=== PATIENT | male | born 1935 | race Caucasian/White ===

== ENCOUNTER → 2016-08-31 | Outpatient (CLI) | payer MEDICARE | LOC: OD 13:16 | PROVIDERS: ATTEND Radiology Radiation Oncology | DX: C61 Malignant neoplasm of prostate (principal) | CPT/HCPCS: 36415; 84153 ==

== ENCOUNTER → 2017-04-29 | Outpatient (CLI) | payer MEDICARE ==
--- NOTE | 2017-04-30 09:22 | RADIOLOGY REPORT (SQ) ---
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 TECHNIQUE: Sagittal and Axial imaging includes T1, T2, STIR and gradient echo sequences. Coronal T2/ HASTE imaging. LIMITATIONS: None. FINDINGS: VISUALIZED UPPER ABDOMEN: Limited evaluation. No acute or suspicious findings suggested. SEGMENTATION: No transitional anatomy. The lowest well-developed disc space is labeled L5-S1. ALIGNMENT: Mild degenerative anterolisthesis L4 on L5 and L5 on S1. VERTEBRAE: Intact. BONE MARROW: Reactive endplate changes L5-S1. DISC SIGNAL: Mild loss of T2 signal L1- 2 and L3-4. POSTERIOR ELEMENTS: Generally intact. No pars defect evident. HARDWARE: None in the spine. CORD AND CONUS: Normal in size and signal intensity. Conus at the appropriate level. SOFT TISSUES: No aortic aneurysm seen. No bulky retroperitoneal adenopathy or mass. No paraspinal mas s or fluid. L1-L2: No significant spinal stenosis or exit foraminal stenosis. L2-L3: Asymmetric leftward disc bulge. Facet overgrowth and ligamentous hypertrophy. Mild central c anal stenosis and left exit foraminal stenosis. L3-L4: Generalized disc bulge. Facet and ligamentous hypertrophy with lateral recess narrowing. Mod erate narrowing of the exit foramina and central canal stenosis. Worse than at L2-3. L4-L5: Generalized degenerative disc and bulge. Marked facet and ligamentous hypertrophy. Mild narr owing of the exit foramina. Marked central canal stenosis. L5-S1: Mild disc bulge without significant spinal stenosis or exit foraminal stenosis. LOWER THORACIC: Incompletely imaged. No stenosis seen. SACRUM: Visualized upper sacrum intact. OTHER: No other significant findings. IMPRESSION: Generalized spondylosis without fractures or worrisome bone lesions. Multilevel spinal stenosis worse at L4-5. Multilevel mild to moderate exit foraminal narrowing. TECHNICAL DOCUMENTATION: JOB ID: [id number]- All Rights Reserved
== END ==
LOC: RAD 16:39
PROVIDERS: ATTEND Family Medicine
DX: M53.1 Cervicobrachial syndrome (principal)
CPT/HCPCS: 72148

== ENCOUNTER → 2017-08-31 | Outpatient (CLI) | payer MEDICARE | LOC: OD 15:03 | PROVIDERS: ATTEND Radiology Radiation Oncology | DX: C61 Malignant neoplasm of prostate (principal) | CPT/HCPCS: 36415; 84153 ==

== ENCOUNTER → 2018-07-29 | Outpatient (CLI) | payer MEDICARE ==
--- NOTE | 2018-07-29 13:47 | RADIOLOGY REPORT (SQ) ---
EXAM DESCRIPTION: DUPLEX ART/MOIZ FLOW COMPLETE COMPLETED DATE/TIME: 07/29/2018 10:39 am REASON FOR STUDY: CHRONIC KIDNEY DISEASE, STAGE 2 (MILD) N18.2 CHRONIC KIDNEY DISEASE, STAGE 2 (MIL D) COMPARISON: None. TECHNIQUE: Realtime and static grayscale images acquired. Selected color Doppler, velocities and spe ctral images recorded. LIMITATIONS: None. FINDINGS: RIGHT KIDNEY: RENAL ARTERY VELOCITIES: 51 cm/sec. Segmental artery velocity 45 cm/sec. RENAL VEIN: Color doppler flow present, patent. VELOCITY RATIO: 0.3. Normal waveforms. KIDNEY: Normal size. There are 2 cysts, largest 3.7 cm. LEFT KIDNEY: RENAL ARTERY VELOCITIES: 45 cm/sec. Segmental artery velocity 33 cm/sec. RENAL VEIN: Color doppler flow present, patent. VELOCITY RATIO: 0.3. Normal waveforms. KIDNEY: Normal size. No significant pathology. BLADDER: Normal. OTHER: No other significant finding. IMPRESSION: NO DOPPLER EVIDENCE OF HEMODYNAMICALLY SIGNIFICANT RENAL ARTERY STENOSIS. COMMENT: NORMAL RENAL ARTERY/AORTA VELOCITY RATIO IS LESS THAN OR EQUAL TO 3.5. TECHNICAL DOCUMENTATION: JOB ID: [id number] [employer]- All Rights Reserved Reading location - IP/workstation name: [email or web address]
== END ==
LOC: RAD 10:01
PROVIDERS: ATTEND Family Medicine
DX: N18.2 Chronic kidney disease, stage 2 (mild) (principal)
CPT/HCPCS: 93975

== ENCOUNTER → 2019-03-15 | Outpatient (CLI) | payer MEDICARE ==
--- NOTE | 2019-03-15 12:01 | RADIOLOGY REPORT (SQ) ---
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 COMPARISON: None. FLUOROSCOPY TIME: FLUORO TIME: 3.4 minutes of fluoroscopy was used. 18 images saved to PACS. LIMITATIONS: None. PROCEDURE: Procedure explained to patient who gave consent. Using sterile technique the bladder was filled through an existing Wasserman catheter with approximately 200 ml of non-ionic contrast via gravity drip. Fluoroscopic imaging was obtained and saved to pac's. FINDINGS: BLADDER: Right ureteral stent is in place with the distal end within the bladder. Upon fi lling the bladder, there was a small amount of extravasation around the right ureteral reimplantation site. Along the right posterior border of the bladder, another small area of extravasation, possibl y in the area of the [place] ureter, can be seen and appears to be a contained contained leak. URETHRA: Not assessed due to Wasserman catheter placement. Retention balloon of the Wasserman catheter lies within the surgical defect from prostate surgery. LEFT URETER: Mild left vesicoureteral reflux. Grade 1 RIGHT URETER: Right ureteral stent in place. A ureteral stent is placement and there is reflux of co ntrast into the right renal collecting system. Recent right ureteral reimplantation. OTHER FINDINGS: No other abnormality noted in soft tissues or bone. POST VOID: There is complete emptying of the bladder been drained through Wasserman catheter. Extravasat ed contrast can be seen along the superior and right posterolateral aspect of the bladder. OTHER: No other significant finding. IMPRESSION: EXTRAVASATION ALONG THE RIGHT POSTERIOR LATERAL ASPECT OF THE BLADDER, POSSIBLY FROM THE AREA OF URETERAL RESECTION. SMALL AMOUNT OF EXTRAVASATION AROUND THE RIGHT URETERAL REIMPLANTATION SITE. RIGHT URETERAL STENT IS PATENT. GRADE 1 LEFT VESICOURETERAL REFLUX. COMMENT: Quality ID [id number]: Final reports for procedures using fluoroscopy that document radiation exp osure indices, or exposure time and number of fluorographic images (if radiation exposure indices are not available) TECHNICAL DOCUMENTATION: JOB ID: [id number] [employer]- All Rights Reserved Reading location - IP/workstation name: [email or web address] [id number]
== END ==
LOC: RAD 08:46
PROVIDERS: ATTEND Urology
DX: C67.2 Malignant neoplasm of lateral wall of bladder (principal); N13.70 Vesicoureteral-reflux, unspecified
CPT/HCPCS: 74430

== ENCOUNTER → 2019-06-05 | Outpatient (CLI) | payer MEDICARE ==
--- NOTE | 2019-06-05 12:28 | RADIOLOGY REPORT (SQ) ---
EXAM DESCRIPTION: CHEST PA/LATERAL COMPLETED DATE/TIME: 06/05/2019 11:56 am REASON FOR STUDY: CHILLS (WITHOUT FEVER) COMPARISON: 04/17/2016 EXAM PARAMETERS: NUMBER OF VIEWS: two views TECHNIQUE: Digital Frontal and Lateral radiographic views of the chest acquired. RADIATION DOSE: NA LIMITATIONS: none FINDINGS: LUNGS AND PLEURA: No opacities, masses or pneumothorax. No pleural effusion. Emphysematou s change with increased AP diameter. MEDIASTINUM AND HILAR STRUCTURES: No masses or contour abnormalities. HEART AND VASCULAR STRUCTURES: Heart normal size. No evidence for failure. Aortic atherosclerosis. BONES: No acute findings. HARDWARE: None in the chest. OTHER: No other significant finding. IMPRESSION: No focal consolidation or other evidence of acute cardiopulmonary process. TECHNICAL DOCUMENTATION: JOB ID: [id number] [employer]- All Rights Reserved Reading location - IP/workstation name: [email or web address]
== END ==
LOC: OD 11:38
PROVIDERS: ATTEND Family Medicine
DX: R68.83 Chills (without fever) (principal)
CPT/HCPCS: 71046

== ENCOUNTER → 2019-06-19 | Outpatient (CLI) | payer MEDICARE ==
--- NOTE | 2019-06-20 10:30 | RADIOLOGY REPORT (SQ) ---
EXAM DESCRIPTION: CT ABD/PELVIS NO ORAL OR IV COMPLETED DATE/TIME: 06/19/2019 4:03 pm REASON FOR STUDY: N28.9 DISORDER OF KIDNEY AND URETER, UNSPECIFIED N28.9 DISORDER OF KIDNEY AND URE TER, UNSPECIFIED COMPARISON: CT abdomen pelvis 03/10/2013, 12/29/2018 TECHNIQUE: CT scan of the abdomen and pelvis performed without intravenous or oral contrast. Images reviewed with lung, soft tissue, and bone windows. Reconstructed coronal and sagittal MPR images revi ewed. All images stored on PACS. All CT scanners at this facility use dose modulation, iterative reconstruction, and/or weight based d osing when appropriate to reduce radiation dose to as low as reasonably achievable (ALARA). [facility]: Dose Right [facility]: CareDose [facility]: Dose Right [facility]: Teradose 4D [facility]: Smart [employer] RADIATION DOSE: CT Rad equipment meets quality standard of care and radiation dose reduction techniq ues were employed. CTDIvol: 23.1 mGy. DLP: 1235 mGy-cm.mGy. LIMITATIONS: No IV or oral contrast. FINDINGS: Marked right hydronephrosis and hydroureter is seen down to the level where the ureter crocheter hand sses the iliac vessels. Just distal to this point, significant retroperitoneal soft tissue stranding is present with an adjacent 2 cm soft tissue mass abutting the distal right ureter. It is unclear w hether this represents a primary ureteral neoplasm with obstruction, or whether this represents prima ry colonic mass or colonic diverticulosis/inflammation causing right ureteral obstruction. These fin dings are best shown on axial images 70 through 78, and coronal images 58 through 74. Evaluation is limited by lack of IV and oral contrast. There is heterogeneous appearance of of normal size prostate, question bladder wall thickening along the right bladder trigone. Prostate cancer with regional metastatic nodes could cause this appearanc e. Report called to Dr. Cox. LOWER CHEST: No significant findings. No nodules or infiltrates. NON-CONTRASTED LIVER, SPLEEN, ADRENALS: Multiple benign hepatic cysts. Spleen, adrenal glands unrema rkable. PANCREAS: No masses. No peripancreatic inflammatory changes. GALLBLADDER: No identified stones by CT criteria. No inflammatory changes to suggest cholecystitis. RIGHT KIDNEY AND URETER: 4 cm cyst right upper pole kidney. Marked right hydronephrosis and hydroure ter as above. LEFT KIDNEY AND URETER: No suspicious masses. Assessment limited by lack of IV contrast. No signifi cant calcifications. No hydronephrosis or hydroureter. AORTA AND RETROPERITONEUM: No aneurysm. No retroperitoneal masses or adenopathy. BOWEL AND PERITONEAL CAVITY: No CT evidence of bowel obstruction or free intraperitoneal air or fluid . Descending and sigmoid colon diverticuli are present. Adjacent to the abnormal ureter, a short se gment of thick-walled sigmoid colon is present. Tumor or inflammation may be present in this segment of colon. APPENDIX: Surgically absent PELVIS, BLADDER, AND ABDOMINAL WALL:Findings as above BONES: No significant findings. OTHER: No other significant finding. IMPRESSION: Significant right hydronephrosis and hydroureter down to the distal right ureter. At th is point, abnormalities in the pelvic soft tissues adjacent to the ureter present contiguous with the sigmoid colon. Abnormal bladder wall thickening right bladder trigone postoperative changes to the prostate. Differential is primary distal right ureteral tumor versus extrinsic compression from colo n cancer or prostate cancer Findings discussed with Dr. Cox COMMENT: Quality ID # [id number]: Final reports with documentation of one or more dose reduction techniques (e.g., Automated exposure control, adjustment of the mA and/or kV according to patient size, use of iterative reconstruction technique) TECHNICAL DOCUMENTATION: JOB ID: [id number] [employer]- All Rights Reserved Reading location - IP/workstation name: [email or web address]
== END ==
LOC: RAD 14:58
PROVIDERS: ATTEND Physician Assistant
DX: N28.9 Disorder of kidney and ureter, unspecified (principal); N13.30 Unspecified hydronephrosis; N28.1 Cyst of kidney, acquired
CPT/HCPCS: 74176

== ENCOUNTER 2019-12-02 19:31 | Inpatient (IN) | payer MEDICARE ==
--- NOTE | 2019-12-02 19:39 | ER Document Report ---
ED Medical Screen (RME) - General Stated Complaint: ALTERED MENTAL STATUS Time Seen by Provider: 12/02/19 19:34 Primary Care Provider: LUPE ESPINOZA PA-C [Primary Care Provider] - Follow up as needed Notes: 84-year-old male who is normally alert and oriented x3 and functions independently apparently stopped responding to commands approximately 3 hours ago and was brought to the emergency department via EMS. EMS states that he armando l not follow any commands but is moving all 4 extremities equally. Cannot give me any other history. Physical exam I did examine the patient on the EMS stretcher as he was rolled into the emergency department, he is tachypneic, appears anxious, appears mildly short of breath, does move both arms but will not follow my commands to squeeze my hands. When I say his name he will turn and look at me. Patient was sent to the CT scanner to rule out acute hemorrhage. No focal deficits that would indicate acute ischemic stroke at this moment. Not made into a stroke alert. TRAVEL OUTSIDE OF THE [place] IN LAST 30 DAYS: No - Related Data Allergies/Adverse Reactions: Tetanus Vaccines and Toxoid [Tetanus] Allergy (Severe, Verified 04/17/16 09:19) reaction in Past Medical History - Past Medical History Cardiac Medical History: Reports: Hx Hypercholesterolemia, Hx Hypertension - meds x 20 yrs Denies: Hx Coronary Artery Disease, Hx Heart Attack Pulmonary Medical History: Reports: Hx Pneumonia - as child Denies: Hx Asthma, Hx Bronchitis, Hx COPD Neurological Medical History: Denies: Hx Cerebrovascular Accident, Hx Seizures Malignancy Medical History: Reports Hx Prostate Cancer Musculoskeltal Medical History: Denies Hx Arthritis Past Surgical History: Reports: Hx Urinary Tract Surgery. Denies: Hx Pacemaker - Immunizations Hx Diphtheria, Pertussis, Tetanus Vaccination: Yes Doctor's Discharge - Discharge Referrals: LUPE ESPINOZA PA-C [Primary Care Provider] - Follow up as needed
[2019-12-02] MEDS ORDERED: NORMAL SALINE IV PRN (20:02)
--- NOTE | 2019-12-02 20:15 | RADIOLOGY REPORT (SQ) ---
EXAM DESCRIPTION: CT HEAD WITHOUT IV CONTRAST COMPLETED DATE/TME: 12/02/2019 19:34 CLINICAL INDICATION: 84-year-old male with altered mental status. COMPARISON: None. TECHNIQUE: CT brain without contrast. This exam was performed according to our departmental dose optimization program which includes use of automated exposure control, adjustment of the mA and/or kV according to patient size and/or use of iterative reconstruction technique. FINDINGS: Motion limited examination Multifocal regions of patchy hypoattenuation are present in a subcortical and periventricular deep white matter distribution, nonspecific; however, most likely represent small vessel ischemic disease, age indeterminate. The ventricles, and sulci are prominent compatible with underlying volume loss. The hayden-white matter differentiation is preserved. There is no mass effect, midline shift, intra- or extra-axial fluid collection/acute hemorrhage. The osseous structures are unremarkable. The paranasal sinuses and mastoid air cells are clear. IMPRESSION: 1. No acute intracranial abnormalities. Nonspecific white matter change most likely small vessel ischemic disease, age indeterminate. 2. CT is insensitive for early evaluation of acute stroke. If there is clinical concern for acute ischemia, an MRI may be considered.
[2019-12-02 20:35] LABS: INTERNATIONAL RATION (INR) 1.25; PROTHROMBIN TIME 15.9 SEC (11.4-15.4)
[2019-12-02 20:36] LABS: APPEARANCE,URINE CLOUDY; BILIRUBIN,URINE NEGATIVE (NEGATIVE); COLOR,URINE YELLOW; GLUCOSE, URINE NEGATIVE (NEGATIVE); KETONES,URINE NEGATIVE (NEGATIVE); PROTEIN,URINE 100 mg/dL (NEGATIVE); URINE SPECIFIC GRAVITY 1.015; UROBILINOGEN,URINE NEGATIVE mg/dL (<2.0)
[2019-12-02 20:38] LABS: HEMATOCRIT 28.9 % (37.9-51.0); HEMOGLOBIN 9.2 g/dL (13.5-17.0); MEAN CORPUSCULAR HEMOGLOBIN 26.2 pg (27.0-33.4); MEAN CORPUSCULAR HGB CONC 31.7 g/dL (32.0-36.0); MEAN CORPUSCULAR VOLUME 83 fl (80-97)
[2019-12-02 20:52] LABS: ALKALINE PHOSPHATASE 312 U/L (38-126); ANION GAP 15 (5-19); ASPARTATE AMINO TRANSFERASE 44 U/L (17-59); BILIRUBIN,DIRECT 0.4 mg/dL (0.0-0.4); BILIRUBIN,TOTAL 1.2 mg/dL (0.2-1.3); BLOOD UREA NITROGEN 25 mg/dL (7-20); CALCIUM 8.9 mg/dL (8.4-10.2); CARBON DIOXIDE 16 mmol/L (22-30); CHLORIDE 97 mmol/L (98-107); GLUCOSE 99 mg/dL (75-110); POTASSIUM 5.8 mmol/L (3.6-5.0); TOTAL PROTEIN 6.4 g/dL (6.3-8.2)
--- NOTE | 2019-12-02 20:54 | RADIOLOGY REPORT (SQ) ---
XR CHEST 1 VIEW HISTORY: AMS, tachypnea. COMPARISON: 06/05/2019 FINDINGS: The heart size is within normal limits. There is no pulmonary vascular congestion. No consolidation, pleural effusion, or pneumothorax is seen. The bony structures are preserved. IMPRESSION: No evidence of acute cardiopulmonary disease.
[2019-12-02 21:06] LABS: ABSOLUTE LYMPHOCYTES# (MANUAL) 1.7 10^3/uL (0.5-4.7); ABSOLUTE MONOCYTES # (MANUAL) 0.7 10^3/uL (0.1-1.4); BAND NEUTROPHILS % (MANUAL) 2 % (3-5); BASOPHILS % (MANUAL) 0 % (0-2); EOSINOPHILS % (MANUAL) 1 % (0-6); LYMPHOCYTES % (MANUAL) 7 % (13-45); MONOCYTES % (MANUAL) 3 % (3-13); SEGMENTED NEUTROPHILS % (MAN) 87 % (42-78); TOTAL CELLS COUNTED 100
[2019-12-02 21:07] LABS: ANISOCYTOSIS 1+; HYPOCHROMASIA 1+; POLYCHROMASIA 1+
--- NOTE | 2019-12-02 21:07 | EKG REPORT ---
SEVERITY:- ABNORMAL ECG - WIDE COMPLEX TACHYCARDIA RBBB AND LAFB : Confirmed by: Evie Rojas MD 02-Dec-2019 21:06:39
[2019-12-02 21:08] LABS: PLATELET COMMENT ADEQUATE; PLATELET COUNT 551 10^3/uL (150-450)
[2019-12-02] MEDS ORDERED: PIPERACILLIN/TAZOBACTAM 4.5 GM VIAL IV ONE (21:13)
[2019-12-02] MEDS: PIPERACILLIN SODIUM/TAZOBACTAM 4.5 GM in NORMAL SALINE 100 ML IV SCH (21:15)
[2019-12-02 21:16] LABS: VENOUS BLOOD BASE EXCESS 0.1 mmol/L; VENOUS BLOOD HCO3 19.3 mmol/L (20-32); VENOUS BLOOD PH 7.64 (7.30-7.42)
[2019-12-02 21:46] LABS: VENOUS BLOOD PCO2 18.3 mmHg (35-63)
[2019-12-02] MEDS ORDERED: HYDROMORPHONE HCL INJ/PF 2 MG/ML AMPULE IV ONE (22:12)
--- NOTE | 2019-12-02 23:13 | RADIOLOGY REPORT (SQ) ---
EXAM DESCRIPTION: CT ABDOMEN PELVIS WITH IV CONTRAST COMPLETED DATE/TME: 12/02/2019 20:06 CLINICAL HISTORY: 84 years, Male, AMS, ABDOMINAL Pain This exam was performed according to our departmental dose-optimization program which includes automated exposure control, adjustment of the mA and/or kVp according to patient size and/or use of iterative reconstruction technique where applicable. As per history from technologist, contrast did not enter vascular circulation due to faulty IV. Compared to chest CT dated 08/31/2019. CT abdomen and pelvis dated 06/19/2019. FINDINGS: Visualized lung bases are within normal limits. Liver demonstrates multiple cysts measuring up to 3.5 cm. Liver is noted optimally evaluated due to streak artifact from adjacent arms and noncontrast imaging. Spleen, pancreas, adrenal glands are within normal limits. Gallbladder is unremarkable. There is interval development of soft tissue mass in the right kidney measuring 5.3 x 4.9 cm, which appears new from the prior study. Previously noted right hydronephrosis has resolved. There is also posterior right renal cyst measuring 3.4 cm, similar to prior study. There is no renal, ureteral or bladder calculus. No dilated loops of bowel to suggest obstruction. Mild amount of stool in the colon. Mild diffuse colonic diverticulosis without CT evidence for acute diverticulitis. There is a left lower quadrant ostomy noted. No free fluid or free air. Bladder is unremarkable. No abdominal or pelvic lymphadenopathy. Abdominal aorta moderately calcified without aneurysm. IMPRESSION: Right renal soft tissue mass is suspected, newly developed from prior CT abdomen dated 06/19/2019. Correlate clinically. Previously noted right hydronephrosis has resolved recommend follow-up renal ultrasound for further evaluation and follow-up CT with IV contrast with functioning IV.
--- NOTE | 2019-12-02 23:29 | ER Document Report ---
ED General - General Chief Complaint: Altered Mental Status Stated Complaint: ALTERED MENTAL STATUS Time Seen by Provider: 12/02/19 19:34 Primary Care Provider: LUPE ESPINOZA PA-C [Primary Care Provider] - Follow up as needed Mode of Arrival: Medic Information source: Emergency Med Personnel Notes: This 84-year-old male presents to the emergency department via EMS with a history of altered mental status. Apparently, he has developed decreased responsiveness, he is a normal and alert and responsive man with history of: CVA and bladder CA. He has received radiation therapy in October and immuno therapy for colon cancer. also notes that he has had some increased abdominal pain today. TRAVEL OUTSIDE OF THE [place] IN LAST 30 DAYS: No - Related Data Allergies/Adverse Reactions: Tetanus Vaccines and Toxoid [Tetanus] Allergy (Severe, Verified 04/17/16 09:19) reaction in Past Medical History - Social History Smoking Status: Unknown if Ever Smoked Family History: Other - Mother-Pacemaker - Past Medical History Cardiac Medical History: Reports: Hx Hypercholesterolemia, Hx Hypertension - meds x 20 yrs Denies: Hx Coronary Artery Disease, Hx Heart Attack Pulmonary Medical History: Reports: Hx Pneumonia - as child Denies: Hx Asthma, Hx Bronchitis, Hx COPD Neurological Medical History: Denies: Hx Cerebrovascular Accident, Hx Seizures Malignancy Medical History: Reports Hx Prostate Cancer Musculoskeletal Medical History: Denies Hx Arthritis Past Surgical History: Reports: Hx Urinary Tract Surgery. Denies: Hx Pacemaker - Immunizations Hx Diphtheria, Pertussis, Tetanus Vaccination: Yes Hx Pneumococcal Vaccination: 03/04/15 Review of Systems - Review of Systems -: Yes ROS unobtainable due to patient's medical condition - Due to altered status. Physical Exam - Vital signs Vitals: BP 106/85 12/02/19 19:50 - Notes Notes: PHYSICAL EXAMINATION: Physical Exam: General: Chronically ill-appearing 84-year-old man in extremities. HEENT: NC/AT, pupils equal round and reactive to light, MM moist,nares clear, oropharynx clear, airway patent Neck: supple, no adenopathy, no masses. Good range of motion Lungs: clear, no wheezing, no rales no rhonchi CVS: Regular rate and rhythm no murmur gallop or rub Abdomen: Soft, active, diffusely tender, no rebound, no masses, colostomy in left lower quadrant, draining. Ext: No edema, clubbing or cyanosis. Neuro: Alert, unable to answer questions, does not follow verbal commands. Course - Re-evaluation Re-evalutation: 12/02/19 23:34 Patient received as a acute altered mental status, CT scan of the head was performed, there are no focal neurologic findings, CT negative for hemorrhage, no signs of acute stroke. Evaluation of the patient question of sepsis with metabolic encephalopathy, diverticulitis with secondary sepsis and volume dep letion with ruptured viscus. Blood cultures x2, lactic acid, and IV fluids 30 mL/kg given in the emergency department. Patient is sent to CT for CT abdomen and pelvis with IV contrast. Apparently the IV blew and the patient did not receive IV contrast. Interpretation notes acute diverticulitis and a new renal mass. 12/03/19 00:08 I discussed the patient with the on-call physician for Dr. Cox, Dr. Gatica, he will admit the patient to the IMCU for further evaluation and treatment. - Vital Signs Vital signs: Temp Pulse Resp BP Pulse Ox 98 F 140 H 22 H 118/65 98 12/02/19 20:14 12/02/19 20:18 12/02/19 23:01 12/02/19 23:01 12/02/19 20:18 - Laboratory Result Diagrams: 12/02/19 20:10 12/02/19 20:10 Laboratory results interpreted by me: 12/02/19 12/02/19 12/02/19 20:10 20:10 20:10 WBC 24.0 H RBC 3.50 L Hgb 9.2 L Hct 28.9 L MCH 26.2 L MCHC 31.7 L RDW 19.0 H Plt Count 551 H Seg Neuts % (Manual) 87 H Band Neutrophils % 2 L Lymphocytes % (Manual) 7 L Abs Neuts (Manual) 21.4 H PT 15.9 H VBG pH VBG pCO2 VBG HCO3 Sodium 127.5 L Potassium 5.8 H Chloride 97 L Carbon Dioxide 16 L BUN 25 H Creatinine 1.60 H Est GFR ( Amer) 50 L Est GFR (MDRD) Non-Af 41 L Lactic Acid Alkaline Phosphatase 312 H Albumin 3.0 L Urine Protein Urine Blood Leukocyte Esterase Rfl 12/02/19 12/02/19 12/02/19 20:10 20:59 20:59 WBC RBC Hgb Hct MCH MCHC RDW Plt Count Seg Neuts % (Manual) Band Neutrophils % Lymphocytes % (Manual) Abs Neuts (Manual) PT VBG pH 7.64 H VBG pCO2 18.3 L* VBG HCO3 19.3 L Sodium Potassium Chloride Carbon Dioxide BUN Creatinine Est GFR ( Amer) Est GFR (MDRD) Non-Af Lactic Acid 3.4 H Alkaline Phosphatase Albumin Urine Protein 100 H Urine Blood LARGE H Leukocyte Esterase Rfl LARGE H 12/02/19 23:43 I have reviewed laboratory data and used this information for the treatment decisions regarding the patient. - Diagnostic Test Radiology reviewed: Image reviewed, Reports reviewed Radiology results interpreted by me: 12/02/19 23:46 Chest x-ray: No acute cardiopulmonary findings. CT head: No acute intracranial abnormalities, nonspecific white matter changes most likely small vessel ischemic disease, age indeterminate CT abdomen and pelvis: CT evidence for acute diverticulitis, there is a left lower quadrant ostomy noted. No free fluid or free air. Right renal soft tissue mass is suspected, newly developed from prior CT dated 06/19/2019. Previous right hydronephrosis has resolved. Radiology is recommending a follow- up renal ultrasound. - EKG Interpretation by Me EKG shows normal: ST-T Waves - No acute ST or T wave changes suggestive of ischemia. Rate: Tachycardia - Wide-complex tachycardia [place]/QRS: Left axis deviation, RBBB, LAHB/LAFB - Left anterior fascicular block, right bundle branch block Critical Care Note - Critical Care Note Total time excluding time spent on procedures (mins): 60 - Critical care time spent obtaining history from patient or surrogate, discussions with consultants, development of treatment plan with patient or surrogate, evaluation of patient's response to treatment, examination of patient, ordering and performing treatments and interventions, ordering and review of laboratory studies, re- evaluation of patient's condition, ordering and review of radiographic studies and review of old charts Discharge - Discharge Clinical Impression: Acute diverticulitis, Metabolic encephalopathy Abdominal pain Qualifiers: Abdominal location: unspecified location Qualified Code(s): R10.9 - Unspecified abdominal pain Sepsis Qualifiers: Sepsis type: sepsis due to unspecified organism Sepsis acute organ dysfunction status: unspecified Qualified Code(s): A41.9 - Sepsis, unspecified organism Condition: Fair Disposition: ADMITTED INPATIENT Admitting Provider: [facility] Unit Admitted: IMCU Referrals: LUPE ESPINOZA PA-C [Primary Care Provider] - Follow up as needed
[2019-12-03] MEDS ORDERED: HYDROMORPHONE HCL INJ/PF 2 MG/ML AMPULE IV ONE (00:12)
[2019-12-03] MEDS: PIPERACILLIN SODIUM/TAZOBACTAM 4.5 GM in NORMAL SALINE 100 ML IV SCH ×4 (01:05→17:06)
[2019-12-03] MEDS ORDERED: NORMAL SALINE 1000 ML 1,000 ML IV PRN (02:34)
[2019-12-03] MEDS: HYDROMORPHONE HCL INJ/PF 2 MG/ML AMPULE IV PRN (02:52)
[2019-12-03 03:42] LABS: ARTERIAL BLOOD BASE EXCESS -4.4 mmol/L; ARTERIAL BLOOD FIO2 28%; ARTERIAL BLOOD H2CO3 0.53 mmol/L (1.05-1.35); ARTERIAL BLOOD HCO3 16.4 mmol/L (20-24); ARTERIAL BLOOD O2 SATURATION 98.8 % (94-98); ARTERIAL BLOOD PH 7.59 (7.35-7.45)
[2019-12-03 03:43] LABS: ARTERIAL BLOOD PCO2 17.7 mmHg (35-45)
[2019-12-03] MEDS ORDERED: PIPERACILLIN/TAZOBACTAM 4.5 GM VIAL IV ONE (05:06)
[2019-12-03] MEDS: HEPARIN SOD (PORCINE) 5,000 UNIT/ML 1 ML VIAL SUBCUT SCH ×2 (06:48→14:13)
[2019-12-03 09:40] LABS: HEMATOCRIT 22.8 % (37.9-51.0); MEAN CORPUSCULAR HEMOGLOBIN 25.5 pg (27.0-33.4); MEAN CORPUSCULAR HGB CONC 31.8 g/dL (32.0-36.0); MEAN CORPUSCULAR VOLUME 80 fl (80-97); PLATELET COUNT 413 10^3/uL (150-450); RED BLOOD COUNT 2.85 10^6/uL (4.35-5.55); RED CELL DISTRIBUTION WIDTH 19.2 % (11.5-14.0)
[2019-12-03 09:51] LABS: ANION GAP 7 (5-19); BLOOD UREA NITROGEN 26 mg/dL (7-20); CALCIUM 7.8 mg/dL (8.4-10.2); CARBON DIOXIDE 18 mmol/L (22-30); CHLORIDE 105 mmol/L (98-107); GLUCOSE 88 mg/dL (75-110); POTASSIUM 5.6 mmol/L (3.6-5.0)
[2019-12-03 10:06] LABS: ABSOLUTE LYMPHOCYTES# (MANUAL) 0.1 10^3/uL (0.5-4.7); ABSOLUTE MONOCYTES # (MANUAL) 1.4 10^3/uL (0.1-1.4); BASOPHILS % (MANUAL) 0 % (0-2); EOSINOPHILS % (MANUAL) 0 % (0-6); LYMPHOCYTES % (MANUAL) 1 % (13-45); MONOCYTES % (MANUAL) 12 % (3-13); SEGMENTED NEUTROPHILS % (MAN) 87 % (42-78); TOTAL CELLS COUNTED 100
[2019-12-03 10:08] LABS: ANISOCYTOSIS 2+; HYPOCHROMASIA SLIGHT; OVALOCYTES 1+; PLATELET COMMENT ADEQUATE
[2019-12-03 10:09] LABS: HEMOGLOBIN 7.3 g/dL (13.5-17.0)
--- NOTE | 2019-12-03 11:30 | PDOC H&P ---
History of Present Illness Admission Date/PCP: 12/03/19 00:21 LUPE GARDUNO PA-C History of Present Illness: ANJALI SABA is a 84 year old male he came to the emergency room last night for evaluation of altered mental status, based on the emergency room record patient apparently developed decreased responsiveness, he is normally alert and responsive, he has a history of malignant neoplasm of the colon status post induction therapy in October and also immunotherapy he also has a history of bladder cancer based on the record. In the emergency room a non-contrasted CT at was done, there was no acute findings. The blood work that was done demonstrated severe leukocytosis white blood cell count 24,000 with a left shift that was lactic acidosis sepsis was suspected based on the presentation, including acute encephalopathy, acute kidney injury, severe leukocytosis family also stated that he has abdominal pain based on diet history a noncontrasted CT scan of the abdomen was obtained, it demonstrated multiple cysts in the liver measuring up to 3.5 cm also found was an interval development of soft tissue mass in the right kidney measure 5.3 x 4.8 cm which apparently was new compared to prior study from 06/19/2019 the previously noted right hydronephrosis has resolved patient was admitted to the hospital and started treatment for sepsis the CAT scan of the abdomen showed acute diverticulitis. He has grossly abnormal lab work that was hyponatremia. When I saw the patient on the floor he was somewhat confused, he is disoriented to place time and person but is alert, is not stuporous the arterial blood gas on FiO2 of 28%, pH 7.59, PCO2 17.7, PO2 112, bicarbonate 16.4 consistent with respiratory alkalosis secondary to metabolic acidosis Past Medical History Cardiac Medical History: Reports: Hyperlipidema, Hypertension - meds x 20 yrs Pulmonary Medical History: Reports: Pneumonia - as child Malignancy Medical History: Reports: Colorectal Cancer Social History Smoking Status: Unknown if Ever Smoked Electronic Cigarette use?: No Frequency of Alcohol Use: None Hx Recreational Drug Use: No Drugs: None Hx Prescription Drug Abuse: No Family History Family History: Other - Mother-Pacemaker Parental Family History Reviewed: Yes Children Family History Reviewed: Yes Sibling(s) Family History Reviewed.: Yes Medication/Allergy Home Medications: Lisinopril/Hydrochlorothiazide [Zestoretic 20-12.5 mg Tablet] 1 tab PO DAILY 05/07/12 Fluticasone Propionate [Flonase Nasal [place] 50 Mcg/[place] 16 gm] 2 spray NASL DAILY PRN 08/29/14 Metformin HCl [Glucophage 500 mg Tablet] 500 mg PO DAILY 08/29/14 Atorvastatin Calcium 40 mg PO DAILY 04/17/16 Rivaroxaban [Xarelto] 20 mg PO DAILY 04/17/16 Allergies/Adverse Reactions: Tetanus Vaccines and Toxoid [Tetanus] Allergy (Severe, Verified 04/17/16 09:19) reaction in Review of Systems Constitutional: PRESENT: night sweats. ABSENT: chills, fever(s), headache(s), weight gain, weight loss Eyes: ABSENT: visual disturbances Ears: ABSENT: hearing changes Cardiovascular: ABSENT: chest pain, dyspnea on exertion, edema, orthropnea, palpitations Respiratory: ABSENT: cough, hemoptysis Gastrointestinal: ABSENT: abdominal pain, constipation, diarrhea, hematemesis, hematochezia, nausea, vomiting Genitourinary: ABSENT: dysuria, hematuria Musculoskeletal: ABSENT: joint swelling Integumentary: ABSENT: rash, wounds Neurological: ABSENT: abnormal gait, abnormal speech, confusion, dizziness, focal weakness, syncope Psychiatric: ABSENT: anxiety, depression, homidical ideation, suicidal ideation Endocrine: ABSENT: cold intolerance, heat intolerance, menstrual abnormalities, polydipsia, polyuria Hematologic/Lymphatic: ABSENT: easy bleeding, easy bruising, lymphadenopathy Physical Exam Vital Signs: Temp Pulse Resp BP Pulse Ox 98.5 F 81 19 109/46 L 100 12/03/19 08:43 12/03/19 08:43 12/03/19 08:43 12/03/19 08:43 12/03/19 08:43 Intake & Output 12/02/19 12/03/19 12/04/19 06:59 06:59 06:59 Intake Total 2875 Balance 2875 Weight 82.3 kg General appearance: PRESENT: no acute distress, well-developed, well-nourished Head exam: PRESENT: atraumatic, normocephalic Eye exam: PRESENT: PERRLA Ear exam: PRESENT: normal external ear exam Mouth exam: PRESENT: moist, tongue midline Neck exam: PRESENT: full ROM Respiratory exam: PRESENT: clear to auscultation enmanuel Cardiovascular exam: PRESENT: RRR, +S1, +S2 Vascular exam: PRESENT: normal capillary refill GI/Abdominal exam: PRESENT: mass, normal bowel sounds, soft, other - There is a palpable mass in the right midabdomen below the liver, there is colostomy bag in the left quadrant of the abdomen Rectal exam: PRESENT: deferred Neurological exam: PRESENT: alert Psychiatric exam: PRESENT: appropriate affect, normal mood Skin exam: PRESENT: dry, intact, warm. ABSENT: cyanosis, rash Results Laboratory Results: 12/03/19 09:10 12/03/19 09:10 12/02/19 12/02/19 12/02/19 20:10 20:10 20:10 WBC 24.0 H RBC 3.50 L Hgb 9.2 L Hct 28.9 L MCV 83 MCH 26.2 L MCHC 31.7 L RDW 19.0 H Plt Count 551 H Seg Neutrophils % Not Reportable Carbonic Acid HCO3/H2CO3 Ratio ABG pH ABG pCO2 ABG pO2 ABG HCO3 ABG O2 Saturation ABG Base Excess VBG pH VBG pCO2 VBG HCO3 VBG Base Excess FiO2 Sodium 127.5 L Potassium 5.8 H Chloride 97 L Carbon Dioxide 16 L Anion Gap 15 BUN 25 H Creatinine 1.60 H Est GFR ( Amer) 50 L Glucose 99 Lactic Acid Calcium 8.9 Total Bilirubin 1.2 AST 44 Alkaline Phosphatase 312 H Total Protein 6.4 Albumin 3.0 L Urine Color YELLOW Urine Appearance CLOUDY Urine pH 8.0 Ur Specific [place] 1.015 Urine Protein 100 H Urine Glucose (UA) NEGATIVE Urine Ketones NEGATIVE Urine Blood LARGE H Urine RBC (Auto) >182 12/02/19 12/02/19 12/03/19 20:59 20:59 00:47 WBC RBC Hgb Hct MCV MCH MCHC RDW Plt Count Seg Neutrophils % Carbonic Acid HCO3/H2CO3 Ratio ABG pH ABG pCO2 ABG pO2 ABG HCO3 ABG O2 Saturation ABG Base Excess VBG pH 7.64 H VBG pCO2 18.3 L* VBG HCO3 19.3 L VBG Base Excess 0.1 FiO2 Sodium Potassium Chloride Carbon Dioxide Anion Gap BUN Creatinine Est GFR ( Amer) Glucose Lactic Acid 3.4 H 2.3 H Calcium Total Bilirubin AST Alkaline Phosphatase Total Protein Albumin Urine Color Urine Appearance Urine pH Ur Specific [place] Urine Protein Urine Glucose (UA) Urine Ketones Urine Blood Urine RBC (Auto) 12/03/19 12/03/19 12/03/19 02:58 03:30 05:18 WBC RBC Hgb Hct MCV MCH MCHC RDW Plt Count Seg Neutrophils % Carbonic Acid 0.53 L HCO3/H2CO3 Ratio 30:1 ABG pH 7.59 H ABG pCO2 17.7 L* ABG pO2 112.0 H ABG HCO3 16.4 L ABG O2 Saturation 98.8 H ABG Base Excess -4.4 VBG pH VBG pCO2 VBG HCO3 VBG Base Excess FiO2 28% Sodium Potassium Chloride Carbon Dioxide Anion Gap BUN Creatinine Est GFR ( Amer) Glucose Lactic Acid 1.3 1.0 Calcium Total Bilirubin AST Alkaline Phosphatase Total Protein Albumin Urine Color Urine Appearance Urine pH Ur Specific [place] Urine Protein Urine Glucose (UA) Urine Ketones Urine Blood Urine RBC (Auto) 12/03/19 12/03/19 12/03/19 09:10 09:10 09:10 WBC 12.0 H RBC 2.85 L Hgb 7.3 L Hct 22.8 L MCV 80 MCH 25.5 L MCHC 31.8 L RDW 19.2 H Plt Count 413 Seg Neutrophils % Not Reportable Carbonic Acid HCO3/H2CO3 Ratio ABG pH ABG pCO2 ABG pO2 ABG HCO3 ABG O2 Saturation ABG Base Excess VBG pH VBG pCO2 VBG HCO3 VBG Base Excess FiO2 Sodium 129.6 L Potassium 5.6 H Chloride 105 Carbon Dioxide 18 L Anion Gap 7 BUN 26 H Creatinine 1.62 H Est GFR ( Amer) 49 L Glucose 88 Lactic Acid 1.3 Calcium 7.8 L Total Bilirubin AST Alkaline Phosphatase Total Protein Albumin Urine Color Urine Appearance Urine pH Ur Specific [place] Urine Protein Urine Glucose (UA) Urine Ketones Urine Blood Urine RBC (Auto) 12/02/19 20:59 Troponin I 0.037 Impressions: Head CT 12/02/19 19:34 IMPRESSION: 1. No acute intracranial abnormalities. Nonspecific white matter change most likely small vessel ischemic disease, age indeterminate. 2. CT is insensitive for early evaluation of acute stroke. If there is clinical concern for acute ischemia, an MRI may be considered. Chest X-Ray 12/02/19 19:35 IMPRESSION: No evidence of acute cardiopulmonary disease. Abdomen/Pelvis CT 12/02/19 20:06 IMPRESSION: Right renal soft tissue mass is suspected, newly developed from prior CT abdomen dated 06/19/2019. Correlate clinically. Previously noted right hydronephrosis has resolved recommend follow-up renal ultrasound for further evaluation and follow-up CT with IV contrast with functioning IV. Assessment & Plan - Diagnosis (1) Sepsis Qualifiers: Sepsis type: sepsis due to unspecified organism Sepsis acute organ dysfunction status: with acute organ dysfunction Severe sepsis acute organ dysfunction type: encephalopathy Severe sepsis shock status: without septic shock Qualified Code(s): A41.9 - Sepsis, unspecified organism; R65.20 - Severe sepsis without septic shock; G93.40 - Encephalopathy, unspecified Is this a current diagnosis for this admission?: Yes Plan: He has sepsis picture with endorgan dysfunction, encephalopathy, acute kidney injury, source of infection is diverticulum, CAT scan demonstrated acute diverticulitis, patient started on Zosyn, fluid therapy initial bolus at 30 cc/kg initiated emergency room (2) Hyponatremia Is this a current diagnosis for this admission?: Yes Plan: It is most likely from hypovolemic hyponatremia patient still is very dry (3) Acute kidney injury Is this a current diagnosis for this admission?: Yes Plan: He has acute kidney injury, probably prerenal, the CAT scan also showed a mass in the right kidney, but there is no hydronephrosis to suggest postrenal etiology, blood pressure is maintained, unlikely be ATN is probably prerenal azotemia and not necessarily intrinsic kidney disease (4) Respiratory alkalosis Is this a current diagnosis for this admission?: Yes (5) Acute diverticulitis Is this a current diagnosis for this admission?: Yes Plan: Start antibiotic with Zosyn continue to monitor (6) Metabolic encephalopathy Is this a current diagnosis for this admission?: Yes Plan: This is probably from sepsis and hyponatremia (7) Right renal mass Is this a current diagnosis for this admission?: Yes Plan: Patient will need a contrasted CT scan to further define this lesion in the right kidney, I I will hold off on contrast CT until the kidney function normalizes - Time Time Spent: Greater than 70 Minutes Critical Time spent with patient: 35 or more minutes Medications reviewed and adjusted accordingly: Yes Anticipated Discharge Disposition: Home, Self Care Anticipated Discharge Timeframe: 7 days - Inpatient Certification Based on my medical assessment, after consideration of the patient's comorbidities, presenting symptoms, or acuity I expect that the services needed warrant INPATIENT care.: Yes I certify that my determination is in accordance with my understanding of Medicare's requirements for reasonable and necessary INPATIENT services [42 CFR 412.3e].: Yes
[2019-12-03] MEDS: NORMAL SALINE 1000 ML 1,000 ML IV PRN (14:26)
[2019-12-03] MEDS ORDERED: PATIROMER 8.4 GM SUSP PACKET PO ONE (14:30)
[2019-12-03] MEDS ORDERED: PATIROMER 8.4 GM SUSP PACKET PO SCH (17:00)
[2019-12-03 18:54] LABS: ALKALINE PHOSPHATASE 183 U/L (38-126); ANION GAP 7 (5-19); ASPARTATE AMINO TRANSFERASE 28 U/L (17-59); BILIRUBIN,DIRECT 0.1 mg/dL (0.0-0.4); BILIRUBIN,TOTAL 0.6 mg/dL (0.2-1.3); BLOOD UREA NITROGEN 26 mg/dL (7-20); CALCIUM 7.5 mg/dL (8.4-10.2); CARBON DIOXIDE 18 mmol/L (22-30); CHLORIDE 103 mmol/L (98-107); GLUCOSE 123 mg/dL (75-110); POTASSIUM 4.7 mmol/L (3.6-5.0); TOTAL PROTEIN 4.7 g/dL (6.3-8.2)
[2019-12-04] MEDS: NORMAL SALINE 1000 ML 1,000 ML IV PRN ×2 (04:08→17:13)
[2019-12-04 05:56] LABS: HEMATOCRIT 21.4 % (37.9-51.0); MEAN CORPUSCULAR HEMOGLOBIN 25.4 pg (27.0-33.4); MEAN CORPUSCULAR HGB CONC 31.3 g/dL (32.0-36.0); MEAN CORPUSCULAR VOLUME 81 fl (80-97); PLATELET COUNT 400 10^3/uL (150-450); RED BLOOD COUNT 2.64 10^6/uL (4.35-5.55); RED CELL DISTRIBUTION WIDTH 19.3 % (11.5-14.0); WHITE BLOOD COUNT 12.1 10^3/uL (4.0-10.5)
[2019-12-04 06:00] LABS: INTERNATIONAL RATION (INR) 1.39; PROTHROMBIN TIME 17.2 SEC (11.4-15.4)
[2019-12-04] MEDS ORDERED: HYDROCODONE/ACETAMINOPHEN 5-325 MG TABLET PO PRN (06:02)
[2019-12-04 06:17] LABS: ALKALINE PHOSPHATASE 184 U/L (38-126); ANION GAP 7 (5-19); ASPARTATE AMINO TRANSFERASE 30 U/L (17-59); BILIRUBIN,DIRECT 0.2 mg/dL (0.0-0.4); BILIRUBIN,TOTAL 0.6 mg/dL (0.2-1.3); BLOOD UREA NITROGEN 24 mg/dL (7-20); CALCIUM 7.7 mg/dL (8.4-10.2); CARBON DIOXIDE 19 mmol/L (22-30); CHLORIDE 104 mmol/L (98-107); GLUCOSE 96 mg/dL (75-110); POTASSIUM 5.1 mmol/L (3.6-5.0); TOTAL PROTEIN 4.7 g/dL (6.3-8.2)
[2019-12-04 06:28] LABS: ABSOLUTE LYMPHOCYTES# (MANUAL) 0.1 10^3/uL (0.5-4.7); ABSOLUTE MONOCYTES # (MANUAL) 0.8 10^3/uL (0.1-1.4); BASOPHILS % (MANUAL) 0 % (0-2); EOSINOPHILS % (MANUAL) 0 % (0-6); LYMPHOCYTES % (MANUAL) 1 % (13-45); MONOCYTES % (MANUAL) 7 % (3-13); SEGMENTED NEUTROPHILS % (MAN) 92 % (42-78); TOTAL CELLS COUNTED 100
[2019-12-04] MEDS: PIPERACILLIN SODIUM/TAZOBACTAM 4.5 GM in NORMAL SALINE 100 ML IV SCH ×5 (06:28→17:11)
[2019-12-04] MEDS: HEPARIN SOD (PORCINE) 5,000 UNIT/ML 1 ML VIAL SUBCUT SCH ×4 (06:28→21:51)
[2019-12-04] MEDS: HYDROMORPHONE HCL INJ/PF 2 MG/ML AMPULE IV PRN ×2 (06:29→16:01)
[2019-12-04 06:32] LABS: ANISOCYTOSIS 1+; BURR CELLS SLIGHT; OVALOCYTES 1+; POIKILOCYTOSIS 1+; TOXIC GRANULATION SLIGHT
[2019-12-04 06:33] LABS: PLATELET COMMENT ADEQUATE
[2019-12-04 06:48] LABS: HEMOGLOBIN 6.7 g/dL (13.5-17.0)
[2019-12-04 07:48] LABS: ABSOLUTE RETICS # 0.042 10^6/uL (0.028-0.122); RETICULOCYTE COUNT (AUTO) 1.61 % (0.66-2.85)
--- NOTE | 2019-12-04 08:34 | PDOC CONSULTATION ---
Consultation Consult Date: 12/04/19 Attending physician:: CARLTON DUKE Provider Consulted: LAURA LAGUNAS Consult reason:: Known h/o stage IV bladder ca currently on immunoRx History of Present Illness Admission Date/PCP: 12/03/19 00:21 LUPE GARDUNO PA-C Patient complains of: weakness, confusion History of Present Illness: ANJALI SABA is a 84 year old male doing better this am presented w/ confusion, weakness, found to have acute on chronic RF, also hb dropped, this am to 6.7. 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 XRT palliative to R pelvic site completed 10/2019. PDL-1 10% so started first dose immunoRx w/ TECENTRIQ on 11/16/19. Of note, since we have been seeing him hb has been low at 7-9 range, we have been giving him procrit as outpt. Past Medical History Cardiac Medical History: Reports: Hyperlipidema, Hypertension - meds x 20 yrs Denies: Coronary Artery Disease, Myocardial Infarction Pulmonary Medical History: Reports: Pneumonia - as child Denies: Asthma, Bronchitis, Chronic Obstructive Pulmonary Disease (COPD) Neurological Medical History: Denies: Seizures Malignancy Medical History: Reports: Other - Bladder ca hx as above, prostate hx: s/p primary XRT 2012, no recurrent dx Musculoskeltal Medical History: Denies: Arthritis Psychiatric Medical History: Denies: Depression Hematology: Denies: Anemia Past Surgical History Past Surgical History: Denies: Pacemaker Social History Smoking Status: Unknown if Ever Smoked Electronic Cigarette use?: No Frequency of Alcohol Use: None Hx Recreational Drug Use: No Drugs: None Hx Prescription Drug Abuse: No - Advance Directive Resuscitation Status: Full Code Family History Family History: Other - Mother-Pacemaker Parental Family History Reviewed: Yes Children Family History Reviewed: Yes Sibling(s) Family History Reviewed.: Yes Medication/Allergy Home Medications: Atorvastatin Calcium 40 mg PO DAILY 04/17/16 Gabapentin [Neurontin 100 mg Capsule] 100 mg PO TID 12/03/19 Hydrocodone/Acetaminophen [Lorcet 5-325 mg Tablet] 1 each PO Q6HP PRN 12/03/19 Megestrol Acetate 400 mg PO DAILY 12/03/19 Omeprazole 20 mg PO DAILY 12/03/19 Oxycodone HCl [Oxy-Ir 5 mg Tablet] 10 mg PO Q6HP PRN 12/03/19 Paroxetine HCl [Paxil 20 mg Tablet] 20 mg PO DAILY 12/03/19 Tramadol HCl [Ultram 50 mg Tablet] 50 mg PO BID 12/03/19 Allergies/Adverse Reactions: Tetanus Vaccines and Toxoid [Tetanus] Allergy (Severe, Verified 04/17/16 09:19) reaction in Review of Systems Constitutional: ABSENT: chills, fever(s), headache(s), weight gain, weight loss Eyes: ABSENT: visual disturbances Ears: ABSENT: hearing changes Cardiovascular: ABSENT: chest pain, dyspnea on exertion, edema, orthropnea, palpitations Respiratory: ABSENT: cough, hemoptysis Gastrointestinal: ABSENT: abdominal pain, constipation, diarrhea, hematemesis, hematochezia, nausea, vomiting Genitourinary: ABSENT: dysuria, hematuria Musculoskeletal: ABSENT: joint swelling Integumentary: ABSENT: rash, wounds Neurological: ABSENT: abnormal gait, abnormal speech, confusion, dizziness, focal weakness, syncope Psychiatric: ABSENT: anxiety, depression, homidical ideation, suicidal ideation Endocrine: ABSENT: cold intolerance, heat intolerance, polydipsia, polyuria Hematologic/Lymphatic: ABSENT: easy bleeding, easy bruising Physical Exam Vital Signs: Temp Pulse Resp BP Pulse Ox 98.0 F 90 22 H 137/60 H 100 12/04/19 04:03 12/04/19 07:00 12/04/19 04:03 12/04/19 04:03 12/04/19 04:03 Intake & Output 12/03/19 12/04/19 12/05/19 06:59 06:59 06:59 Intake Total 2870 8016 Output Total 5683 Balance 2871 1671 Weight 82.3 kg 84.8 kg General appearance: PRESENT: no acute distress, well-developed, well-nourished Head exam: PRESENT: atraumatic, normocephalic Eye exam: PRESENT: conjunctiva pink, EOMI, PERRLA. ABSENT: scleral icterus Ear exam: PRESENT: normal external ear exam Mouth exam: PRESENT: moist, tongue midline Neck exam: ABSENT: carotid bruit, JVD, lymphadenopathy, thyromegaly Respiratory exam: PRESENT: clear to auscultation enmanuel. ABSENT: rales, rhonchi, wheezes Cardiovascular exam: PRESENT: RRR. ABSENT: diastolic murmur, rubs, systolic mur mur Pulses: PRESENT: normal dorsalis pedis pul Vascular exam: PRESENT: normal capillary refill GI/Abdominal exam: PRESENT: normal bowel sounds, soft. ABSENT: distended, guarding, mass, organolmegaly, rebound, tenderness Rectal exam: PRESENT: deferred Extremities exam: PRESENT: full ROM. ABSENT: calf tenderness, clubbing, pedal edema Neurological exam: PRESENT: alert, awake, oriented to person, oriented to place, oriented to time, oriented to situation, CN II-XII grossly intact. ABSENT: motor sensory deficit Psychiatric exam: PRESENT: appropriate affect, normal mood. ABSENT: homicidal ideation, suicidal ideation Skin exam: PRESENT: dry, intact, warm. ABSENT: cyanosis, rash Results Laboratory Results: 12/04/19 05:22 12/04/19 05:22 12/03/19 12/03/19 12/03/19 09:10 09:10 09:10 WBC 12.0 H RBC 2.85 L Hgb 7.3 L Hct 22.8 L MCV 80 MCH 25.5 L MCHC 31.8 L RDW 19.2 H Plt Count 413 Seg Neutrophils % Not Reportable Retic Count (auto) Sodium 129.6 L Potassium 5.6 H Chloride 105 Carbon Dioxide 18 L Anion Gap 7 BUN 26 H Creatinine 1.62 H Est GFR ( Amer) 49 L Est GFR (Non-Af Amer) Glucose 88 Lactic Acid 1.3 Calcium 7.8 L Total Bilirubin AST Alkaline Phosphatase Total Protein Albumin 12/03/19 12/03/19 12/04/19 16:15 18:11 05:22 WBC 12.1 H RBC 2.64 L Hgb 6.7 L Hct 21.4 L MCV 81 MCH 25.4 L MCHC 31.3 L RDW 19.3 H Plt Count 400 Seg Neutrophils % Not Reportable Retic Count (auto) Sodium Cancelled 127.8 L Potassium Cancelled 4.7 Chloride Cancelled 103 Carbon Dioxide Cancelled 18 L Anion Gap Cancelled 7 BUN Cancelled 26 H Creatinine Cancelled 1.52 H Est GFR ( Amer) Cancelled 53 L Est GFR (Non-Af Amer) Cancelled Glucose Cancelled 123 H Lactic Acid Calcium Cancelled 7.5 L Total Bilirubin Cancelled 0.6 AST Cancelled 28 Alkaline Phosphatase Cancelled 183 H Total Protein Cancelled 4.7 L Albumin Cancelled 2.0 L 12/04/19 12/04/19 05:22 05:22 WBC RBC Hgb Hct MCV MCH MCHC RDW Plt Count Seg Neutrophils % Retic Count (auto) 1.61 Sodium 130.2 L Potassium 5.1 H Chloride 104 Carbon Dioxide 19 L Anion Gap 7 BUN 24 H Creatinine 1.49 H Est GFR ( Amer) 54 L Est GFR (Non-Af Amer) Glucose 96 Lactic Acid Calcium 7.7 L Total Bilirubin 0.6 AST 30 Alkaline Phosphatase 184 H Total Protein 4.7 L Albumin 2.0 L 12/02/19 20:59 Troponin I 0.037 Impressions: Head CT 12/02/19 19:34 IMPRESSION: 1. No acute intracranial abnormalities. Nonspecific white matter change most likely small vessel ischemic disease, age indeterminate. 2. CT is insensitive for early evaluation of acute stroke. If there is clinical concern for acute ischemia, an MRI may be considered. Chest X-Ray 12/02/19 19:35 IMPRESSION: No evidence of acute cardiopulmonary disease. Abdomen/Pelvis CT 12/02/19 20:06 IMPRESSION: Right renal soft tissue mass is suspected, newly developed from prior CT abdomen dated 06/19/2019. Correlate clinically. Previously noted right hydronephrosis has resolved recommend follow-up renal ultrasound for further evaluation and follow-up CT with IV contrast with functioning IV. Assessment & Plan - Diagnosis (1) Urothelial carcinoma Is this a current diagnosis for this admission?: Yes Plan: Stage IV bladder s/p cycle #1 of tecentriq. He was due for 2nd cycle this week. All rx on hold until pt gets better. Don't know that any current presentation due to drug. But hb drop possible 2nd to bleeding from colon invasion. Will see how pt does. CT A/P w/ no perforation or free air but they are noting new R renal mass but comparison done to 06/[address] CT and there was CT done at [facility] in august that maybe better comparison. So unsure if this is truly new. (2) Anemia Qualifiers: Anemia type: due to chronic kidney disease Chronic kidney disease stage: stage 3 (moderate) Qualified Code(s): N18.3 - Chronic kidney disease, stage 3 (moderate); D63.1 - Anemia in chronic kidney disease Is this a current diagnosis for this admission?: Yes Plan: Some element of anemia CKD but also probable blood loss. Agree w/ blood tx, iron studies repeated to see if IV iron needed but last iron studies were normal about 2m ago. - Time Time Spent: Greater than 70 Minutes - Inpatient Certification Based on my medical assessment, after consideration of the patient's comorb idities, presenting symptoms, or acuity I expect that the services needed warrant INPATIENT care.: Yes I certify that my determination is in accordance with my understanding of Medicare's requirements for reasonable and necessary INPATIENT services [42 CFR 412.3e].: Yes Medical Necessity: Risk of Complication if Not Cared For in Hospital
[2019-12-04] MEDS ORDERED: FUROSEMIDE INJ/PF 20 MG/2 ML SDV IV PRN (08:39)
[2019-12-04 09:04] LABS: FOLATE 6.01 ng/mL (>2.76)
[2019-12-04 09:09] LABS: IRON(TIBC) < 10.1 ug/dL (49-181)
[2019-12-04] MEDS ORDERED: PANTOPRAZOLE SODIUM 20 MG TABLET.DR PO SCH (10:00)
[2019-12-04] MEDS: PANTOPRAZOLE SODIUM 20 MG TABLET.DR PO SCH (11:43)
[2019-12-04] MEDS: PAROXETINE HCL 20 MG TABLET PO SCH (11:43)
--- NOTE | 2019-12-04 12:30 | PDOC PROGRESS REPORT ---
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 Radu ferris Patient CT scan suggest a right-sided renal mass which is new from the previous but no hydronephrosis diverticulosis but no diverticulitis Hemoglobin is running low always normally Patient's denied any chest pain no short of breath Also have a chronic kidney disease with a normal creatinine running 1.7 range Reason For Visit: SEPSIS, ACUTE DIVERTICLITIS, NEW RENAL MASS Physical Exam Vital Signs: Temp Pulse Resp BP Pulse Ox 97.7 F 78 16 124/59 L 100 12/04/19 11:35 12/04/19 11:35 12/04/19 11:35 12/04/19 11:35 12/04/19 11:35 Intake & Output 12/03/19 12/04/19 12/05/19 06:59 06:59 06:59 Intake Total 2875 3396 Output Total 1725 Balance 2875 1671 Weight 82.3 kg 84.8 kg General appearance: PRESENT: no acute distress, well-developed, well-nourished Head exam: PRESENT: atraumatic, normocephalic Eye exam: PRESENT: conjunctiva pink, EOMI, PERRLA. ABSENT: scleral icterus Ear exam: PRESENT: normal external ear exam Mouth exam: PRESENT: moist, tongue midline Neck exam: PRESENT: full ROM. ABSENT: carotid bruit, JVD, lymphadenopathy, thyromegaly Cardiovascular exam: PRESENT: RRR. ABSENT: diastolic murmur, rubs, systolic murmur Vascular exam: PRESENT: normal capillary refill GI/Abdominal exam: PRESENT: normal bowel sounds, soft. ABSENT: distended, gu arding, mass, organolmegaly, rebound, tenderness Additonal comments: Ileostomy bag is present Rectal exam: PRESENT: deferred Neurological exam: PRESENT: alert, awake, oriented to person, oriented to place, oriented to time, oriented to situation, CN II-XII grossly intact. ABSENT: motor sensory deficit Psychiatric exam: PRESENT: appropriate affect, normal mood. ABSENT: homicidal ideation, suicidal ideation Skin exam: PRESENT: dry, intact, warm. ABSENT: cyanosis, rash Results Laboratory Results: 12/04/19 05:22 12/04/19 05:22 12/03/19 12/03/19 12/04/19 16:15 18:11 05:22 WBC 12.1 H RBC 2.64 L Hgb 6.7 L Hct 21.4 L MCV 81 MCH 25.4 L MCHC 31.3 L RDW 19.3 H Plt Count 400 Seg Neutrophils % Not Reportable Retic Count (auto) Sodium Cancelled 127.8 L Potassium Cancelled 4.7 Chloride Cancelled 103 Carbon Dioxide Cancelled 18 L Anion Gap Cancelled 7 BUN Cancelled 26 H Creatinine Cancelled 1.52 H Est GFR ( Amer) Cancelled 53 L Est GFR (Non-Af Amer) Cancelled Glucose Cancelled 123 H Calcium Cancelled 7.5 L Iron TIBC Ferritin Total Bilirubin Cancelled 0.6 AST Cancelled 28 Alkaline Phosphatase Cancelled 183 H Total Protein Cancelled 4.7 L Albumin Cancelled 2.0 L Vitamin B12 Folate Blood Type Antibody Screen 12/04/19 12/04/19 12/04/19 05:22 05:22 05:22 WBC RBC Hgb Hct MCV MCH MCHC RDW Plt Count Seg Neutrophils % Retic Count (auto) 1.61 Sodium 130.2 L Potassium 5.1 H Chloride 104 Carbon Dioxide 19 L Anion Gap 7 BUN 24 H Creatinine 1.49 H Est GFR ( Amer) 54 L Est GFR (Non-Af Amer) Glucose 96 Calcium 7.7 L Iron < 10.1 L TIBC 126 L Ferritin 845.00 H Total Bilirubin 0.6 AST 30 Alkaline Phosphatase 184 H Total Protein 4.7 L Albumin 2.0 L Vitamin B12 > 1000.0 H Folate 6.01 Blood Type Antibody Screen 12/04/19 08:28 WBC RBC Hgb Hct MCV MCH MCHC RDW Plt Count Seg Neutrophils % Retic Count (auto) Sodium Potassium Chloride Carbon Dioxide Anion Gap BUN Creatinine Est GFR ( Amer) Est GFR (Non-Af Amer) Glucose Calcium Iron TIBC Ferritin Total Bilirubin AST Alkaline Phosphatase Total Protein Albumin Vitamin B12 Folate Blood Type A NEGATIVE Antibody Screen NEGATIVE 12/02/19 20:10 Catheterized Urine Urine Culture - Final NO GROWTH 2 DAYS 12/02/19 20:59 Troponin I 0.037 Impressions: Head CT 12/02/19 19:34 IMPRESSION: 1. No acute intracranial abnormalities. Nonspecific white matter change most likely small vessel ischemic disease, age indeterminate. 2. CT is insensitive for early evaluation of acute stroke. If there is clinical concern for acute ischemia, an MRI may be considered. Chest X-Ray 12/02/19 19:35 IMPRESSION: No evidence of acute cardiopulmonary disease. Abdomen/Pelvis CT 12/02/19 20:06 IMPRESSION: Right renal soft tissue mass is suspected, newly developed from prior CT abdomen dated 06/19/2019. Correlate clinically. Previously noted right hydronephrosis has resolved recommend follow-up renal ultrasound for further evaluation and follow-up CT with IV contrast with functioning IV. Assessment & Plan - Diagnosis (1) Acute kidney injury Is this a current diagnosis for this admission?: Yes Plan: Continues the IV fluid we consult the nephrology (2) Anemia Qualifiers: Anemia type: due to chronic kidney disease Chronic kidney disease stage: stage 3 (moderate) Qualified Code(s): N18.3 - Chronic kidney disease, stage 3 (moderate); D63.1 - Anemia in chronic kidney disease Is this a current diagnosis for this admission?: Yes Plan: Some element of anemia CKD but also probable blood loss. Agree w/ blood tx, iron studies repeated to see if IV iron needed but last iron studies were normal about 2m ago. (3) Hyponatremia Is this a current diagnosis for this admission?: Yes Plan: Currently all improving (4) Metabolic encephalopathy Is this a current diagnosis for this admission?: Yes Plan: Currently all improving (5) Right renal mass Is this a current diagnosis for this admission?: Yes Plan: We will get the ultrasounds (6) Sepsis Qualifiers: Sepsis type: sepsis due to unspecified organism Sepsis acute organ dy sfunction status: with acute organ dysfunction Severe sepsis acute organ dysfunction type: encephalopathy Severe sepsis shock status: without septic shock Qualified Code(s): A41.9 - Sepsis, unspecified organism; R65.20 - Severe sepsis without septic shock; G93.40 - Encephalopathy, unspecified Is this a current diagnosis for this admission?: Yes Plan: Continues to IV antibiotic (7) Urothelial carcinoma Is this a current diagnosis for this admission?: Yes Plan: Patient is currently see a Dr. Radu ferris (8) Abdominal pain Qualifiers: Abdominal location: unspecified location Qualified Code(s): R10.9 - Unspecified abdominal pain Is this a current diagnosis for this admission?: Yes - Time Time Spent with patient: 15-24 minutes Level of Care: IMCU Medications reviewed and adjusted accordingly: Yes Anticipated discharge: Home with Homehealth Anticipated DC Timeframe: within 72 hours - Plan Summary Plan Summary: Continues to current medications Discussed with the patient's son regarding the patient's current condition and also discussed about the CODE STATUS He will discuss with his mom
--- NOTE | 2019-12-04 16:02 | RADIOLOGY REPORT (SQ) ---
EXAM DESCRIPTION: U/S RETROPERITON (RENAL/AORTA) IMAGES COMPLETED DATE/TIME: 12/04/2019 3:41 pm REASON FOR STUDY: renal mass COMPARISON: CT dated 12/02/[address] dated 08/28/2019 TECHNIQUE: Dynamic and static grayscale images acquired of the kidneys and bladder and recorded on P ACS. Additional selected color Doppler and spectral images recorded. LIMITATIONS: None. FINDINGS: RIGHT KIDNEY: The right kidney measures 12.4 cm in length. Normal echogenicity. There is an 8.3 by 5.7 x 6.3 cm complex mass this appears solid. Moderate dilatation of the renal pelvis and upper pole calices. No calcifications. LEFT KIDNEY: The left kidney measures 13 cm in length. Normal echogenicity. No solid or suspicio us masses. Mild prominence of the left renal pelvis. No calcifications. BLADDER: The bladder is decompressed by Wasserman catheter. OTHER FINDINGS: No other significant finding. IMPRESSION: Solid-appearing mass arising off the upper to mid pole the right kidney. This could rep resent infectious or inflammatory process. Neoplasm cannot be excluded. Mild dilatation of the righ t collecting system. TECHNICAL DOCUMENTATION: JOB ID: [id number] [employer]- All Rights Reserved Reading location - IP/workstation name: [email or web address]
[2019-12-04] MEDS ORDERED: ONDANSETRON HCL INJ/PF 4 MG/2 ML SDV IV PRN (18:01)
--- NOTE | 2019-12-04 19:20 | RADIOLOGY REPORT (SQ) ---
EXAM DESCRIPTION: CHEST SINGLE VIEW IMAGES COMPLETED DATE/TIME: 12/04/2019 6:05 pm REASON FOR STUDY: SVT COMPARISON: Chest radiograph, 12/02/2019. EXAM PARAMETERS: NUMBER OF VIEWS: One view. TECHNIQUE: Single frontal radiographic view of the chest acquired. RADIATION DOSE: NA LIMITATIONS: None. FINDINGS: LUNGS AND PLEURA: No opacities, masses or pneumothorax. No pleural effusion. MEDIASTINUM AND HILAR STRUCTURES: No masses. Contour normal. HEART AND VASCULAR STRUCTURES: Heart normal in size. Normal vasculature. BONES: No acute findings. HARDWARE: None in the chest. OTHER: No other significant finding. IMPRESSION: NO ACUTE RADIOGRAPHIC FINDING IN THE CHEST. TECHNICAL DOCUMENTATION: JOB ID: [id number] 2010 [employer]- All Rights Reserved Reading location - IP/workstation name: [email or web address]
[2019-12-04 19:42] LABS: ALBUMIN 2.1 g/dL (3.5-5.0); ALKALINE PHOSPHATASE 192 U/L (38-126); ANION GAP 7 (5-19); ASPARTATE AMINO TRANSFERASE 31 U/L (17-59); BILIRUBIN,DIRECT 0.6 mg/dL (0.0-0.4); BILIRUBIN,TOTAL 1.5 mg/dL (0.2-1.3); BLOOD UREA NITROGEN 22 mg/dL (7-20); CALCIUM 7.7 mg/dL (8.4-10.2); CARBON DIOXIDE 16 mmol/L (22-30); CHLORIDE 106 mmol/L (98-107); CREATINE KINASE 48 U/L (55-170); GLUCOSE 102 mg/dL (75-110); POTASSIUM 4.7 mmol/L (3.6-5.0); TOTAL PROTEIN 4.9 g/dL (6.3-8.2)
[2019-12-04 20:03] LABS: CREATINE KINASE MB 1.28 ng/mL (<4.55); TROPONIN I 0.032 ng/mL
[2019-12-04 22:34] LABS: HEMATOCRIT 27.8 % (37.9-51.0); MEAN CORPUSCULAR HEMOGLOBIN 26.7 pg (27.0-33.4); MEAN CORPUSCULAR HGB CONC 32.6 g/dL (32.0-36.0); MEAN CORPUSCULAR VOLUME 82 fl (80-97); PLATELET COUNT 387 10^3/uL (150-450); WHITE BLOOD COUNT 14.4 10^3/uL (4.0-10.5)
[2019-12-04 23:08] LABS: ABSOLUTE LYMPHOCYTES# (MANUAL) 0.1 10^3/uL (0.5-4.7); ABSOLUTE MONOCYTES # (MANUAL) 0.3 10^3/uL (0.1-1.4); BASOPHILS % (MANUAL) 0 % (0-2); EOSINOPHILS % (MANUAL) 1 % (0-6); LYMPHOCYTES % (MANUAL) 1 % (13-45); MONOCYTES % (MANUAL) 2 % (3-13); SEGMENTED NEUTROPHILS % (MAN) 96 % (42-78); TOTAL CELLS COUNTED 100
[2019-12-04 23:09] LABS: ANISOCYTOSIS 1+; BURR CELLS 1+; OVALOCYTES SLIGHT; PLATELET COMMENT ADEQUATE; POIKILOCYTOSIS SLIGHT; POLYCHROMASIA SLIGHT; TOXIC GRANULATION SLIGHT
[2019-12-04 23:10] LABS: HEMOGLOBIN 9.1 g/dL (13.5-17.0)
[2019-12-05 01:22] LABS: CREATINE KINASE MB 1.02 ng/mL (<4.55); TROPONIN I 0.042 ng/mL
[2019-12-05] MEDS: PIPERACILLIN SODIUM/TAZOBACTAM 4.5 GM in NORMAL SALINE 100 ML IV SCH ×4 (01:57→17:55)
[2019-12-05] MEDS: HEPARIN SOD (PORCINE) 5,000 UNIT/ML 1 ML VIAL SUBCUT SCH ×3 (05:40→21:37)
[2019-12-05] MEDS: PANTOPRAZOLE SODIUM 20 MG TABLET.DR PO SCH (05:40)
[2019-12-05 08:39] LABS: ANION GAP 11 (5-19); BLOOD UREA NITROGEN 20 mg/dL (7-20); CALCIUM 7.6 mg/dL (8.4-10.2); CARBON DIOXIDE 14 mmol/L (22-30); CHLORIDE 105 mmol/L (98-107); CREATINE KINASE 30 U/L (55-170); GLUCOSE 78 mg/dL (75-110); POTASSIUM 4.4 mmol/L (3.6-5.0)
[2019-12-05 08:42] LABS: HEMATOCRIT 28.9 % (37.9-51.0); HEMOGLOBIN 9.4 g/dL (13.5-17.0); MEAN CORPUSCULAR HGB CONC 32.3 g/dL (32.0-36.0); MEAN CORPUSCULAR VOLUME 84 fl (80-97); PLATELET COUNT 391 10^3/uL (150-450); RED BLOOD COUNT 3.46 10^6/uL (4.35-5.55); RED CELL DISTRIBUTION WIDTH 17.5 % (11.5-14.0); WHITE BLOOD COUNT 16.4 10^3/uL (4.0-10.5)
[2019-12-05 08:51] LABS: CREATINE KINASE MB 1.02 ng/mL (<4.55); TROPONIN I 0.053 ng/mL
--- NOTE | 2019-12-05 09:20 | EKG REPORT ---
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
[2019-12-05] MEDS: NORMAL SALINE 1000 ML 1,000 ML IV PRN (09:25)
[2019-12-05] MEDS: PAROXETINE HCL 20 MG TABLET PO SCH (09:26)
--- NOTE | 2019-12-05 09:30 | PDOC PROGRESS REPORT ---
Subjective Progress Note for:: 12/05/19 Subjective:: Patient is feeling better Denied any chest pain no short of breath Patient hemoglobin is all stable Discussed with the patient's son regarding the patient's current conditions Patient's renal ultrasound suggested right renal mass Patient EKG is stable as per discussed with the cardiology Reason For Visit: SEPSIS, ACUTE DIVERTICLITIS, NEW RENAL MASS Physical Exam Vital Signs: Temp Pulse Resp BP Pulse Ox 99.1 F 84 20 158/75 H 98 12/05/19 03:31 12/05/19 07:00 12/05/19 03:31 12/05/19 03:31 12/05/19 03:31 Intake & Output 12/04/19 12/05/19 12/06/19 06:59 06:59 06:59 Intake Total 3396 2980 Output Total 1725 2225 Balance 1671 755 Weight 84.8 kg 85.3 kg 85.3 kg General appearance: PRESENT: no acute distress, well-developed, well-nourished Head exam: PRESENT: atraumatic, normocephalic Eye exam: PRESENT: conjunctiva pink, EOMI, PERRLA. ABSENT: scleral icterus Ear exam: PRESENT: normal external ear exam Mouth exam: PRESENT: moist, tongue midline Neck exam: PRESENT: full ROM. ABSENT: carotid bruit, JVD, lymphadenopathy, thyromegaly Respiratory exam: PRESENT: clear to auscultation enmanuel Cardiovascular exam: PRESENT: RRR. ABSENT: diastolic murmur, rubs, systolic murmur Vascular exam: PRESENT: normal capillary refill GI/Abdominal exam: PRESENT: normal bowel sounds, soft. ABSENT: distended, guarding, mass, organolmegaly, rebound, tenderness Rectal exam: PRESENT: deferred Musculoskeletal exam: PRESENT: ambulatory Neurological exam: PRESENT: alert, awake, oriented to person, oriented to place, oriented to time, oriented to situation, CN II-XII grossly intact. ABSENT: motor sensory deficit Psychiatric exam: PRESENT: appropriate affect, normal mood. ABSENT: homicidal ideation, suicidal ideation Skin exam: PRESENT: dry, intact, warm. ABSENT: cyanosis, rash Results Laboratory Results: 12/05/19 07:44 12/04/19 12/04/19 12/04/19 08:28 19:05 22:17 WBC 14.4 H RBC 3.40 L Hgb 9.1 L D Hct 27.8 L MCV 82 MCH 26.7 L MCHC 32.6 RDW 18.0 H Plt Count 387 Seg Neutrophils % Not Reportable Sodium 129.0 L Potassium 4.7 Chloride 106 Carbon Dioxide 16 L Anion Gap 7 BUN 22 H Creatinine 1.44 H Est GFR ( Amer) 57 L Glucose 102 Calcium 7.7 L Magnesium 2.2 Total Bilirubin 1.5 H AST 31 Alkaline Phosphatase 192 H Total Protein 4.9 L Albumin 2.1 L Blood Type A NEGATIVE Antibody Screen NEGATIVE 12/05/19 07:44 WBC RBC Hgb Hct MCV MCH MCHC RDW Plt Count Seg Neutrophils % Sodium 130.2 L Potassium 4.4 Chloride 105 Carbon Dioxide 14 L Anion Gap 11 BUN 20 Creatinine 1.36 H Est GFR ( Amer) > 60 Glucose 78 Calcium 7.6 L Magnesium Total Bilirubin AST Alkaline Phosphatase Total Protein Albumin Blood Type Antibody Screen 12/02/19 20:10 Catheterized Urine Urine Culture - Final NO GROWTH 2 DAYS 12/02/19 12/04/19 12/04/19 20:59 19:05 19:05 Creatine Kinase 48 L CK-MB (CK-2) 1.28 Troponin I 0.037 0.032 12/05/19 12/05/19 12/05/19 00:46 00:46 07:44 Creatine Kinase 38 L 30 L CK-MB (CK-2) 1.02 Troponin I 0.042 12/05/19 07:44 Creatine Kinase CK-MB (CK-2) 1.02 Troponin I 0.053 Impressions: Head CT 12/02/19 19:34 IMPRESSION: 1. No acute intracranial abnormalities. Nonspecific white matter change most likely small vessel ischemic disease, age indeterminate. 2. CT is insensitive for early evaluation of acute stroke. If there is clinical concern for acute ischemia, an MRI may be considered. Abdomen/Pelvis CT 12/02/19 20:06 IMPRESSION: Right renal soft tissue mass is suspected, newly developed from prior CT abdomen dated 06/19/2019. Correlate clinically. Previously noted right hydronephrosis has resolved recommend follow-up renal ultrasound for further evaluation and follow-up CT with IV contrast with functioning IV. Chest X-Ray 12/04/19 00:00 IMPRESSION: NO ACUTE RADIOGRAPHIC FINDING IN THE CHEST. Renal Ultrasound 12/04/19 00:00 IMPRESSION: Solid-appearing mass arising off the upper to mid pole the right kidney. This could represent infectious or inflammatory process. Neoplasm cannot be excluded. Mild dilatation of the right collecting system. Assessment & Plan - Diagnosis (1) Acute kidney injury Is this a current diagnosis for this admission?: Yes (2) Anemia Qualifiers: Anemia type: due to chronic kidney disease Chronic kidney disease stage: stage 3 (moderate) Qualified Code(s): N18.3 - Chronic kidney disease, stage 3 (moderate); D63.1 - Anemia in chronic kidney disease Is this a current diagnosis for this admission?: Yes (3) Hyponatremia Is this a current diagnosis for this admission?: Yes (4) Metabolic encephalopathy Is this a current diagnosis for this admission?: Yes (5) Right renal mass Is this a current diagnosis for this admission?: Yes (6) Sepsis Qualifiers: Sepsis type: sepsis due to unspecified organism Sepsis acute organ dysfunction status: with acute organ dysfunction Severe sepsis acute organ dysfunction type: encephalopathy Severe sepsis shock status: without septic shock Qualified Code(s): A41.9 - Sepsis, unspecified organism; R65.20 - Severe sepsis without septic shock; G93.40 - Encephalopathy, unspecified Is this a current diagnosis for this admission?: Yes (7) Urothelial carcinoma Is this a current diagnosis for this admission?: Yes (8) Abdominal pain Qualifiers: Abdominal location: unspecified location Qualified Code(s): R10.9 - Unspecified abdominal pain Is this a current diagnosis for this admission?: Yes - Time Time Spent with patient: 15-24 minutes Level of Care: IMCU Medications reviewed and adjusted accordingly: Yes Anticipated discharge: Home with Homehealth Anticipated DC Timeframe: within 48 hours - Plan Summary Plan Summary: Continues to current medications
[2019-12-05 09:51] LABS: ABSOLUTE LYMPHOCYTES# (MANUAL) 0.3 10^3/uL (0.5-4.7); BASOPHILS % (MANUAL) 0 % (0-2); EOSINOPHILS % (MANUAL) 0 % (0-6); LYMPHOCYTES % (MANUAL) 2 % (13-45); MONOCYTES % (MANUAL) 6 % (3-13); SEGMENTED NEUTROPHILS % (MAN) 92 % (42-78); TOTAL CELLS COUNTED 100
[2019-12-05 09:57] LABS: RBC MORPHOLOGY COMMENT NORMO-CYTIC/CHROMIC
[2019-12-05 09:58] LABS: ANISOCYTOSIS 1+; BURR CELLS SLIGHT; PLATELET CLUMPS PRESENT; PLATELET COMMENT ADEQUATE; POLYCHROMASIA SLIGHT
--- NOTE | 2019-12-05 12:43 | PDOC CONSULTATION ---
Consultation Consult Date: 12/05/19 Provider Consulted: DAWN PEREIRA Consult reason:: TARYN History of Present Illness Admission Date/PCP: 12/03/19 00:21 LUPE GARDUNO PA-C History of Present Illness: ANJALI SABA is a 84 year old gentleman with history of stage IV metastatic urothelial carcinoma followed by Dr. Mack, hypertension, hyperlipidemia who was admitted in December 02 for altered mental status. Patient was found to have leukocytosis, lactic acidosis and CT findings of acute diverticulitis contributing to initial diagnosis of sepsis. Patient is currently on IV Zosyn for that. Patient also presented with abnormal kidney function with BUN of 26, creatinine of 1.62, associated with potassium of 5.6, bicarbonate of 18 and sodium of 129.6. He also presented with anemia with hemoglobin of 7.3. Patient was started on IV fluid hydration. He is currently nonoliguric and has passed about 2225 mL of urine for the past [address] in December 01 showed a right renal soft tissue mass described as newly developed compared to CT scan on 06/19/2019. Kidney ultrasound done yesterday, December 03 showed right kidney at 12.4 cm and left kidney at 13 cm with a complex mass measuring 8.3 x 5.7 x 6.3 cm under right kidney. There is also mild dilation of the collecting system. The patient seems to have responded pretty well with IV fluid hydration with improvement of his kidney function to BUN of 20 and creatinine of 1.36 today. He remains to have low bicarbonate of 14 and sodium of 130.2. Repeat hemoglobin is now 9.4 presumably with some blood transfusion. Dr. Clancy has seen and evaluated the patient in consultation and has noted a new finding of the right renal mass. Today the patient said he feels better although he has not slept while here in the hospital. His mental status appears to be improved as well. He admits poor appetite and some burning in urination with the Wasserman catheter in. He has some shortness of breath which is usual. He also complains of some nausea. Otherwise he denies any pain, chest pains, vomiting, nor diarrhea. Past Medical History Cardiac Medical History: Reports: Hyperlipidemia, Hypertension-primary Pulmonary Medical History: Reports: Pneumonia - as child Renal/ Medical History: Reports: Hydronephrosis Malignancy Medical History: Reports: Colorectal Cancer, Other - Bladder ca hx as above, prostate hx: s/p primary XRT 2012, no recurrent dx Past Surgical History Past Surgical History: Reports: Appendectomy, Colostomy Social History Information Source: Patient Smoking Status: Former Smoker Electronic Cigarette use?: No Frequency of Alcohol Use: None Hx Recreational Drug Use: No Drugs: None Hx Prescription Drug Abuse: No - Advance Directive Resuscitation Status: Full Code Family History Family History: Other - Mother has pacemaker Parental Family History Reviewed: Yes Children Family History Reviewed: Yes Sibling(s) Family History Reviewed.: Yes Medication/Allergy Home Medications: Atorvastatin Calcium 40 mg PO DAILY 04/17/16 Gabapentin [Neurontin 100 mg Capsule] 100 mg PO TID 12/03/19 Hydrocodone/Acetaminophen [Lorcet 5-325 mg Tablet] 1 each PO Q6HP PRN 12/03/19 Megestrol Acetate 400 mg PO DAILY 12/03/19 Omeprazole 20 mg PO DAILY 12/03/19 Oxycodone HCl [Oxy-Ir 5 mg Tablet] 10 mg PO Q6HP PRN 12/03/19 Paroxetine HCl [Paxil 20 mg Tablet] 20 mg PO DAILY 12/03/19 Tramadol HCl [Ultram 50 mg Tablet] 50 mg PO BID 12/03/19 Allergies/Adverse Reactions: Tetanus Vaccines and Toxoid [Tetanus] Allergy (Severe, Verified 04/17/16 09:19) reaction in Review of Systems All systems: reviewed and no additional remarkable complaints except as stated Review of Systems: Constitutional: ABSENT: chills, fatigue, fever(s), headache(s), weight gain, weight loss; reports generalized weakness and poor appetite Eyes: ABSENT: visual disturbances Ears: ABSENT: hearing changes Cardiovascular: ABSENT: chest pain, dyspnea on exertion, edema, orthropnea, palpitations Respiratory: ABSENT: cough, dyspnea, hemoptysis Gastrointestinal: ABSENT: abdominal pain, constipation, diarrhea, hematemesis, hematochezia, nausea, vomiting Genitourinary: ABSENT: dysuria, hematuria Musculoskeletal: ABSENT: joint swelling Integumentary: ABSENT: rash, wounds Neurological: ABSENT: abnormal gait, abnormal speech, confusion, dizziness, focal weakness, numbness, syncope Psychiatric: ABSENT: anxiety, depression Endocrine: ABSENT: cold intolerance, heat intolerance, polydipsia, polyuria Hematologic/Lymphatic: ABSENT: easy bleeding, easy bruising, lymphadenopathy Physical Exam Vital Signs: Temp Pulse Resp BP Pulse Ox 98.8 F 74 14 150/66 H 99 12/05/19 07:24 12/05/19 07:24 12/05/19 07:24 12/05/19 07:24 12/05/19 07:24 Intake & Output 12/04/19 12/05/19 12/06/19 06:59 06:59 06:59 Intake Total 3396 2980 Output Total 1725 2225 Balance 1671 755 Weight 84.8 kg 85.3 kg 85.3 kg Exam: General appearance: No acute distress, cooperative, well-developed, well- nourished Head exam: PRESENT: atraumatic, normocephalic Eye exam: PRESENT: Conjunctiva pale, EOMI, PERRLA. ABSENT: conjunctival injection, scleral icterus Mouth exam: PRESENT: moist, neck supple, tongue midline Neck exam: PRESENT: full ROM. ABSENT: carotid bruit, JVD, lymphadenopathy, thyromegaly Respiratory exam: PRESENT: clear to auscultation bilaterally. ABSENT: rales, rhonchi, stridor, wheezes Cardiovascular exam: PRESENT: RRR, +S1, +S2. ABSENT: systolic murmur Pulses: PRESENT: normal radial pulses, normal dorsalis pedis pulses GI/Abdominal exam: PRESENT: normal bowel sounds, soft. Colostomy in the left lower quadrant area ABSENT: guarding, mass, tenderness Rectal exam: Deferred Extremities exam: PRESENT: full ROM. ABSENT: calf tenderness, pedal edema Musculoskeletal: PRESENT: full ROM. ABSENT: deformity Neurological exam: PRESENT: alert, Awake, Oriented to person, Oriented to place, Oriented to time, reflexes normal, CN II-XII grossly intact. ABSENT: motor sensory deficit Psychiatric exam: PRESENT: appropriate affect, normal mood. ABSENT: homicidal ideation, suicidal ideation Skin exam: PRESENT: intact, dry, warm. ABSENT: rash Results Laboratory Results: 12/05/19 07:44 12/05/19 07:44 12/04/19 12/04/19 12/04/19 08:28 19:05 22:17 WBC 14.4 H RBC 3.40 L Hgb 9.1 L D Hct 27.8 L MCV 82 MCH 26.7 L MCHC 32.6 RDW 18.0 H Plt Count 387 Seg Neutrophils % Not Reportable Sodium 129.0 L Potassium 4.7 Chloride 106 Carbon Dioxide 16 L Anion Gap 7 BUN 22 H Creatinine 1.44 H Est GFR ( Amer) 57 L Glucose 102 Calcium 7.7 L Magnesium 2.2 Total Bilirubin 1.5 H AST 31 Alkaline Phosphatase 192 H Total Protein 4.9 L Albumin 2.1 L Blood Type A NEGATIVE Antibody Screen NEGATIVE 12/05/19 12/05/19 07:44 07:44 WBC 16.4 H RBC 3.46 L Hgb 9.4 L Hct 28.9 L MCV 84 MCH 27.0 MCHC 32.3 RDW 17.5 H Plt Count 391 Seg Neutrophils % Not Reportable Sodium 130.2 L Potassium 4.4 Chloride 105 Carbon Dioxide 14 L Anion Gap 11 BUN 20 Creatinine 1.36 H Est GFR ( Amer) > 60 Glucose 78 Calcium 7.6 L Magnesium Total Bilirubin AST Alkaline Phosphatase Total Protein Albumin Blood Type Antibody Screen 12/02/19 20:10 Catheterized Urine Urine Culture - Final NO GROWTH 2 DAYS 12/02/19 12/04/19 12/04/19 20:59 19:05 19:05 Creatine Kinase 48 L CK-MB (CK-2) 1.28 Troponin I 0.037 0.032 12/05/19 12/05/19 12/05/19 00:46 00:46 07:44 Creatine Kinase 38 L 30 L CK-MB (CK-2) 1.02 Troponin I 0.042 12/05/19 07:44 Creatine Kinase CK-MB (CK-2) 1.02 Troponin I 0.053 Impressions: Head CT 12/02/19 19:34 IMPRESSION: 1. No acute intracranial abnormalities. Nonspecific white matter change most likely small vessel ischemic disease, age indeterminate. 2. CT is insensitive for early evaluation of acute stroke. If there is clinical concern for acute ischemia, an MRI may be considered. Abdomen/Pelvis CT 12/02/19 20:06 IMPRESSION: Right renal soft tissue mass is suspected, newly developed from prior CT abdomen dated 06/19/2019. Correlate clinically. Previously noted right hydronephrosis has resolved recommend follow-up renal ultrasound for further evaluation and follow-up CT with IV contrast with functioning IV. Chest X-Ray 12/04/19 00:00 IMPRESSION: NO ACUTE RADIOGRAPHIC FINDING IN THE CHEST. Renal Ultrasound 12/04/19 00:00 IMPRESSION: Solid-appearing mass arising off the upper to mid pole the right kidney. This could represent infectious or inflammatory process. Neoplasm cannot be excluded. Mild dilatation of the right collecting system. Assessment & Plan - Diagnosis (1) Acute kidney injury Is this a current diagnosis for this admission?: Yes Plan: Patient is nonoliguric. His most likely secondary to acute prerenal azotemia with volume depletion with good response to IV fluid hydration with improvement of the kidney function now. Continue maintenance IV fluids. Patient does not need any renal replacement therapy. Continue to monitor kidney function. Avoid nephrotoxic medications. (2) Hyponatremia Is this a current diagnosis for this admission?: Yes Plan: Slowly improving. This could also be due to volume depletion. Continue normal saline for now. (3) Acute diverticulitis Is this a current diagnosis for this admission?: Yes Plan: On IV Zosyn per Dr. Cox. (4) Anemia Qualifiers: Anemia type: due to chronic kidney disease Chronic kidney disease stage: stage 3 (moderate) Qualified Code(s): N18.3 - Chronic kidney disease, stage 3 (moderate); D63.1 - Anemia in chronic kidney disease Is this a current diagnosis for this admission?: Yes Plan: Likely to have multifactorial causes. Dr. Mack following. (5) Metabolic acidosis Is this a current diagnosis for this admission?: Yes Plan: Patient has initial presenting respiratory alkalosis. His bicarbonate went from 18 to now 14. This could be partly due to his TARYN, infection and volume expansion. I will start sodium bicarbonate orally. (6) Metabolic encephalopathy Is this a current diagnosis for this admission?: Yes Plan: Appears to have resolved. (7) Right renal mass Is this a current diagnosis for this admission?: Yes Plan: Will defer to oncologist, Dr. Mack as to the further plan on this. (8) Urothelial carcinoma Is this a current diagnosis for this admission?: Yes Plan: Stage IV followed by Dr. Mack. - Notes Notes: Thank you very much for this consultation. - Time Time Spent: 50 to 70 Minutes
[2019-12-05] MEDS: SODIUM BICARBONATE 650 MG TABLET PO SCH ×2 (13:31→21:36)
--- NOTE | 2019-12-05 14:10 | PDOC PROGRESS REPORT ---
Subjective Progress Note for:: 12/05/19 Subjective:: Patient states that he is feeling better today. He is hoping to get out of the hospital by the , as this will be his wedding anniversary. He states that his bowels are improving. No chest pains or dyspnea. Reason For Visit: SEPSIS, ACUTE DIVERTICLITIS, NEW RENAL MASS Physical Exam Vital Signs: Temp Pulse Resp BP Pulse Ox 98.8 F 74 14 150/66 H 99 12/05/19 07:24 12/05/19 07:24 12/05/19 07:24 12/05/19 07:24 12/05/19 07:24 Intake & Output 12/04/19 12/05/19 12/06/19 06:59 06:59 06:59 Intake Total 3396 2980 Output Total 1725 2225 Balance 1671 755 Weight 84.8 kg 85.3 kg 85.3 kg General appearance: PRESENT: no acute distress, well-developed, well-nourished Head exam: PRESENT: normocephalic Eye exam: PRESENT: EOMI Respiratory exam: PRESENT: unlabored Extremities exam: ABSENT: pedal edema Neurological exam: PRESENT: alert, awake Psychiatric exam: PRESENT: appropriate affect Skin exam: PRESENT: normal color Results Laboratory Results: 12/05/19 07:44 12/05/19 07:44 12/04/19 12/04/19 12/04/19 08:28 19:05 22:17 WBC 14.4 H RBC 3.40 L Hgb 9.1 L D Hct 27.8 L MCV 82 MCH 26.7 L MCHC 32.6 RDW 18.0 H Plt Count 387 Seg Neutrophils % Not Reportable Sodium 129.0 L Potassium 4.7 Chloride 106 Carbon Dioxide 16 L Anion Gap 7 BUN 22 H Creatinine 1.44 H Est GFR ( Amer) 57 L Glucose 102 Calcium 7.7 L Magnesium 2.2 Total Bilirubin 1.5 H AST 31 Alkaline Phosphatase 192 H Total Protein 4.9 L Albumin 2.1 L Blood Type A NEGATIVE Antibody Screen NEGATIVE 12/05/19 12/05/19 07:44 07:44 WBC 16.4 H RBC 3.46 L Hgb 9.4 L Hct 28.9 L MCV 84 MCH 27.0 MCHC 32.3 RDW 17.5 H Plt Count 391 Seg Neutrophils % Not Reportable Sodium 130.2 L Potassium 4.4 Chloride 105 Carbon Dioxide 14 L Anion Gap 11 BUN 20 Creatinine 1.36 H Est GFR ( Amer) > 60 Glucose 78 Calcium 7.6 L Magnesium Total Bilirubin AST Alkaline Phosphatase Total Protein Albumin Blood Type Antibody Screen 12/02/19 12/04/19 12/04/19 20:59 19:05 19:05 Creatine Kinase 48 L CK-MB (CK-2) 1.28 Troponin I 0.037 0.032 12/05/19 12/05/19 12/05/19 00:46 00:46 07:44 Creatine Kinase 38 L 30 L CK-MB (CK-2) 1.02 Troponin I 0.042 12/05/19 07:44 Creatine Kinase CK-MB (CK-2) 1.02 Troponin I 0.053 Impressions: Head CT 12/02/19 19:34 IMPRESSION: 1. No acute intracranial abnormalities. Nonspecific white matter change most likely small vessel ischemic disease, age indeterminate. 2. CT is insensitive for early evaluation of acute stroke. If there is clinical concern for acute ischemia, an MRI may be considered. Abdomen/Pelvis CT 12/02/19 20:06 IMPRESSION: Right renal soft tissue mass is suspected, newly developed from prior CT abdomen dated 06/19/2019. Correlate clinically. Previously noted right hydronephrosis has resolved recommend follow-up renal ultrasound for further evaluation and follow-up CT with IV contrast with functioning IV. Chest X-Ray 12/04/19 00:00 IMPRESSION: NO ACUTE RADIOGRAPHIC FINDING IN THE CHEST. Renal Ultrasound 12/04/19 00:00 IMPRESSION: Solid-appearing mass arising off the upper to mid pole the right kidney. This could represent infectious or inflammatory process. Neoplasm cannot be excluded. Mild dilatation of the right collecting system. Assessment & Plan - Diagnosis (1) Acute diverticulitis Is this a current diagnosis for this admission?: Yes Plan: As per Primary team. He appears to be improving. (2) Urothelial carcinoma Is this a current diagnosis for this admission?: Yes Plan: All treatment on hold for now. Will discuss further as outpatient. - Time Time Spent with patient: Less than 15 minutes
--- NOTE | 2019-12-05 18:00 | PDOC CONSULTATION ---
Consultation-Blank Consultation: CARDIOLOGY CONSULTATION by Dr. Saeid Oneil on 12/05/2019. Patient seen at 11:30 AM. 60 minutes spent as patient with more than 50% of time spent direct patient care. REASON FOR CONSULTATION: SVT. CONSULT REQUESTING PHYSICIAN: Dr. Cox. HISTORY OF PRESENT ILLNESS: Patient is a 84-year-old male with known history of hypertension, hyperlipidemia and urothelial cancer admitted with confusion and found to have acute on chronic renal insufficiency and anemia. The patient with treatment is improved and at present is awake and alert and oriented x3. He last evening was noted to have short bursts of SVT which review of the monitor strips shows that it is a multifocal atrial tachycardia. The p atient denies any pulmonary disease. He denies chest pain or discomfort. Looking at his monitor strip today and his EKG is suggestive of wandering atrial pacemaker/chaotic atrial mechanism. At present denies any chest pain discomfort. There is no shortness of breath. There is no PND orthopnea or leg edema. Past Medical History Cardiac Medical History: Reports: Hyperlipidema, Hypertension - meds x 20 yrs. Denies history of heart failure. No history of myocardial infarction or coronary artery disease or angina. Note the patient has no prior history of arrhythmia but this admission had an SVT which looks more like multifocal atrial tachycardia. No history of syncope. Pulmonary Medical History: Reports: Pneumonia - as child. Denies history of asthma or COPD. No history of sleep apnea or pulmonary embolism. Endocrine: No history of diabetes mellitus or thyroid disease. GENITOURINARY: As mentioned earlier grade 3 renal cancer. Patient admitted with acute on chronic renal failure. Hematological: History of anemia treated with Procrit as an outpatient. ANUS: No history of TIA CVA. No history of headaches migraines or seizures. PSYCHIATRIC: History of depression present. 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 XRT palliative to R pelvic site completed 10/2019. SURGICAL HISTORY: He has had a distal urethrectomy on the right, transrectal resection of bladder tumor history of diverting colostomy. RESUSCITATION STATUS: The patient is a full code. His is a surrogate healt hcare decision maker. Social History Smoking Status: Unknown if Ever Smoked Electronic Cigarette use?: No Frequency of Alcohol Use: None Hx Recreational Drug Use: No Drugs: None Hx Prescription Drug Abuse: No Current Medications Generic Name Dose Route Start Last Admin Trade Name Freq PRN Reason Stop Dose Admin Hydrocodone Bitart/Acetaminophen 1 tab 12/04/19 06:02 Woody 5-325 Mg Tablet PO 12/11/19 06:01 Q6HP PRN FOR PAIN Heparin Sodium (Porcine) 5,000 unit 12/03/19 06:00 12/05/19 13:09 Heparin Inj 5,000 Units/Ml 1 Ml Vial SUBCUT 01/02/20 05:59 Not Given Q8 KISHOR Hydromorphone HCl 0.5 mg 12/03/19 02:21 12/04/19 16:01 Dilaudid Inj/Pf 2 Mg/Ml Ampule IV 12/10/19 02:20 0.5 mg Q4HP PRN Administration PAIN Piperacillin Sod/Tazobactam 100 mls @ 200 mls/hr 12/02/19 20:30 12/05/19 17:50 Sod 4.5 gm/ Sodium Chloride IV 12/09/19 20:29 Infused Q6 KISHOR Infusion Sodium Chloride 1,000 mls @ 75 mls/hr 12/03/19 14:32 12/05/19 09:25 Nacl 0.9% 1000 Ml Iv Soln IV 01/02/20 14:31 75 mls/hr CONTINUOUS PRN Administration THIS MED IS NOT "PRN" Ondansetron HCl 4 mg 12/04/19 18:01 Zofran Inj/Pf 4 Mg/2 Ml Sdv IV 01/03/20 18:00 Q4HP PRN NAUSEA Pantoprazole Sodium 20 mg 12/04/19 08:30 12/05/19 05:[address] Tablet PO 01/03/20 08:29 20 mg Q6AM KISHOR Administration Paroxetine HCl 20 mg 12/04/19 10:00 12/05/19 09:26 Paxil 20 Mg Tablet PO 01/03/20 09:59 20 mg DAILY KISHOR Administration Sodium Bicarbonate 1,300 mg 12/05/19 14:00 12/05/19 13:31 Sodium Bicarbonate 650 Mg Tablet PO 01/04/20 13:59 1,300 mg Q12 KISHOR Administration Sodium Chloride 2.5 ml 12/03/19 06:00 12/05/19 13:09 Saline Flush 2.5 Ml Monoject Prefil Syrin IV 01/02/20 05:59 Not Given Q8 KISHOR Discontinued Medications Generic Name Dose Route Start Last Admin Trade Name Freq PRN Reason Stop Dose Admin Furosemide 20 mg 12/04/19 08:39 12/04/19 16:01 Lasix Inj/Pf 20 Mg/2 Ml Sdv IV 12/04/19 23:59 20 mg .AFTER 1ST UNIT PRN Administration THIS MED IS NOT "PRN" Hydromorphone HCl 0.5 mg 12/02/19 22:12 12/02/19 23:09 Dilaudid Inj/Pf 2 Mg/Ml Ampule IV 12/02/19 22:13 0.5 mg NOW ONE Administration Hydromorphone HCl 0.5 mg 12/03/19 00:12 12/03/19 00:18 Dilaudid Inj/Pf 2 Mg/Ml Ampule IV 12/03/19 00:13 0.5 mg NOW ONE Administration Sodium Chloride 2,675 mls @ 0 mls/hr 12/02/19 20:02 12/03/19 01:06 Nacl 0.9% 1000 Ml Iv Soln IV 01/01/20 20:01 Infused CONTINUOUS PRN Infusion THIS MED IS NOT "PRN" Wide Open Sodium Chloride 1,000 mls @ 100 mls/hr 12/03/19 02:23 12/04/19 04:08 Nacl 0.9% 1000 Ml Iv Soln IV 01/02/20 02:22 100 mls/hr CONTINUOUS PRN Administration THIS MED IS NOT "PRN" Sodium Chloride 1,000 mls @ 150 mls/hr 12/03/19 02:34 12/03/19 12:00 Nacl 0.9% 1000 Ml Iv Soln IV 01/02/20 02:33 Infused CONTINUOUS PRN Infusion THIS MED IS NOT "PRN" Pantoprazole Sodium 20 mg 12/04/19 10:[address] Tablet PO 01/03/20 09:59 DAILY KISHOR Patiromer 8.4 gm 12/03/19 17:00 [place] 8.4 Gm Susp Packet PO 01/02/20 16:59 WSUPPER KISHOR Patiromer 8.4 gm 12/03/19 14:30 12/03/19 17:06 [place] 8.4 Gm Susp Packet PO 12/03/19 14:31 8.4 gm NOW ONE Administration Piperacillin Sod/Tazobactam Sod Confirm 12/02/19 21:13 12/02/19 21:23 Zosyn Inj 4.5 Gm Vial Administered 12/02/19 21:14 Not Given Dose 4.5 gm IV .STK-MED ONE Piperacillin Sod/Tazobactam Sod Confirm 12/03/19 05:06 12/03/19 05:20 Zosyn Inj 4.5 Gm Vial Administered 12/03/19 05:07 Not Given Dose 4.5 gm IV .STK-MED ONE Family History Family History: Other - Mother-Pacemaker Parental Family History Reviewed: Yes Children Family History Reviewed: Yes Sibling(s) Family History Reviewed.: Yes Medication/Allergy Home Medications: Lisinopril/Hydrochlorothiazide [Zestoretic 20-12.5 mg Tablet] 1 tab PO DAILY 09/07/11 Fluticasone Propionate [Flonase Nasal [place] 50 Mcg/[place] 16 gm] 2 spray NASL DAILY PRN 08/29/14 Metformin HCl [Glucophage 500 mg Tablet] 500 mg PO DAILY 08/29/14 Atorvastatin Calcium 40 mg PO DAILY 04/17/16 Rivaroxaban [Xarelto] 20 mg PO DAILY 04/17/16 Allergies/Adverse Reactions: Tetanus Vaccines and Toxoid [Tetanus] Allergy (Severe, Verified 04/17/16 09:19) reaction in Review of Systems Constitutional: PRESENT: night sweats. ABSENT: chills, fever(s), headache(s), weight gain, weight loss Eyes: ABSENT: visual disturbances Ears: ABSENT: hearing changes Cardiovascular: ABSENT: chest pain, dyspnea on exertion, edema, orthropnea, palpitations Respiratory: ABSENT: cough, hemoptysis Gastrointestinal: ABSENT: abdominal pain, constipation, diarrhea, hematemesis, hematochezia, nausea, vomiting Genitourinary: ABSENT: dysuria, hematuria Musculoskeletal: ABSENT: joint swelling Integumentary: ABSENT: rash, wounds Neurological: ABSENT: abnormal gait, abnormal speech, confusion, dizziness, focal weakness, syncope Psychiatric: ABSENT: anxiety, depression, homidical ideation, suicidal ideation Endocrine: ABSENT: cold intolerance, heat intolerance, menstrual abnormalities, polydipsia, polyuria Hematologic/Lymphatic: ABSENT: easy bleeding, easy bruising, lymphadenopathy. PHYSICAL EXAMINATION: The patient is well-built. Appears to be well-nourished in no acute distress. Selected Entries 12/05/19 13:15 Temperature 97.7 F Temperature Oral Source Pulse Rate 93 Respiratory 17 Rate Blood Pressure 145/75 H Blood Pressure 98 Mean BP Location Right Arm BP Position Sitting O2 Sat by Pulse 97 Oximetry Oxygen Delivery Room Air Method HEAD: Is atraumatic normocephalic. EYES: Pupils equal round regular reactive light accommodation. There is no conjunctival pallor there is no scleral icterus. EARS: Tympanic membranes are intact. External auditory canals are clear. NOSE: There is no deviated nasal septum. There is no inflammation of the nasal mucous membrane. MOUTH: Mucous membranes of mouth are moist. Tongue is moist. There is no ulcers. There is no bleeding from the gums. THROAT: There is no redness of the oropharynx. There is no exudates. SKIN: There is no secondary lesions. There is no skin rashes. There is no petechia or ecchymosis. NECK: Is supple. There is no JVD carotids are equal there is no bruit there is no lymphadenopathy. There is no goiter. There is no accessory muscle respiration use trachea central. LUNGS: Is clear to auscultation and percussion without any rhonchi rales or wheezing. There is no chest wall tenderness. HEART: S1-S2 is heard there is no S3 gallop. There is no S4 gallop. There is systolic murmur? Mitral regurg. There is no aortic stenosis murmur. There is no S3 or S4 gallop. There is no rub. ABDOMEN: Soft. Nontender. There is no hepatosplenomegaly. There is a colostomy bag on left left mid quadrant of the abdomen. Bowel sounds well heard. EXTREMITIES: Femorals are well felt. There is no femoral bruits. Leg pulses are well felt. There is no pedal edema. There is no DVT or cellulitis present. There is no cyanosis or clubbing. TRACKMAN: At present the patient is conscious awake alert oriented x3 with no focal deficits. PSYCHIATRIC: Patient judgment insight are intact his affect is normal. Patient's initial EKG shows a wide complex tachycardia secondary to sinus tachycardia with RBBB and LAFB versus multifocal atrial tachycardia with right bundle branch block pattern and left anterior fascicle block. The patient subsequent EKG shows sinus rhythm with frequent APCs versus aortic atrial mechanism/wandering atrial pacemaker. Head CT 12/02/19 19:34 IMPRESSION: 1. No acute intracranial abnormalities. Nonspecific white matter change most likely small vessel ischemic disease, age indeterminate. 2. CT is insensitive for early evaluation of acute stroke. If there is clinical concern for acute ischemia, an MRI may be considered. Chest X-Ray 12/02/19 19:35 IMPRESSION: No evidence of acute cardiopulmonary disease. Abdomen/Pelvis CT 12/02/19 20:06 IMPRESSION: Right renal soft tissue mass is suspected, newly developed from prior CT abdomen dated 06/19/2019. Correlate clinically. Previously noted right hydronephrosis has resolved recommend follow-up renal ultrasound for further evaluation and follow-up CT with IV contrast with functioning IV. Chest X-Ray 12/04/19 00:00 IMPRESSION: NO ACUTE RADIOGRAPHIC FINDING IN THE CHEST. Renal Ultrasound 12/04/19 00:00 IMPRESSION: Solid-appearing mass arising off the upper to mid pole the right kidney. This could represent infectious or inflammatory process. Neoplasm cannot be excluded. Mild dilatation of the right collecting system. Labs- Entire Visit 12/02/19 12/02/19 12/02/19 20:10 20:10 20:10 WBC 24.0 H RBC 3.50 L Hgb 9.2 L Hct 28.9 L MCV 83 MCH 26.2 L MCHC 31.7 L RDW 19.0 H Plt Count 551 H Lymph % (Auto) Not Reportable [place] % (Auto) Not Reportable Eos % (Auto) Not Reportable Baso % (Auto) Not Reportable Reticulocyte # Absolute Neuts (auto) Not Reportable Absolute Lymphs (auto) Not Reportable Absolute Monos (auto) Not Reportable Absolute Eos (auto) Not Reportable Absolute Basos (auto) Not Reportable Total Counted 100 Seg Neutrophils % Not Reportable Seg Neuts % (Manual) 87 H Band Neutrophils % 2 L Lymphocytes % (Manual) 7 L Monocytes % (Manual) 3 Eosinophils % (Manual) 1 Basophils % (Manual) 0 Abs Neuts (Manual) 21.4 H Abs Lymphs (Manual) 1.7 Abs Monocytes (Manual) 0.7 Absolute Eos (Manual) 0.2 Abs Basophils (Manual) 0.0 Toxic Granulation Clumped Platelets Platelet Comment ADEQUATE Polychromasia 1+ Hypochromasia 1+ Poikilocytosis Anisocytosis 1+ Microcytosis Ovalocytes [place] Cells RBC Morph Comment Retic Count (auto) PT 15.9 H INR 1.25 Carbonic Acid HCO3/H2CO3 Ratio ABG pH ABG pCO2 ABG pO2 ABG HCO3 ABG Total CO2 ABG O2 Saturation ABG Base Excess VBG pH VBG pCO2 VBG HCO3 VBG Base Excess FiO2 Sodium 127.5 L Potassium 5.8 H Chloride 97 L Carbon Dioxide 16 L Anion Gap 15 BUN 25 H Creatinine 1.60 H Est GFR ( Amer) 50 L Est GFR (Non-Af Amer) Est GFR (MDRD) Non-Af 41 L Glucose 99 Lactic Acid Calcium 8.9 Magnesium Iron TIBC Iron Saturation Ferritin Total Bilirubin 1.2 Direct Bilirubin 0.4 Neonat Total Bilirubin Not Reportable Neonat Direct Bilirubin Not Reportable Neonat Indirect Bili Not Reportable AST 44 ALT 36 Alkaline Phosphatase 312 H Creatine Kinase CK-MB (CK-2) Troponin I Total Protein 6.4 Albumin 3.0 L EGFR Vitamin B12 Folate Urine Color Urine Appearance Urine pH Ur Specific [place] Urine Protein Urine Glucose (UA) Urine Ketones Urine Blood Urine Nitrite (Reflex) Urine Bilirubin Urine Urobilinogen Leukocyte Esterase Rfl Urine RBC (Auto) U Hyaline Cast (Auto) Urine Bacteria (Auto) Urine WBC (Reflex) U Non-Squamous Epis Auto Urine Yeast (Budding) Urine Ascorbic Acid Blood Type Blood Type Confirm Antibody Screen Crossmatch 12/02/19 12/02/19 12/02/19 20:10 20:59 20:59 WBC RBC Hgb Hct MCV MCH MCHC RDW Plt Count Lymph % (Auto) [place] % (Auto) Eos % (Auto) Baso % (Auto) Reticulocyte # Absolute Neuts (auto) Absolute Lymphs (auto) Absolute Monos (auto) Absolute Eos (auto) Absolute Basos (auto) Total Counted Seg Neutrophils % Seg Neuts % (Manual) Band Neutrophils % Lymphocytes % (Manual) Monocytes % (Manual) Eosinophils % (Manual) Basophils % (Manual) Abs Neuts (Manual) Abs Lymphs (Manual) Abs Monocytes (Manual) Absolute Eos (Manual) Abs Basophils (Manual) Toxic Granulation Clumped Platelets Platelet Comment Polychromasia Hypochromasia Poikilocytosis Anisocytosis Microcytosis Ovalocytes [place] Cells RBC Morph Comment Retic Count (auto) PT INR Carbonic Acid HCO3/H2CO3 Ratio ABG pH ABG pCO2 ABG pO2 ABG HCO3 ABG Total CO2 ABG O2 Saturation ABG Base Excess VBG pH 7.64 H VBG pCO2 18.3 L* VBG HCO3 19.3 L VBG Base Excess 0.1 FiO2 Sodium Potassium Chloride Carbon Dioxide Anion Gap BUN Creatinine Est GFR ( Amer) Est GFR (Non-Af Amer) Est GFR (MDRD) Non-Af Glucose Lactic Acid Calcium Magnesium Iron TIBC Iron Saturation Ferritin Total Bilirubin Direct Bilirubin Neonat Total Bilirubin Neonat Direct Bilirubin Neonat Indirect Bili AST ALT Alkaline Phosphatase Creatine Kinase CK-MB (CK-2) Troponin I 0.037 Total Protein Albumin EGFR Vitamin B12 Folate Urine Color YELLOW Urine Appearance CLOUDY Urine pH 8.0 Ur Specific [place] 1.015 Urine Protein 100 H Urine Glucose (UA) NEGATIVE Urine Ketones NEGATIVE Urine Blood LARGE H Urine Nitrite (Reflex) NEGATIVE Urine Bilirubin NEGATIVE Urine Urobilinogen NEGATIVE Leukocyte Esterase Rfl LARGE H Urine RBC (Auto) >182 U Hyaline Cast (Auto) 6 Urine Bacteria (Auto) TRACE Urine WBC (Reflex) > 182 U Non-Squamous Epis Auto 1 Urine Yeast (Budding) PRESENT Urine Ascorbic Acid NEGATIVE Blood Type Blood Type Confirm Antibody Screen Crossmatch 12/02/19 12/03/19 12/03/19 20:59 00:47 02:58 WBC RBC Hgb Hct MCV MCH MCHC RDW Plt Count Lymph % (Auto) [place] % (Auto) Eos % (Auto) Baso % (Auto) Reticulocyte # Absolute Neuts (auto) Absolute Lymphs (auto) Absolute Monos (auto) Absolute Eos (auto) Absolute Basos (auto) Total Counted Seg Neutrophils % Seg Neuts % (Manual) Band Neutrophils % Lymphocytes % (Manual) Monocytes % (Manual) Eosinophils % (Manual) Basophils % (Manual) Abs Neuts (Manual) Abs Lymphs (Manual) Abs Monocytes (Manual) Absolute Eos (Manual) Abs Basophils (Manual) Toxic Granulation Clumped Platelets Platelet Comment Polychromasia Hypochromasia Poikilocytosis Anisocytosis Microcytosis Ovalocytes [place] Cells RBC Morph Comment Retic Count (auto) PT INR Carbonic Acid HCO3/H2CO3 Ratio ABG pH ABG pCO2 ABG pO2 ABG HCO3 ABG Total CO2 ABG O2 Saturation ABG Base Excess VBG pH VBG pCO2 VBG HCO3 VBG Base Excess FiO2 Sodium Potassium Chloride Carbon Dioxide Anion Gap BUN Creatinine Est GFR ( Amer) Est GFR (Non-Af Amer) Est GFR (MDRD) Non-Af Glucose Lactic Acid 3.4 H 2.3 H 1.3 Calcium Magnesium Iron TIBC Iron Saturation Ferritin Total Bilirubin Direct Bilirubin Neonat Total Bilirubin Neonat Direct Bilirubin Neonat Indirect Bili AST ALT Alkaline Phosphatase Creatine Kinase CK-MB (CK-2) Troponin I Total Protein Albumin EGFR Vitamin B12 Folate Urine Color Urine Appearance Urine pH Ur Specific [place] Urine Protein Urine Glucose (UA) Urine Ketones Urine Blood Urine Nitrite (Reflex) Urine Bilirubin Urine Urobilinogen Leukocyte Esterase Rfl Urine RBC (Auto) U Hyaline Cast (Auto) Urine Bacteria (Auto) Urine WBC (Reflex) U Non-Squamous Epis Auto Urine Yeast (Budding) Urine Ascorbic Acid Blood Type Blood Type Confirm Antibody Screen Crossmatch 12/03/19 12/03/19 12/03/19 03:30 05:18 09:10 WBC RBC Hgb Hct MCV MCH MCHC RDW Plt Count Lymph % (Auto) [place] % (Auto) Eos % (Auto) Baso % (Auto) Reticulocyte # Absolute Neuts (auto) Absolute Lymphs (auto) Absolute Monos (auto) Absolute Eos (auto) Absolute Basos (auto) Total Counted Seg Neutrophils % Seg Neuts % (Manual) Band Neutrophils % Lymphocytes % (Manual) Monocytes % (Manual) Eosinophils % (Manual) Basophils % (Manual) Abs Neuts (Manual) Abs Lymphs (Manual) Abs Monocytes (Manual) Absolute Eos (Manual) Abs Basophils (Manual) Toxic Granulation Clumped Platelets Platelet Comment Polychromasia Hypochromasia Poikilocytosis Anisocytosis Microcytosis Ovalocytes [place] Cells RBC Morph Comment Retic Count (auto) PT INR Carbonic Acid 0.53 L HCO3/H2CO3 Ratio 30:1 ABG pH 7.59 H ABG pCO2 17.7 L* ABG pO2 112.0 H ABG HCO3 16.4 L ABG Total CO2 17.0 L ABG O2 Saturation 98.8 H ABG Base Excess -4.4 VBG pH VBG pCO2 VBG HCO3 VBG Base Excess FiO2 28% Sodium Potassium Chloride Carbon Dioxide Anion Gap BUN Creatinine Est GFR ( Amer) Est GFR (Non-Af Amer) Est GFR (MDRD) Non-Af Glucose Lactic Acid 1.0 1.3 Calcium Magnesium Iron TIBC Iron Saturation Ferritin Total Bilirubin Direct Bilirubin Neonat Total Bilirubin Neonat Direct Bilirubin Neonat Indirect Bili AST ALT Alkaline Phosphatase Creatine Kinase CK-MB (CK-2) Troponin I Total Protein Albumin EGFR Vitamin B12 Folate Urine Color Urine Appearance Urine pH Ur Specific [place] Urine Protein Urine Glucose (UA) Urine Ketones Urine Blood Urine Nitrite (Reflex) Urine Bilirubin Urine Urobilinogen Leukocyte Esterase Rfl Urine RBC (Auto) U Hyaline Cast (Auto) Urine Bacteria (Auto) Urine WBC (Reflex) U Non-Squamous Epis Auto Urine Yeast (Budding) Urine Ascorbic Acid Blood Type Blood Type Confirm Antibody Screen Crossmatch 12/03/19 12/03/19 12/03/19 09:10 09:10 16:15 WBC 12.0 H RBC 2.85 L Hgb 7.3 L Hct 22.8 L MCV 80 MCH 25.5 L MCHC 31.8 L RDW 19.2 H Plt Count 413 Lymph % (Auto) Not Reportable [place] % (Auto) Not Reportable Eos % (Auto) Not Reportable Baso % (Auto) Not Reportable Reticulocyte # Absolute Neuts (auto) Not Reportable Absolute Lymphs (auto) Not Reportable Absolute Monos (auto) Not Reportable Absolute Eos (auto) Not Reportable Absolute Basos (auto) Not Reportable Total Counted 100 Seg Neutrophils % Not Reportable Seg Neuts % (Manual) 87 H Band Neutrophils % Lymphocytes % (Manual) 1 L Monocytes % (Manual) 12 Eosinophils % (Manual) 0 Basophils % (Manual) 0 Abs Neuts (Manual) 10.4 H Abs Lymphs (Manual) 0.1 L Abs Monocytes (Manual) 1.4 Absolute Eos (Manual) 0.0 Abs Basophils (Manual) 0.0 Toxic Granulation Clumped Platelets Platelet Comment ADEQUATE Polychromasia Hypochromasia SLIGHT Poikilocytosis Anisocytosis 2+ Microcytosis SLIGHT Ovalocytes 1+ [place] Cells RBC Morph Comment Retic Count (auto) PT INR Carbonic Acid HCO3/H2CO3 Ratio ABG pH ABG pCO2 ABG pO2 ABG HCO3 ABG Total CO2 ABG O2 Saturation ABG Base Excess VBG pH VBG pCO2 VBG HCO3 VBG Base Excess FiO2 Sodium 129.6 L Cancelled Potassium 5.6 H Cancelled Chloride 105 Cancelled Carbon Dioxide 18 L Cancelled Anion Gap 7 Cancelled BUN 26 H Cancelled Creatinine 1.62 H Cancelled Est GFR ( Amer) 49 L Cancelled Est GFR (Non-Af Amer) Cancelled Est GFR (MDRD) Non-Af 41 L Cancelled Glucose 88 Cancelled Lactic Acid Calcium 7.8 L Cancelled Magnesium Iron TIBC Iron Saturation Ferritin Total Bilirubin Cancelled Direct Bilirubin Cancelled Neonat Total Bilirubin Cancelled Neonat Direct Bilirubin Cancelled Neonat Indirect Bili Cancelled AST Cancelled ALT Cancelled Alkaline Phosphatase Cancelled Creatine Kinase CK-MB (CK-2) Troponin I Total Protein Cancelled Albumin Cancelled EGFR Cancelled Vitamin B12 Folate Urine Color Urine Appearance Urine pH Ur Specific [place] Urine Protein Urine Glucose (UA) Urine Ketones Urine Blood Urine Nitrite (Reflex) Urine Bilirubin Urine Urobilinogen Leukocyte Esterase Rfl Urine RBC (Auto) U Hyaline Cast (Auto) Urine Bacteria (Auto) Urine WBC (Reflex) U Non-Squamous Epis Auto Urine Yeast (Budding) Urine Ascorbic Acid Blood Type Blood Type Confirm Antibody Screen Crossmatch 12/03/19 12/04/19 12/04/19 18:11 05:22 05:22 WBC 12.1 H RBC 2.64 L Hgb 6.7 L Hct 21.4 L MCV 81 MCH 25.4 L MCHC 31.3 L RDW 19.3 H Plt Count 400 Lymph % (Auto) Not Reportable [place] % (Auto) Not Reportable Eos % (Auto) Not Reportable Baso % (Auto) Not Reportable Reticulocyte # Absolute Neuts (auto) Not Reportable Absolute Lymphs (auto) Not Reportable Absolute Monos (auto) Not Reportable Absolute Eos (auto) Not Reportable Absolute Basos (auto) Not Reportable Total Counted 100 Seg Neutrophils % Not Reportable Seg Neuts % (Manual) 92 H Band Neutrophils % Lymphocytes % (Manual) 1 L Monocytes % (Manual) 7 Eosinophils % (Manual) 0 Basophils % (Manual) 0 Abs Neuts (Manual) 11.1 H Abs Lymphs (Manual) 0.1 L Abs Monocytes (Manual) 0.8 Absolute Eos (Manual) 0.0 Abs Basophils (Manual) 0.0 Toxic Granulation SLIGHT Clumped Platelets Platelet Comment ADEQUATE Polychromasia Hypochromasia Poikilocytosis 1+ Anisocytosis 1+ Microcytosis Ovalocytes 1+ [place] Cells SLIGHT RBC Morph Comment Retic Count (auto) PT 17.2 H INR 1.39 Carbonic Acid HCO3/H2CO3 Ratio ABG pH ABG pCO2 ABG pO2 ABG HCO3 ABG Total CO2 ABG O2 Saturation ABG Base Excess VBG pH VBG pCO2 VBG HCO3 VBG Base Excess FiO2 Sodium 127.8 L Potassium 4.7 Chloride 103 Carbon Dioxide 18 L Anion Gap 7 BUN 26 H Creatinine 1.52 H Est GFR ( Amer) 53 L Est GFR (Non-Af Amer) Est GFR (MDRD) Non-Af 44 L Glucose 123 H Lactic Acid Calcium 7.5 L Magnesium Iron TIBC Iron Saturation Ferritin Total Bilirubin 0.6 Direct Bilirubin 0.1 Neonat Total Bilirubin Not Reportable Neonat Direct Bilirubin Not Reportable Neonat Indirect Bili Not Reportable AST 28 ALT 20 Alkaline Phosphatase 183 H Creatine Kinase CK-MB (CK-2) Troponin I Total Protein 4.7 L Albumin 2.0 L EGFR Vitamin B12 Folate Urine Color Urine Appearance Urine pH Ur Specific [place] Urine Protein Urine Glucose (UA) Urine Ketones Urine Blood Urine Nitrite (Reflex) Urine Bilirubin Urine Urobilinogen Leukocyte Esterase Rfl Urine RBC (Auto) U Hyaline Cast (Auto) Urine Bacteria (Auto) Urine WBC (Reflex) U Non-Squamous Epis Auto Urine Yeast (Budding) Urine Ascorbic Acid Blood Type Blood Type Confirm Antibody Screen Crossmatch 12/04/19 12/04/19 12/04/19 05:22 05:22 05:22 WBC RBC Hgb Hct MCV MCH MCHC RDW Plt Count Lymph % (Auto) [place] % (Auto) Eos % (Auto) Baso % (Auto) Reticulocyte # 0.042 Absolute Neuts (auto) Absolute Lymphs (auto) Absolute Monos (auto) Absolute Eos (auto) Absolute Basos (auto) Total Counted Seg Neutrophils % Seg Neuts % (Manual) Band Neutrophils % Lymphocytes % (Manual) Monocytes % (Manual) Eosinophils % (Manual) Basophils % (Manual) Abs Neuts (Manual) Abs Lymphs (Manual) Abs Monocytes (Manual) Absolute Eos (Manual) Abs Basophils (Manual) Toxic Granulation Clumped Platelets Platelet Comment Polychromasia Hypochromasia Poikilocytosis Anisocytosis Microcytosis Ovalocytes [place] Cells RBC Morph Comment Retic Count (auto) 1.61 PT INR Carbonic Acid HCO3/H2CO3 Ratio ABG pH ABG pCO2 ABG pO2 ABG HCO3 ABG Total CO2 ABG O2 Saturation ABG Base Excess VBG pH VBG pCO2 VBG HCO3 VBG Base Excess FiO2 Sodium 130.2 L Potassium 5.1 H Chloride 104 Carbon Dioxide 19 L Anion Gap 7 BUN 24 H Creatinine 1.49 H Est GFR ( Amer) 54 L Est GFR (Non-Af Amer) Est GFR (MDRD) Non-Af 45 L Glucose 96 Lactic Acid Calcium 7.7 L Magnesium Iron < 10.1 L TIBC 126 L Iron Saturation UNABLE TO CALCULATE Ferritin 845.00 H Total Bilirubin 0.6 Direct Bilirubin 0.2 Neonat Total Bilirubin Not Reportable Neonat Direct Bilirubin Not Reportable Neonat Indirect Bili Not Reportable AST 30 ALT 21 Alkaline Phosphatase 184 H Creatine Kinase CK-MB (CK-2) Troponin I Total Protein 4.7 L Albumin 2.0 L EGFR Vitamin B12 > 1000.0 H Folate 6.01 Urine Color Urine Appearance Urine pH Ur Specific [place] Urine Protein Urine Glucose (UA) Urine Ketones Urine Blood Urine Nitrite (Reflex) Urine Bilirubin Urine Urobilinogen Leukocyte Esterase Rfl Urine RBC (Auto) U Hyaline Cast (Auto) Urine Bacteria (Auto) Urine WBC (Reflex) U Non-Squamous Epis Auto Urine Yeast (Budding) Urine Ascorbic Acid Blood Type Blood Type Confirm Antibody Screen Crossmatch 12/04/19 12/04/19 12/04/19 08:28 08:34 19:05 WBC RBC Hgb Hct MCV MCH MCHC RDW Plt Count Lymph % (Auto) [place] % (Auto) Eos % (Auto) Baso % (Auto) Reticulocyte # Absolute Neuts (auto) Absolute Lymphs (auto) Absolute Monos (auto) Absolute Eos (auto) Absolute Basos (auto) Total Counted Seg Neutrophils % Seg Neuts % (Manual) Band Neutrophils % Lymphocytes % (Manual) Monocytes % (Manual) Eosinophils % (Manual) Basophils % (Manual) Abs Neuts (Manual) Abs Lymphs (Manual) Abs Monocytes (Manual) Absolute Eos (Manual) Abs Basophils (Manual) Toxic Granulation Clumped Platelets Platelet Comment Polychromasia Hypochromasia Poikilocytosis Anisocytosis Microcytosis Ovalocytes [place] Cells RBC Morph Comment Retic Count (auto) PT INR Carbonic Acid HCO3/H2CO3 Ratio ABG pH ABG pCO2 ABG pO2 ABG HCO3 ABG Total CO2 ABG O2 Saturation ABG Base Excess VBG pH VBG pCO2 VBG HCO3 VBG Base Excess FiO2 Sodium 129.0 L Potassium 4.7 Chloride 106 Carbon Dioxide 16 L Anion Gap 7 BUN 22 H Creatinine 1.44 H Est GFR ( Amer) 57 L Est GFR (Non-Af Amer) Est GFR (MDRD) Non-Af 47 L Glucose 102 Lactic Acid Calcium 7.7 L Magnesium 2.2 Iron TIBC Iron Saturation Ferritin Total Bilirubin 1.5 H Direct Bilirubin 0.6 H Neonat Total Bilirubin Not Reportable Neonat Direct Bilirubin Not Reportable Neonat Indirect Bili Not Reportable AST 31 ALT 20 Alkaline Phosphatase 192 H Creatine Kinase 48 L CK-MB (CK-2) Troponin I Total Protein 4.9 L Albumin 2.1 L EGFR Vitamin B12 Folate Urine Color Urine Appearance Urine pH Ur Specific [place] Urine Protein Urine Glucose (UA) Urine Ketones Urine Blood Urine Nitrite (Reflex) Urine Bilirubin Urine Urobilinogen Leukocyte Esterase Rfl Urine RBC (Auto) U Hyaline Cast (Auto) Urine Bacteria (Auto) Urine WBC (Reflex) U Non-Squamous Epis Auto Urine Yeast (Budding) Urine Ascorbic Acid Blood Type A NEGATIVE Blood Type Confirm A NEGATIVE Antibody Screen NEGATIVE Crossmatch See Detail 12/04/19 12/04/19 12/05/19 19:05 22:17 00:46 WBC 14.4 H RBC 3.40 L Hgb 9.1 L D Hct 27.8 L MCV 82 MCH 26.7 L MCHC 32.6 RDW 18.0 H Plt Count 387 Lymph % (Auto) Not Reportable [place] % (Auto) Not Reportable Eos % (Auto) Not Reportable Baso % (Auto) Not Reportable Reticulocyte # Absolute Neuts (auto) Not Reportable Absolute Lymphs (auto) Not Reportable Absolute Monos (auto) Not Reportable Absolute Eos (auto) Not Reportable Absolute Basos (auto) Not Reportable Total Counted 100 Seg Neutrophils % Not Reportable Seg Neuts % (Manual) 96 H Band Neutrophils % Lymphocytes % (Manual) 1 L Monocytes % (Manual) 2 L Eosinophils % (Manual) 1 Basophils % (Manual) 0 Abs Neuts (Manual) 13.8 H Abs Lymphs (Manual) 0.1 L Abs Monocytes (Manual) 0.3 Absolute Eos (Manual) 0.1 Abs Basophils (Manual) 0.0 Toxic Granulation SLIGHT Clumped Platelets Platelet Comment ADEQUATE Polychromasia SLIGHT Hypochromasia Poikilocytosis SLIGHT Anisocytosis 1+ Microcytosis Ovalocytes SLIGHT [place] Cells 1+ RBC Morph Comment Retic Count (auto) PT INR Carbonic Acid HCO3/H2CO3 Ratio ABG pH ABG pCO2 ABG pO2 ABG HCO3 ABG Total CO2 ABG O2 Saturation ABG Base Excess VBG pH VBG pCO2 VBG HCO3 VBG Base Excess FiO2 Sodium Potassium Chloride Carbon Dioxide Anion Gap BUN Creatinine Est GFR ( Amer) Est GFR (Non-Af Amer) Est GFR (MDRD) Non-Af Glucose Lactic Acid Calcium Magnesium Iron TIBC Iron Saturation Ferritin Total Bilirubin Direct Bilirubin Neonat Total Bilirubin Neonat Direct Bilirubin Neonat Indirect Bili AST ALT Alkaline Phosphatase Creatine Kinase 38 L CK-MB (CK-2) 1.28 Troponin I 0.032 Total Protein Albumin EGFR Vitamin B12 Folate Urine Color Urine Appearance Urine pH Ur Specific [place] Urine Protein Urine Glucose (UA) Urine Ketones Urine Blood Urine Nitrite (Reflex) Urine Bilirubin Urine Urobilinogen Leukocyte Esterase Rfl Urine RBC (Auto) U Hyaline Cast (Auto) Urine Bacteria (Auto) Urine WBC (Reflex) U Non-Squamous Epis Auto Urine Yeast (Budding) Urine Ascorbic Acid Blood Type Blood Type Confirm Antibody Screen Crossmatch 12/05/19 12/05/19 12/05/19 00:46 07:44 07:44 WBC 16.4 H RBC 3.46 L Hgb 9.4 L Hct 28.9 L MCV 84 MCH 27.0 MCHC 32.3 RDW 17.5 H Plt Count 391 Lymph % (Auto) Not Reportable [place] % (Auto) Not Reportable Eos % (Auto) Not Reportable Baso % (Auto) Not Reportable Reticulocyte # Absolute Neuts (auto) Not Reportable Absolute Lymphs (auto) Not Reportable Absolute Monos (auto) Not Reportable Absolute Eos (auto) Not Reportable Absolute Basos (auto) Not Reportable Total Counted 100 Seg Neutrophils % Not Reportable Seg Neuts % (Manual) 92 H Band Neutrophils % Lymphocytes % (Manual) 2 L Monocytes % (Manual) 6 Eosinophils % (Manual) 0 Basophils % (Manual) 0 Abs Neuts (Manual) 15.1 H Abs Lymphs (Manual) 0.3 L Abs Monocytes (Manual) 1.0 Absolute Eos (Manual) 0.0 Abs Basophils (Manual) 0.0 Toxic Granulation Clumped Platelets PRESENT Platelet Comment ADEQUATE Polychromasia SLIGHT Hypochromasia Poikilocytosis Anisocytosis 1+ Microcytosis Ovalocytes [place] Cells SLIGHT RBC Morph Comment NORMO-CYTIC/CHROMIC Retic Count (auto) PT INR Carbonic Acid HCO3/H2CO3 Ratio ABG pH ABG pCO2 ABG pO2 ABG HCO3 ABG Total CO2 ABG O2 Saturation ABG Base Excess VBG pH VBG pCO2 VBG HCO3 VBG Base Excess FiO2 Sodium 130.2 L Potassium 4.4 Chloride 105 Carbon Dioxide 14 L Anion Gap 11 BUN 20 Creatinine 1.36 H Est GFR ( Amer) > 60 Est GFR (Non-Af Amer) Est GFR (MDRD) Non-Af 50 L Glucose 78 Lactic Acid Calcium 7.6 L Magnesium Iron TIBC Iron Saturation Ferritin Total Bilirubin Direct Bilirubin Neonat Total Bilirubin Neonat Direct Bilirubin Neonat Indirect Bili AST ALT Alkaline Phosphatase Creatine Kinase 30 L CK-MB (CK-2) 1.02 Troponin I 0.042 Total Protein Albumin EGFR Vitamin B12 Folate Urine Color Urine Appearance Urine pH Ur Specific [place] Urine Protein Urine Glucose (UA) Urine Ketones Urine Blood Urine Nitrite (Reflex) Urine Bilirubin Urine Urobilinogen Leukocyte Esterase Rfl Urine RBC (Auto) U Hyaline Cast (Auto) Urine Bacteria (Auto) Urine WBC (Reflex) U Non-Squamous Epis Auto Urine Yeast (Budding) Urine Ascorbic Acid Blood Type Blood Type Confirm Antibody Screen Crossmatch 12/05/19 07:44 WBC RBC Hgb Hct MCV MCH MCHC RDW Plt Count Lymph % (Auto) [place] % (Auto) Eos % (Auto) Baso % (Auto) Reticulocyte # Absolute Neuts (auto) Absolute Lymphs (auto) Absolute Monos (auto) Absolute Eos (auto) Absolute Basos (auto) Total Counted Seg Neutrophils % Seg Neuts % (Manual) Band Neutrophils % Lymphocytes % (Manual) Monocytes % (Manual) Eosinophils % (Manual) Basophils % (Manual) Abs Neuts (Manual) Abs Lymphs (Manual) Abs Monocytes (Manual) Absolute Eos (Manual) Abs Basophils (Manual) Toxic Granulation Clumped Platelets Platelet Comment Polychromasia Hypochromasia Poikilocytosis Anisocytosis Microcytosis Ovalocytes [place] Cells RBC Morph Comment Retic Count (auto) PT INR Carbonic Acid HCO3/H2CO3 Ratio ABG pH ABG pCO2 ABG pO2 ABG HCO3 ABG Total CO2 ABG O2 Saturation ABG Base Excess VBG pH VBG pCO2 VBG HCO3 VBG Base Excess FiO2 Sodium Potassium Chloride Carbon Dioxide Anion Gap BUN Creatinine Est GFR ( Amer) Est GFR (Non-Af Amer) Est GFR (MDRD) Non-Af Glucose Lactic Acid Calcium Magnesium Iron TIBC Iron Saturation Ferritin Total Bilirubin Direct Bilirubin Neonat Total Bilirubin Neonat Direct Bilirubin Neonat Indirect Bili AST ALT Alkaline Phosphatase Creatine Kinase CK-MB (CK-2) 1.02 Troponin I 0.053 Total Protein Albumin EGFR Vitamin B12 Folate Urine Color Urine Appearance Urine pH Ur Specific [place] Urine Protein Urine Glucose (UA) Urine Ketones Urine Blood Urine Nitrite (Reflex) Urine Bilirubin Urine Urobilinogen Leukocyte Esterase Rfl Urine RBC (Auto) U Hyaline Cast (Auto) Urine Bacteria (Auto) Urine WBC (Reflex) U Non-Squamous Epis Auto Urine Yeast (Budding) Urine Ascorbic Acid Blood Type Blood Type Confirm Antibody Screen Crossmatch IMPRESSION/RECOMMENDATION: 1. Supraventricular tachycardia: Most likely multifocal atrial tachycardia. We will start the patient on Cardizem 30 mg p.o. every 8 hours and increase this tolerated. 2. Acute on chronic renal insufficiency: Renal function improved. In view of the patient's propensity for renal failure would recommend that treat the patient with a NICKY inhibitor without a diuretic. 3. Anemia: History of acute on chronic anemia: Hematology/oncology on the case. 4. Hypertension: Blood pressure well controlled. 5. Hyperlipidemia: Continue statins. 6. History of urothelial cancer: Hematology/oncology on the case. 7. Systolic murmur most likely MR? Severity. Later would recommend getting an echocardiogram. 8. CAD risk factors are namely age, hypertension and hyperlipidemia. If the patient so desires then would recommend that the patient have an outpatient Lexiscan Cardiolite stress test. Medications reviewed. Medications added. Medical regimen management plan discussed with RN provider on the case. Medical decision making is of high complexity. 60 minutes spent as patient more than 50% time spent direct patient care. Will follow
[2019-12-05] MEDS: DILTIAZEM HCL 30 MG TABLET PO SCH (21:36)
[2019-12-06] MEDS: PIPERACILLIN SODIUM/TAZOBACTAM 4.5 GM in NORMAL SALINE 100 ML IV SCH ×2 (00:54→05:54)
[2019-12-06] MEDS: NORMAL SALINE 1000 ML 1,000 ML IV PRN ×2 (00:55→14:15)
[2019-12-06 05:53] LABS: HEMATOCRIT 29.9 % (37.9-51.0); HEMOGLOBIN 9.8 g/dL (13.5-17.0); MEAN CORPUSCULAR HEMOGLOBIN 26.9 pg (27.0-33.4); MEAN CORPUSCULAR HGB CONC 32.7 g/dL (32.0-36.0); MEAN CORPUSCULAR VOLUME 83 fl (80-97); PLATELET COUNT 366 10^3/uL (150-450); RED BLOOD COUNT 3.62 10^6/uL (4.35-5.55); RED CELL DISTRIBUTION WIDTH 18.1 % (11.5-14.0); WHITE BLOOD COUNT 15.3 10^3/uL (4.0-10.5)
[2019-12-06] MEDS: HEPARIN SOD (PORCINE) 5,000 UNIT/ML 1 ML VIAL SUBCUT SCH ×3 (05:55→21:28)
[2019-12-06] MEDS: DILTIAZEM HCL 30 MG TABLET PO SCH ×3 (05:55→22:30)
[2019-12-06] MEDS: PANTOPRAZOLE SODIUM 20 MG TABLET.DR PO SCH (05:55)
[2019-12-06 06:06] LABS: ANION GAP 8 (5-19); BLOOD UREA NITROGEN 19 mg/dL (7-20); CALCIUM 7.6 mg/dL (8.4-10.2); CARBON DIOXIDE 16 mmol/L (22-30); CHLORIDE 107 mmol/L (98-107); GLUCOSE 114 mg/dL (75-110); POTASSIUM 3.8 mmol/L (3.6-5.0)
[2019-12-06 06:18] LABS: ABSOLUTE LYMPHOCYTES# (MANUAL) 0.5 10^3/uL (0.5-4.7); ABSOLUTE MONOCYTES # (MANUAL) 0.5 10^3/uL (0.1-1.4); BASOPHILS % (MANUAL) 0 % (0-2); EOSINOPHILS % (MANUAL) 1 % (0-6); LYMPHOCYTES % (MANUAL) 3 % (13-45); MONOCYTES % (MANUAL) 3 % (3-13); SEGMENTED NEUTROPHILS % (MAN) 93 % (42-78); TOTAL CELLS COUNTED 100
[2019-12-06 06:20] LABS: ANISOCYTOSIS 2+; OVALOCYTES SLIGHT; PLATELET COMMENT ADEQUATE; TEAR DROP CELLS SLIGHT; TOXIC GRANULATION SLIGHT; TOXIC VACUOLATION PRESENT
--- NOTE | 2019-12-06 09:10 | PDOC PROGRESS REPORT ---
Subjective Progress Note for:: 12/06/19 Subjective:: No acute events overnight, seems a little bit better this morning Reason For Visit: SEPSIS, ACUTE DIVERTICLITIS, NEW RENAL MASS Physical Exam Vital Signs: Temp Pulse Resp BP Pulse Ox 97.5 F 80 14 129/72 H 96 12/06/19 08:13 12/06/19 08:13 12/06/19 08:13 12/06/19 08:13 12/06/19 08:13 Intake & Output 12/05/19 12/06/19 12/07/19 06:59 06:59 06:59 Intake Total 2980 2920 Output Total 2225 1675 Balance 755 1245 Weight 85.3 kg 86.1 kg General appearance: PRESENT: no acute distress, well-developed, well-nourished Head exam: PRESENT: atraumatic, normocephalic Eye exam: PRESENT: conjunctiva pink, EOMI, PERRLA. ABSENT: scleral icterus Ear exam: PRESENT: normal external ear exam Mouth exam: PRESENT: moist, tongue midline Neck exam: ABSENT: carotid bruit, JVD, lymphadenopathy, thyromegaly Respiratory exam: PRESENT: clear to auscultation enmanuel. ABSENT: rales, rhonchi, wheezes Cardiovascular exam: PRESENT: RRR. ABSENT: diastolic murmur, rubs, systolic murmur Pulses: PRESENT: normal dorsalis pedis pul Vascular exam: PRESENT: normal capillary refill GI/Abdominal exam: PRESENT: normal bowel sounds, soft. ABSENT: distended, guarding, mass, organolmegaly, rebound, tenderness Rectal exam: PRESENT: deferred Extremities exam: PRESENT: full ROM. ABSENT: calf tenderness, clubbing, pedal edema Neurological exam: PRESENT: alert, awake, oriented to person, oriented to place, oriented to time, oriented to situation, CN II-XII grossly intact. ABSENT: motor sensory deficit Psychiatric exam: PRESENT: appropriate affect, normal mood. ABSENT: homicidal ideation, suicidal ideation Skin exam: PRESENT: dry, intact, warm. ABSENT: cyanosis, rash Results Laboratory Results: 12/06/19 05:12 12/06/19 05:12 12/05/19 12/06/19 12/06/19 07:44 05:12 05:12 WBC 16.4 H 15.3 H RBC 3.46 L 3.62 L Hgb 9.4 L 9.8 L Hct 28.9 L 29.9 L MCV 84 83 MCH 27.0 26.9 L MCHC 32.3 32.7 RDW 17.5 H 18.1 H Plt Count 391 366 Seg Neutrophils % Not Reportable Not Reportable Sodium 131.1 L Potassium 3.8 Chloride 107 Carbon Dioxide 16 L Anion Gap 8 BUN 19 Creatinine 1.23 Est GFR ( Amer) > 60 Glucose 114 H Calcium 7.6 L 12/02/19 12/04/19 12/04/19 20:59 19:05 19:05 Creatine Kinase 48 L CK-MB (CK-2) 1.28 Troponin I 0.037 0.032 12/05/19 12/05/19 12/05/19 00:46 00:46 07:44 Creatine Kinase 38 L 30 L CK-MB (CK-2) 1.02 Troponin I 0.042 12/05/19 07:44 Creatine Kinase CK-MB (CK-2) 1.02 Troponin I 0.053 Impressions: Head CT 12/02/19 19:34 IMPRESSION: 1. No acute intracranial abnormalities. Nonspecific white matter change most likely small vessel ischemic disease, age indeterminate. 2. CT is insensitive for early evaluation of acute stroke. If there is clinical concern for acute ischemia, an MRI may be considered. Abdomen/Pelvis CT 12/02/19 20:06 IMPRESSION: Right renal soft tissue mass is suspected, newly developed from prior CT abdomen dated 06/19/2019. Correlate clinically. Previously noted right hydronephrosis has resolved recommend follow-up renal ultrasound for further evaluation and follow-up CT with IV contrast with functioning IV. Chest X-Ray 12/04/19 00:00 IMPRESSION: NO ACUTE RADIOGRAPHIC FINDING IN THE CHEST. Renal Ultrasound 12/04/19 00:00 IMPRESSION: Solid-appearing mass arising off the upper to mid pole the right kidney. This could represent infectious or inflammatory process. Neoplasm cannot be excluded. Mild dilatation of the right collecting system. Assessment & Plan - Diagnosis (1) Urothelial carcinoma Is this a current diagnosis for this admission?: Yes Plan: We will plan to continue treatment as an outpatient, we have set up follow-up in 2 weeks (2) Anemia Qualifiers: Anemia type: due to chronic kidney disease Chronic kidney disease stage: stage 3 (moderate) Qualified Code(s): N18.3 - Chronic kidney disease, stage 3 (moderate); D63.1 - Anemia in chronic kidney disease Is this a current diagnosis for this admission?: Yes Plan: Hemoglobin stable posttransfusion, follow as outpatient iron levels normal B12 levels normal. - Time Time Spent with patient: 35 or more minutes
--- NOTE | 2019-12-06 09:27 | PDOC PROGRESS REPORT ---
Subjective Progress Note for:: 12/06/19 Subjective:: Patient is currently doing much better Patient's denied any chest pain no short of breath Seen by the cardiology start on a Cardizem and suggest to discontinue the NICKY inhibitor's and diuretics Patient's other than that denied any other symptoms White count is still elevated but all the cultures negative afebrile we will discontinues the IV antibiotic check stool for the culture and C. difficile Reason For Visit: SEPSIS, ACUTE DIVERTICLITIS, NEW RENAL MASS Physical Exam Vital Signs: Temp Pulse Resp BP Pulse Ox 97.5 F 80 14 129/72 H 96 12/06/19 08:13 12/06/19 08:13 12/06/19 08:13 12/06/19 08:13 12/06/19 08:13 Intake & Output 12/05/19 12/06/19 12/07/19 06:59 06:59 06:59 Intake Total 2980 2920 Output Total 2225 1675 Balance 755 1245 Weight 85.3 kg 86.1 kg General appearance: PRESENT: no acute distress, well-developed, well-nourished Head exam: PRESENT: atraumatic, normocephalic Eye exam: PRESENT: conjunctiva pink, EOMI, PERRLA. ABSENT: scleral icterus Ear exam: PRESENT: normal external ear exam Mouth exam: PRESENT: moist, tongue midline Neck exam: PRESENT: full ROM. ABSENT: carotid bruit, JVD, lymphadenopathy, thyromegaly Respiratory exam: PRESENT: clear to auscultation enmanuel Cardiovascular exam: PRESENT: RRR. ABSENT: diastolic murmur, rubs, systolic murmur Pulses: PRESENT: normal dorsalis pedis pul, +2 pedal pulses bilateral Vascular exam: PRESENT: normal capillary refill GI/Abdominal exam: PRESENT: normal bowel sounds, soft. ABSENT: distended, guarding, mass, organolmegaly, rebound, tenderness Rectal exam: PRESENT: deferred Musculoskeletal exam: PRESENT: ambulatory Neurological exam: PRESENT: alert, awake, oriented to person, oriented to place, oriented to time, oriented to situation, CN II-XII grossly intact. ABSENT: motor sensory deficit Psychiatric exam: PRESENT: appropriate affect, normal mood. ABSENT: homicidal i deation, suicidal ideation Skin exam: PRESENT: dry, intact, warm. ABSENT: cyanosis, rash Results Laboratory Results: 12/06/19 05:12 12/06/19 05:12 12/05/19 12/06/19 12/06/19 07:44 05:12 05:12 WBC 16.4 H 15.3 H RBC 3.46 L 3.62 L Hgb 9.4 L 9.8 L Hct 28.9 L 29.9 L MCV 84 83 MCH 27.0 26.9 L MCHC 32.3 32.7 RDW 17.5 H 18.1 H Plt Count 391 366 Seg Neutrophils % Not Reportable Not Reportable Sodium 131.1 L Potassium 3.8 Chloride 107 Carbon Dioxide 16 L Anion Gap 8 BUN 19 Creatinine 1.23 Est GFR ( Amer) > 60 Glucose 114 H Calcium 7.6 L 12/02/19 12/04/19 12/04/19 20:59 19:05 19:05 Creatine Kinase 48 L CK-MB (CK-2) 1.28 Troponin I 0.037 0.032 12/05/19 12/05/19 12/05/19 00:46 00:46 07:44 Creatine Kinase 38 L 30 L CK-MB (CK-2) 1.02 Troponin I 0.042 12/05/19 07:44 Creatine Kinase CK-MB (CK-2) 1.02 Troponin I 0.053 Impressions: Head CT 12/02/19 19:34 IMPRESSION: 1. No acute intracranial abnormalities. Nonspecific white matter change most likely small vessel ischemic disease, age indeterminate. 2. CT is insensitive for early evaluation of acute stroke. If there is clinical concern for acute ischemia, an MRI may be considered. Abdomen/Pelvis CT 12/02/19 20:06 IMPRESSION: Right renal soft tissue mass is suspected, newly developed from prior CT abdomen dated 06/19/2019. Correlate clinically. Previously noted right hydronephrosis has resolved recommend follow-up renal ultrasound for further evaluation and follow-up CT with IV contrast with functioning IV. Chest X-Ray 12/04/19 00:00 IMPRESSION: NO ACUTE RADIOGRAPHIC FINDING IN THE CHEST. Renal Ultrasound 12/04/19 00:00 IMPRESSION: Solid-appearing mass arising off the upper to mid pole the right kidney. This could represent infectious or inflammatory process. Neoplasm cannot be excluded. Mild dilatation of the right collecting system. Assessment & Plan - Diagnosis (1) Acute kidney injury Is this a current diagnosis for this admission?: Yes Plan: Currently all resolved (2) Anemia Qualifiers: Anemia type: due to chronic kidney disease Chronic kidney disease stage: stage 3 (moderate) Qualified Code(s): N18.3 - Chronic kidney disease, stage 3 (moderate); D63.1 - Anemia in chronic kidney disease Is this a current diagnosis for this admission?: Yes (3) Hyponatremia Is this a current diagnosis for this admission?: Yes Plan: Currently all improving (4) Metabolic encephalopathy Is this a current diagnosis for this admission?: Yes Plan: Currently all resolved (5) Right renal mass Is this a current diagnosis for this admission?: Yes (6) Sepsis Qualifiers: Sepsis type: sepsis due to unspecified organism Sepsis acute organ dysfunction status: with acute organ dysfunction Severe sepsis acute organ dysfunction type: encephalopathy Severe sepsis shock status: without septic shock Qualified Code(s): A41.9 - Sepsis, unspecified organism; R65.20 - Severe sepsis without septic shock; G93.40 - Encephalopathy, unspecified Is this a current diagnosis for this admission?: Yes (7) Urothelial carcinoma Is this a current diagnosis for this admission?: Yes (8) Abdominal pain Qualifiers: Abdominal location: unspecified location Qualified Code(s): R10.9 - Unspecified abdominal pain Is this a current diagnosis for this admission?: Yes - Time Time Spent with patient: 25-34 minutes Level of Care: IMCU Medications reviewed and adjusted accordingly: Yes Anticipated discharge: Home with Homehealth Anticipated DC Timeframe: within 72 hours - Plan Summary Plan Summary: We will discontinues the IV antibiotic continues to current medications if patients remain stable hopefully discharge tomorrow
[2019-12-06] MEDS: HYDROMORPHONE HCL INJ/PF 2 MG/ML AMPULE IV PRN (12:13)
[2019-12-06] MEDS: ATORVASTATIN CALCIUM 40 MG TABLET PO SCH (12:31)
[2019-12-06] MEDS: PAROXETINE HCL 20 MG TABLET PO SCH (12:31)
[2019-12-06] MEDS: SODIUM BICARBONATE 650 MG TABLET PO SCH ×2 (12:31→22:30)
[2019-12-06 16:12] LABS: C DIFFICILE GDH NEGATIVE (NEGATIVE)
--- NOTE | 2019-12-06 22:34 | Progress Note ---
Provider Note Provider Note: CARDIOLOGY PROGRESS NOTE by Dr. Evie Rojas on 12/06/2019 OBJECTIVE: The patient as per the nurse is been very confused and at present is asleep. There is no recurrence of MAT or SVT. Monitor strip shows wandering atrial pacemaker/cavity atrial mechanism. There is no ventricular arrhythmias seen on the monitor. PHYSICAL EXAMINATION: The patient is well-built. At present asleep in no acute distress. Selected Entries 12/06/19 16:17 Temperature 97.9 F Temperature Axillary Source Pulse Rate 75 Respiratory 16 Rate Blood Pressure 140/70 H Blood Pressure 93 Mean BP Location Right Arm BP Position Supine O2 Sat by Pulse 98 Oximetry Oxygen Delivery Room Air Method HEAD: Is atraumatic normocephalic. EYES: Pupils equal round regular reactive light accommodation. There is no conjunctival pallor there is no scleral icterus. EARS: Tympanic membranes are intact. External auditory canals are clear. NOSE: There is no deviated nasal septum. There is no inflammation of the nasal mucous membrane. MOUTH: Mucous membranes of mouth are moist. Tongue is moist. There is no ulcers. There is no bleeding from the gums. THROAT: There is no redness of the oropharynx. There is no exudates. SKIN: There is no secondary lesions. There is no skin rashes. There is no petechia or ecchymosis. NECK: Is supple. There is no JVD carotids are equal there is no bruit there is no lymphadenopathy. There is no goiter. There is no accessory muscle respiration use trachea central. LUNGS: Is clear to auscultation and percussion without any rhonchi rales or wheezing. There is no chest wall tenderness. HEART: S1-S2 is heard there is no S3 gallop. There is no S4 gallop. There is systolic murmur? Mitral regurg. There is no aortic stenosis murmur. There is no S3 or S4 gallop. There is no rub. ABDOMEN: Soft. Nontender. There is no hepatosplenomegaly. There is a colostomy bag on left left mid quadrant of the abdomen. Bowel sounds well heard. EXTREMITIES: Femorals are well felt. There is no femoral bruits. Leg pulses are well felt. There is no pedal edema. There is no DVT or cellulitis present. There is no cyanosis or clubbing. 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 PSYCHIATRIC: Not tested since the patient is asleep. Head CT 12/02/19 19:34 IMPRESSION: 1. No acute intracranial abnormalities. Nonspecific white matter change most likely small vessel ischemic disease, age indeterminate. 2. CT is insensitive for early evaluation of acute stroke. If there is clinical concern for acute ischemia, an MRI may be considered. Chest X-Ray 12/02/19 19:35 IMPRESSION: No evidence of acute cardiopulmonary disease. Abdomen/Pelvis CT 12/02/19 20:06 IMPRESSION: Right renal soft tissue mass is suspected, newly developed from prior CT abdomen dated 06/19/2019. Correlate clinically. Previously noted right hydronephrosis has resolved recommend follow-up renal ultrasound for further evaluation and follow-up CT with IV contrast with functioning IV. Chest X-Ray 12/04/19 00:00 IMPRESSION: NO ACUTE RADIOGRAPHIC FINDING IN THE CHEST. Renal Ultrasound 12/04/19 00:00 IMPRESSION: Solid-appearing mass arising off the upper to mid pole the right kidney. This could represent infectious or inflammatory process. Neoplasm cannot be excluded. Mild dilatation of the right collecting system. Labs- All tests 24 hr 12/06/19 12/06/19 12/06/19 05:12 05:12 12:30 WBC 15.3 H RBC 3.62 L Hgb 9.8 L Hct 29.9 L MCV 83 MCH 26.9 L MCHC 32.7 RDW 18.1 H Plt Count 366 Lymph % (Auto) Not Reportable Waller % (Auto) Not Reportable Eos % (Auto) Not Reportable Baso % (Auto) Not Reportable Absolute Neuts (auto) Not Reportable Absolute Lymphs (auto) Not Reportable Absolute Monos (auto) Not Reportable Absolute Eos (auto) Not Reportable Absolute Basos (auto) Not Reportable Total Counted 100 Seg Neutrophils % Not Reportable Seg Neuts % (Manual) 93 H Lymphocytes % (Manual) 3 L Monocytes % (Manual) 3 Eosinophils % (Manual) 1 Basophils % (Manual) 0 Abs Neuts (Manual) 14.2 H Abs Lymphs (Manual) 0.5 Abs Monocytes (Manual) 0.5 Absolute Eos (Manual) 0.2 Abs Basophils (Manual) 0.0 Toxic Granulation SLIGHT Toxic Vacuolation PRESENT Platelet Comment ADEQUATE Anisocytosis 2+ Tear Drop Cells SLIGHT Ovalocytes SLIGHT Sodium 131.1 L Potassium 3.8 Chloride 107 Carbon Dioxide 16 L Anion Gap 8 BUN 19 Creatinine 1.23 Est GFR ( Amer) > 60 Est GFR (MDRD) Non-Af 56 L Glucose 114 H Calcium 7.6 L Stl C. Difficile GDH Ag NEGATIVE Stl C.difficile Tox A&B NEGATIVE IMPRESSION/RECOMMENDATION: 1. Supraventricular tachycardia: Most likely multifocal atrial tachycardia. We will start the patient on Cardizem 30 mg p.o. every 8 hours and increase this tolerated. 2. Acute on chronic renal insufficiency: Renal function improved. In view of the patient's propensity for renal failure would recommend that treat the patient with a NICKY inhibitor without a diuretic. 3. Anemia: History of acute on chronic anemia: Hematology/oncology on the case. 4. Confusion and altered mental status? Etiology. 5. Hypertension: Blood pressure well controlled. 6. Hyperlipidemia: Continue statins. 7. History of urothelial cancer: Hematology/oncology on the case. 8. Systolic murmur most likely MR? Severity. Later would recommend getting an echocardiogram. 9. CAD risk factors are namely age, hypertension and hyperlipidemia. If the patient so desires then would recommend that the patient have an outpatient Lexiscan Cardiolite stress test. Medications reviewed. Medications added. Medical regimen management plan discussed with RN provider on the case. Medical decision making is of moderate complexity. 40 minutes spent as patient more than 50% time spent direct patient care. Will follow
--- NOTE | 2019-12-06 23:03 | PDOC PROGRESS REPORT ---
Subjective Progress Note for:: 12/06/19 Subjective:: Patient was sleeping when I entered the room but he woke up. He denied any complaints. He is fairly stable. Urine output was 1675 mL for the last 24 hours. Reason For Visit: SEPSIS, ACUTE DIVERTICLITIS, NEW RENAL MASS Physical Exam Vital Signs: Temp Pulse Resp BP Pulse Ox 97.5 F 80 14 129/72 H 96 12/06/19 08:13 12/06/19 08:13 12/06/19 08:13 12/06/19 08:13 12/06/19 08:13 Intake & Output 12/05/19 12/06/19 12/07/19 06:59 06:59 06:59 Intake Total 2980 2920 Output Total 2225 1675 Balance 755 1245 Weight 85.3 kg 86.1 kg Exam: General appearance: PRESENT: no acute distress, cooperative, well-developed, well-nourished Head exam: PRESENT: atraumatic, normocephalic Eye exam: PRESENT: conjunctiva slightly pale, PERRLA. ABSENT: scleral icterus Neck exam: ABSENT: JVD Respiratory exam: PRESENT: Normal breath sounds. ABSENT: crackles, rales, rhonchi, unlabored, wheezes Cardiovascular exam: PRESENT: Regular rate rhythm -+S1, +S2. ABSENT: diastolic murmur, systolic murmur GI/Abdominal exam: PRESENT: normal bowel sounds, soft. ABSENT: guarding, mass, tenderness Extremities exam: ABSENT: No edema Neurological exam: PRESENT: Asleep but arousable, oriented to person, place and time. Skin exam: PRESENT: dry, warm, Results Laboratory Results: 12/06/19 05:12 12/06/19 05:12 12/06/19 12/06/19 05:12 05:12 WBC 15.3 H RBC 3.62 L Hgb 9.8 L Hct 29.9 L MCV 83 MCH 26.9 L MCHC 32.7 RDW 18.1 H Plt Count 366 Seg Neutrophils % Not Reportable Sodium 131.1 L Potassium 3.8 Chloride 107 Carbon Dioxide 16 L Anion Gap 8 BUN 19 Creatinine 1.23 Est GFR ( Amer) > 60 Glucose 114 H Calcium 7.6 L 12/02/19 12/04/19 12/04/19 20:59 19:05 19:05 Creatine Kinase 48 L CK-MB (CK-2) 1.28 Troponin I 0.037 0.032 12/05/19 12/05/19 12/05/19 00:46 00:46 07:44 Creatine Kinase 38 L 30 L CK-MB (CK-2) 1.02 Troponin I 0.042 12/05/19 07:44 Creatine Kinase CK-MB (CK-2) 1.02 Troponin I 0.053 Impressions: Head CT 12/02/19 19:34 IMPRESSION: 1. No acute intracranial abnormalities. Nonspecific white matter change most likely small vessel ischemic disease, age indeterminate. 2. CT is insensitive for early evaluation of acute stroke. If there is clinical concern for acute ischemia, an MRI may be considered. Abdomen/Pelvis CT 12/02/19 20:06 IMPRESSION: Right renal soft tissue mass is suspected, newly developed from prior CT abdomen dated 06/19/2019. Correlate clinically. Previously noted right hydronephrosis has resolved recommend follow-up renal ultrasound for further evaluation and follow-up CT with IV contrast with functioning IV. Chest X-Ray 12/04/19 00:00 IMPRESSION: NO ACUTE RADIOGRAPHIC FINDING IN THE CHEST. Renal Ultrasound 12/04/19 00:00 IMPRESSION: Solid-appearing mass arising off the upper to mid pole the right kidney. This could represent infectious or inflammatory process. Neoplasm cannot be excluded. Mild dilatation of the right collecting system. Assessment & Plan - Diagnosis (1) Acute kidney injury Is this a current diagnosis for this admission?: Yes Plan: Currently resolved. (2) Hyponatremia Is this a current diagnosis for this admission?: Yes Plan: Slowly improving with IV fluids. (3) Acute diverticulitis Is this a current diagnosis for this admission?: Yes Plan: Treated with IV Zosyn. (4) Anemia Qualifiers: Anemia type: due to chronic kidney disease Chronic kidney disease stage: stage 3 (moderate) Qualified Code(s): N18.3 - Chronic kidney disease, stage 3 (moderate); D63.1 - Anemia in chronic kidney disease Is this a current diagnosis for this admission?: Yes (5) Metabolic acidosis Is this a current diagnosis for this admission?: Yes Plan: On sodium bicarbonate. Slightly better. (6) Metabolic encephalopathy Is this a current diagnosis for this admission?: Yes Plan: Improved. (7) Right renal mass Is this a current diagnosis for this admission?: Yes Plan: Oncology following. (8) Urothelial carcinoma Is this a current diagnosis for this admission?: Yes - Notes Notes: We will sign off. Please call us back if we can be of further help. - Time Time with patient: Less than 15 minutes
[2019-12-07] MEDS: NORMAL SALINE 1000 ML 1,000 ML IV PRN (04:30)
[2019-12-07] MEDS: HEPARIN SOD (PORCINE) 5,000 UNIT/ML 1 ML VIAL SUBCUT SCH ×2 (05:23→16:13)
[2019-12-07] MEDS: DILTIAZEM HCL 30 MG TABLET PO SCH ×2 (05:25→16:13)
[2019-12-07] MEDS: PANTOPRAZOLE SODIUM 20 MG TABLET.DR PO SCH (05:25)
[2019-12-07 05:40] LABS: ANION GAP 8 (5-19); BLOOD UREA NITROGEN 16 mg/dL (7-20); CALCIUM 7.8 mg/dL (8.4-10.2); CARBON DIOXIDE 17 mmol/L (22-30); CHLORIDE 108 mmol/L (98-107); GLUCOSE 115 mg/dL (75-110); POTASSIUM 3.8 mmol/L (3.6-5.0)
[2019-12-07 08:22] LABS: HEMATOCRIT 28.5 % (37.9-51.0); HEMOGLOBIN 9.3 g/dL (13.5-17.0); MEAN CORPUSCULAR HEMOGLOBIN 27.1 pg (27.0-33.4); MEAN CORPUSCULAR HGB CONC 32.7 g/dL (32.0-36.0); MEAN CORPUSCULAR VOLUME 83 fl (80-97); RED BLOOD COUNT 3.44 10^6/uL (4.35-5.55); RED CELL DISTRIBUTION WIDTH 18.6 % (11.5-14.0); WHITE BLOOD COUNT 16.6 10^3/uL (4.0-10.5)
--- NOTE | 2019-12-07 08:31 | PDOC PROGRESS REPORT ---
Subjective Progress Note for:: 12/07/19 Subjective:: Patient really feels ready to go home, was confused overnight. Reason For Visit: SEPSIS, ACUTE DIVERTICLITIS, NEW RENAL MASS Physical Exam Vital Signs: Temp Pulse Resp BP Pulse Ox 97.9 F 91 22 H 152/76 H 98 12/07/19 03:25 12/07/19 07:00 12/07/19 03:25 12/07/19 03:25 12/07/19 03:25 Intake & Output 12/06/19 12/07/19 12/08/19 06:59 06:59 06:59 Intake Total 2920 2760 Output Total 1675 Balance 1245 2760 Weight 86.1 kg 86.1 kg General appearance: PRESENT: no acute distress, well-developed, well-nourished Head exam: PRESENT: atraumatic, normocephalic Eye exam: PRESENT: conjunctiva pink, EOMI, PERRLA. ABSENT: scleral icterus Ear exam: PRESENT: normal external ear exam Mouth exam: PRESENT: moist, tongue midline Neck exam: ABSENT: carotid bruit, JVD, lymphadenopathy, thyromegaly Respiratory exam: PRESENT: clear to auscultation enmanuel. ABSENT: rales, rhonchi, wheezes Cardiovascular exam: PRESENT: RRR. ABSENT: diastolic murmur, rubs, systolic murmur Pulses: PRESENT: normal dorsalis pedis pul Vascular exam: PRESENT: normal capillary refill GI/Abdominal exam: PRESENT: normal bowel sounds, soft. ABSENT: distended, guarding, mass, organolmegaly, rebound, tenderness Rectal exam: PRESENT: deferred Extremities exam: PRESENT: full ROM. ABSENT: calf tenderness, clubbing, pedal edema Neurological exam: PRESENT: alert, awake, oriented to person, oriented to place, oriented to time, oriented to situation, CN II-XII grossly intact. ABSENT: motor sensory deficit Psychiatric exam: PRESENT: appropriate affect, normal mood. ABSENT: homicidal ideation, suicidal ideation Skin exam: PRESENT: dry, intact, warm. ABSENT: cyanosis, rash Results Laboratory Results: 12/07/19 05:05 12/07/19 05:05 12/07/19 12/07/19 05:05 05:05 WBC 16.6 H RBC 3.44 L Hgb 9.3 L Hct 28.5 L MCV 83 MCH 27.1 MCHC 32.7 RDW 18.6 H Plt Count 366 Seg Neutrophils % Not Reportable Sodium 132.5 L Potassium 3.8 Chloride 108 H Carbon Dioxide 17 L Anion Gap 8 BUN 16 Creatinine 1.22 Est GFR ( Amer) > 60 Glucose 115 H Calcium 7.8 L 12/02/19 12/04/19 12/04/19 20:59 19:05 19:05 Creatine Kinase 48 L CK-MB (CK-2) 1.28 Troponin I 0.037 0.032 12/05/19 12/05/19 12/05/19 00:46 00:46 07:44 Creatine Kinase 38 L 30 L CK-MB (CK-2) 1.02 Troponin I 0.042 12/05/19 07:44 Creatine Kinase CK-MB (CK-2) 1.02 Troponin I 0.053 Impressions: Head CT 12/02/19 19:34 IMPRESSION: 1. No acute intracranial abnormalities. Nonspecific white matter change most likely small vessel ischemic disease, age indeterminate. 2. CT is insensitive for early evaluation of acute stroke. If there is clinical concern for acute ischemia, an MRI may be considered. Abdomen/Pelvis CT 12/02/19 20:06 IMPRESSION: Right renal soft tissue mass is suspected, newly developed from prior CT abdomen dated 06/19/2019. Correlate clinically. Previously noted right hydronephrosis has resolved recommend follow-up renal ultrasound for further evaluation and follow-up CT with IV contrast with functioning IV. Chest X-Ray 12/04/19 00:00 IMPRESSION: NO ACUTE RADIOGRAPHIC FINDING IN THE CHEST. Renal Ultrasound 12/04/19 00:00 IMPRESSION: Solid-appearing mass arising off the upper to mid pole the right kidney. This could represent infectious or inflammatory process. Neoplasm cannot be excluded. Mild dilatation of the right collecting system. Assessment & Plan - Diagnosis (1) Urothelial carcinoma Is this a current diagnosis for this admission?: Yes Plan: As noted previously, holding on treatment for now. Patient will see us in 2 weeks. (2) Anemia Qualifiers: Anemia type: due to chronic kidney disease Chronic kidney disease stage: stage 3 (moderate) Qualified Code(s): N18.3 - Chronic kidney disease, stage 3 (moderate); D63.1 - Anemia in chronic kidney disease Is this a current diagnosis for this admission?: Yes Plan: Hemoglobin recently stable. - Time Time Spent with patient: 15-24 minutes
[2019-12-07 08:39] LABS: BASOPHILS % (MANUAL) 0 % (0-2); EOSINOPHILS % (MANUAL) 0 % (0-6); LYMPHOCYTES % (MANUAL) 0 % (13-45); MONOCYTES % (MANUAL) 6 % (3-13); SEGMENTED NEUTROPHILS % (MAN) 94 % (42-78); TOTAL CELLS COUNTED 100
[2019-12-07 08:42] LABS: ANISOCYTOSIS 2+; OVALOCYTES SLIGHT; PLATELET CLUMPS PRESENT; PLATELET COMMENT ADEQUATE; PLATELET LARGE PRESENT; POIKILOCYTOSIS 1+; POLYCHROMASIA SLIGHT; SCHISTOCYTES SLIGHT; TOXIC VACUOLATION PRESENT
[2019-12-07 08:43] LABS: PLATELET COUNT 366 10^3/uL (150-450)
[2019-12-07] MEDS ORDERED: CIPROFLOXACIN HCL 500 MG TABLET PO SCH (10:00)
[2019-12-07] MEDS: SODIUM BICARBONATE 650 MG TABLET PO SCH (10:44)
[2019-12-07] MEDS: ATORVASTATIN CALCIUM 40 MG TABLET PO SCH (10:44)
[2019-12-07] MEDS: PAROXETINE HCL 20 MG TABLET PO SCH (10:44)
--- NOTE | 2019-12-07 11:57 | RADIOLOGY REPORT (SQ) ---
EXAM DESCRIPTION: CHEST SINGLE VIEW IMAGES COMPLETED DATE/TIME: 12/07/2019 10:59 am REASON FOR STUDY: cough COMPARISON: 12/07/2019 EXAM PARAMETERS: NUMBER OF VIEWS: One view. TECHNIQUE: Single frontal radiographic view of the chest acquired. RADIATION DOSE: NA LIMITATIONS: None. FINDINGS: LUNGS AND PLEURA: No opacities, masses or pneumothorax. No pleural effusion. MEDIASTINUM AND HILAR STRUCTURES: No masses. Contour normal. HEART AND VASCULAR STRUCTURES: Heart normal in size. Normal vasculature. BONES: No acute findings. HARDWARE: None in the chest. OTHER: No other significant finding. IMPRESSION: NO ACUTE RADIOGRAPHIC FINDING IN THE CHEST. TECHNICAL DOCUMENTATION: JOB ID: [id number] 2010 [employer]- All Rights Reserved Reading location - IP/workstation name: [email or web address]
--- NOTE | 2019-12-07 12:27 | PDOC PROGRESS REPORT ---
Subjective Progress Note for:: 12/07/19 Subjective:: Patient is currently doing fair Patient is afebrile Patient is try to pull the catheter was small blood but currently denied any pain and no more blood Patient's white count is still elevated Patient's really wants to go home Patient was confused last night little bit but more alert awake and oriented this morning Denied any chest pain no short of breath Reason For Visit: SEPSIS, ACUTE DIVERTICLITIS, NEW RENAL MASS Physical Exam Vital Signs: Temp Pulse Resp BP Pulse Ox 97.9 F 91 22 H 152/76 H 98 12/07/19 03:25 12/07/19 07:00 12/07/19 03:25 12/07/19 03:25 12/07/19 03:25 Intake & Output 12/06/19 12/07/19 12/08/19 06:59 06:59 06:59 Intake Total 2920 2760 Output Total 1675 Balance 1245 2760 Weight 86.1 kg 86.1 kg General appearance: PRESENT: no acute distress, well-developed, well-nourished Head exam: PRESENT: atraumatic, normocephalic Eye exam: PRESENT: conjunctiva pink, EOMI, PERRLA. ABSENT: scleral icterus Ear exam: PRESENT: normal external ear exam Mouth exam: PRESENT: moist, tongue midline Neck exam: PRESENT: full ROM. ABSENT: carotid bruit, JVD, lymphadenopathy, thyromegaly Respiratory exam: PRESENT: clear to auscultation enmanuel Cardiovascular exam: PRESENT: RRR. ABSENT: diastolic murmur, rubs, systolic m urmur Pulses: PRESENT: normal dorsalis pedis pul, +2 pedal pulses bilateral Vascular exam: PRESENT: normal capillary refill GI/Abdominal exam: PRESENT: normal bowel sounds, soft. ABSENT: distended, guarding, mass, organolmegaly, rebound, tenderness Rectal exam: PRESENT: deferred Musculoskeletal exam: PRESENT: ambulatory Neurological exam: PRESENT: alert, awake, oriented to person, oriented to place, oriented to time, oriented to situation, CN II-XII grossly intact. ABSENT: motor sensory deficit Psychiatric exam: PRESENT: appropriate affect, normal mood. ABSENT: homicidal ideation, suicidal ideation Skin exam: PRESENT: dry, intact, warm. ABSENT: cyanosis, rash Results Laboratory Results: 12/07/19 05:05 12/07/19 05:05 12/07/19 12/07/19 05:05 05:05 WBC 16.6 H RBC 3.44 L Hgb 9.3 L Hct 28.5 L MCV 83 MCH 27.1 MCHC 32.7 RDW 18.6 H Plt Count 366 Seg Neutrophils % Not Reportable Sodium 132.5 L Potassium 3.8 Chloride 108 H Carbon Dioxide 17 L Anion Gap 8 BUN 16 Creatinine 1.22 Est GFR ( Amer) > 60 Glucose 115 H Calcium 7.8 L 12/02/19 12/04/19 12/04/19 20:59 19:05 19:05 Creatine Kinase 48 L CK-MB (CK-2) 1.28 Troponin I 0.037 0.032 12/05/19 12/05/19 12/05/19 00:46 00:46 07:44 Creatine Kinase 38 L 30 L CK-MB (CK-2) 1.02 Troponin I 0.042 12/05/19 07:44 Creatine Kinase CK-MB (CK-2) 1.02 Troponin I 0.053 Impressions: Head CT 12/02/19 19:34 IMPRESSION: 1. No acute intracranial abnormalities. Nonspecific white matter change most likely small vessel ischemic disease, age indeterminate. 2. CT is insensitive for early evaluation of acute stroke. If there is clinical concern for acute ischemia, an MRI may be considered. Abdomen/Pelvis CT 12/02/19 20:06 IMPRESSION: Right renal soft tissue mass is suspected, newly developed from prior CT abdomen dated 06/19/2019. Correlate clinically. Previously noted right hydronephrosis has resolved recommend follow-up renal ultrasound for further evaluation and follow-up CT with IV contrast with functioning IV. Renal Ultrasound 12/04/19 00:00 IMPRESSION: Solid-appearing mass arising off the upper to mid pole the right kidney. This could represent infectious or inflammatory process. Neoplasm cannot be excluded. Mild dilatation of the right collecting system. Chest X-Ray 12/07/19 00:00 IMPRESSION: NO ACUTE RADIOGRAPHIC FINDING IN THE CHEST. Assessment & Plan - Diagnosis (1) Acute kidney injury Is this a current diagnosis for this admission?: Yes Plan: As per discussed with the nephrology discontinues the current medications no other further interventions (2) Anemia Qualifiers: Anemia type: due to chronic kidney disease Chronic kidney disease stage: stage 3 (moderate) Qualified Code(s): N18.3 - Chronic kidney disease, stage 3 (moderate); D63.1 - Anemia in chronic kidney disease Is this a current diagnosis for this admission?: Yes Plan: Currently all stable (3) Hyponatremia Is this a current diagnosis for this admission?: Yes Plan: Currently all resolving with IV fluid (4) Metabolic encephalopathy Is this a current diagnosis for this admission?: Yes (5) Right renal mass Is this a current diagnosis for this admission?: Yes (6) Sepsis Qualifiers: Sepsis type: sepsis due to unspecified organism Sepsis acute organ dysfunction status: with acute organ dysfunction Severe sepsis acute organ dysfunction type: encephalopathy Severe sepsis shock status: without septic shock Qualified Code(s): A41.9 - Sepsis, unspecified organism; R65.20 - Severe sepsis without septic shock; G93.40 - Encephalopathy, unspecified Is this a current diagnosis for this admission?: Yes (7) Urothelial carcinoma Is this a current diagnosis for this admission?: Yes (8) Abdominal pain Qualifiers: Abdominal location: unspecified location Qualified Code(s): R10.9 - Unspecified abdominal pain Is this a current diagnosis for this admission?: Yes - Time Time Spent with patient: 25-34 minutes Anticipated discharge: Home with Homehealth Anticipated DC Timeframe: within 24 hours - Plan Summary Plan Summary: As per discussed with the oncology follow as outpatient pretty much persistent elevated white count will give a Cipro and Flagyl for 5 more days continues the current other medications we will add the Cardizem discussed with the patient's son and the regarding the patient's current conditions if the patient is remained stable hopefully discharge today or tomorrow morning
--- NOTE | 2019-12-07 12:41 | PDOC DISCHARGE SUMMARY ---
Impression - Admit/DC Date/PCP Admission Date/Primary Care Provider: 12/03/19 00:21 LUPE GARDUNO PA-C Discharge Date: 12/07/19 - Discharge Diagnosis (1) Acute kidney injury Is this a current diagnosis for this admission?: Yes (2) Anemia Is this a current diagnosis for this admission?: Yes (3) Hyponatremia Is this a current diagnosis for this admission?: Yes (4) Metabolic encephalopathy Is this a current diagnosis for this admission?: Yes (5) Right renal mass Is this a current diagnosis for this admission?: Yes (6) Sepsis Is this a current diagnosis for this admission?: Yes (7) Urothelial carcinoma Is this a current diagnosis for this admission?: Yes (8) Abdominal pain Is this a current diagnosis for this admission?: Yes - Additional Information Resuscitation Status: Full Code Discharge Diet: Cardiac Discharge Activity: Activity As Tolerated Referrals: LUPE ESPINOZA PA-C [Primary Care Provider] - 12/11/19 10:45 am (f/u with dr rivera f/u with oncology ) Prescriptions: Diltiazem HCl [Cardizem 30 mg Tablet] 30 mg PO Q8 #90 tablet Ciprofloxacin HCl [Cipro 500 mg Tablet] 500 mg PO BID #20 tablet Metronidazole [Flagyl 500 mg Tablet] 500 mg PO BID #10 tablet Sodium Bicarbonate [Sodium Bicarbonate 650 mg Tablet] 1,300 mg PO Q12 #60 tablet Home Medications: Atorvastatin Calcium 40 mg PO DAILY 04/17/16 Gabapentin [Neurontin 100 mg Capsule] 100 mg PO TID 12/03/19 Hydrocodone/Acetaminophen [Lorcet 5-325 mg Tablet] 1 each PO Q6HP PRN 12/03/19 Megestrol Acetate 400 mg PO DAILY 12/03/19 Omeprazole 20 mg PO DAILY 12/03/19 Oxycodone HCl [Oxy-Ir 5 mg Tablet] 10 mg PO Q6HP PRN 12/03/19 Paroxetine HCl [Paxil 20 mg Tablet] 20 mg PO DAILY 12/03/19 Ciprofloxacin HCl [Cipro 500 mg Tablet] 500 mg PO BID #20 tablet 12/07/19 Diltiazem HCl [Cardizem 30 mg Tablet] 30 mg PO Q8 #90 tablet 12/07/19 Metronidazole [Flagyl 500 mg Tablet] 500 mg PO BID #10 tablet 12/07/19 Sodium Bicarbonate [Sodium Bicarbonate 650 mg Tablet] 1,300 mg PO Q12 #60 tablet 12/07/19 History of Present Illiness History of Present Illness: ANJALI SABA is a 84 year old male Patient was admitting in the hospital for altered mental status possible sepsis possible diverticulitis patient started on IV antibiotic IV fluids for renal failure , Known cancer of bladder cancer and a history of prostate cancers history of the hydronephrosis currently see a urology at [place] and also see oncology Hospital Course Hospital Course: This is a 84-year-old male's with a history of the hypertension hyperlipidemia history of the bladder cancer status post metastatic disease history of the previous prostate cancers history of the chronic kidney disease came to the emergency department with a complaining of altered mental status week patient's found acute renal failure on chronic kidney disease also anemic elevated white count questionable diverticulitis Patient start on IV antibiotics get the blood culture urine culture all negatives patient responds very well except the patient's persistent elevated white count Renal function is also improving hyponatremia is also improving Seen by Dr. Barnes nephrology suggest continues to current medications no need further evaluation at this point follow outpatient Patient seen by the oncology and suggest follow outpatient Patient otherwise doing well patient is put on the Cipro and Flagyl patients really wants to go home patient is walking the hallway without any problems p.o. intake is fair This with the patient's and the son regarding the patient's current conditions we will send the patient with the home health and physical therapy Physical Exam Vital Signs: Temp Pulse Resp BP Pulse Ox 97.9 F 91 22 H 152/76 H 98 12/07/19 03:25 12/07/19 07:00 12/07/19 03:25 12/07/19 03:25 12/07/19 03:25 Intake & Output 12/06/19 12/07/19 12/08/19 06:59 06:59 06:59 Intake Total 2920 2760 Output Total 1675 Balance 1245 2760 Weight 86.1 kg 86.1 kg General appearance: PRESENT: no acute distress, well-developed, well-nourished Head exam: PRESENT: atraumatic, normocephalic Eye exam: PRESENT: conjunctiva pink, EOMI, PERRLA. ABSENT: scleral icterus Ear exam: PRESENT: normal external ear exam Mouth exam: PRESENT: moist, tongue midline Neck exam: ABSENT: carotid bruit, JVD, lymphadenopathy, thyromegaly Respiratory exam: PRESENT: clear to auscultation enmanuel. ABSENT: rales, rhonchi, wheezes Cardiovascular exam: PRESENT: RRR. ABSENT: diastolic murmur, rubs, systolic murmur Pulses: PRESENT: normal dorsalis pedis pul Vascular exam: PRESENT: normal capillary refill GI/Abdominal exam: PRESENT: normal bowel sounds, soft. ABSENT: distended, guarding, mass, organolmegaly, rebound, tenderness Rectal exam: PRESENT: deferred Extremities exam: PRESENT: full ROM. ABSENT: calf tenderness, clubbing, pedal edema Neurological exam: PRESENT: alert, awake, oriented to person, oriented to place, oriented to time, oriented to situation, CN II-XII grossly intact. ABSENT: motor sensory deficit Psychiatric exam: PRESENT: appropriate affect, normal mood. ABSENT: homicidal ideation, suicidal ideation Skin exam: PRESENT: dry, intact, warm. ABSENT: cyanosis, rash Results Laboratory Results: WBC 16.6 10^3/uL (4.0-10.5) H 12/07/19 05:05 RBC 3.44 10^6/uL (4.35-5.55) L 12/07/19 05:05 Hgb 9.3 g/dL (13.5-17.0) L 12/07/19 05:05 Hct 28.5 % (37.9-51.0) L 12/07/19 05:05 MCV 83 fl (80-97) 12/07/19 05:05 MCH 27.1 pg (27.0-33.4) 12/07/19 05:05 MCHC 32.7 g/dL (32.0-36.0) 12/07/19 05:05 RDW 18.6 % (11.5-14.0) H 12/07/19 05:05 Plt Count 366 10^3/uL (150-450) 12/07/19 05:05 Lymph % (Auto) Not Reportable 12/07/19 05:05 [place] % (Auto) Not Reportable 12/07/19 05:05 Eos % (Auto) Not Reportable 12/07/19 05:05 Baso % (Auto) Not Reportable 12/07/19 05:05 Reticulocyte # 0.042 10^6/uL (0.028-0.122) 12/04/19 05:22 Absolute Neuts (auto) Not Reportable 12/07/19 05:05 Absolute Lymphs (auto) Not Reportable 12/07/19 05:05 Absolute Monos (auto) Not Reportable 12/07/19 05:05 Absolute Eos (auto) Not Reportable 12/07/19 05:05 Absolute Basos (auto) Not Reportable 12/07/19 05:05 Total Counted 100 12/07/19 05:05 Seg Neutrophils % Not Reportable 12/07/19 05:05 Seg Neuts % (Manual) 94 % (42-78) H 12/07/19 05:05 Band Neutrophils % 2 % (3-5) L 12/02/19 20:10 Lymphocytes % (Manual) 0 % (13-45) L 12/07/19 05:05 Monocytes % (Manual) 6 % (3-13) 12/07/19 05:05 Eosinophils % (Manual) 0 % (0-6) 12/07/19 05:05 Basophils % (Manual) 0 % (0-2) 12/07/19 05:05 Abs Neuts (Manual) 15.6 10^3/uL (1.7-8.2) H 12/07/19 05:05 Abs Lymphs (Manual) 0.0 10^3/uL (0.5-4.7) L 12/07/19 05:05 Abs Monocytes (Manual) 1.0 10^3/uL (0.1-1.4) 12/07/19 05:05 Absolute Eos (Manual) 0.0 10^3/uL (0.0-0.6) 12/07/19 05:05 Abs Basophils (Manual) 0.0 10^3/uL (0.0-0.2) 12/07/19 05:05 Toxic Granulation SLIGHT 12/06/19 05:12 Toxic Vacuolation PRESENT 12/07/19 05:05 Clumped Platelets PRESENT 12/07/19 05:05 Large Platelets PRESENT 12/07/19 05:05 Platelet Comment ADEQUATE 12/07/19 05:05 Polychromasia SLIGHT 12/07/19 05:05 Hypochromasia SLIGHT 12/03/19 09:10 Poikilocytosis 1+ 12/07/19 05:05 Anisocytosis 2+ 12/07/19 05:05 Microcytosis SLIGHT 12/03/19 09:10 Tear Drop Cells SLIGHT 12/06/19 05:12 Ovalocytes SLIGHT 12/07/19 05:05 Alec Cells SLIGHT 12/05/19 07:44 Acanthocytes (Spur) SLIGHT 12/07/19 05:05 Schistocytes SLIGHT 12/07/19 05:05 RBC Morph Comment NORMO-CYTIC/CHROMIC 12/05/19 07:44 Retic Count (auto) 1.61 % (0.66-2.85) 12/04/19 05:22 PT 17.2 SEC (11.4-15.4) H 12/04/19 05:22 INR 1.39 12/04/19 05:22 Carbonic Acid 0.53 mmol/L (1.05-1.35) L 12/03/19 03:30 HCO3/H2CO3 Ratio 30:1 12/03/19 03:30 ABG pH 7.59 (7.35-7.45) H 12/03/19 03:30 ABG pCO2 17.7 mmHg (35-45) L* 12/03/19 03:30 ABG pO2 112.0 mmHg (80-100) H 12/03/19 03:30 ABG HCO3 16.4 mmol/L (20-24) L 12/03/19 03:30 ABG Total CO2 17.0 mmol/L (23-27) L 12/03/19 03:30 ABG O2 Saturation 98.8 % (94-98) H 12/03/19 03:30 ABG Base Excess -4.4 mmol/L 12/03/19 03:30 VBG pH 7.64 (7.30-7.42) H 12/02/19 20:59 VBG pCO2 18.3 mmHg (35-63) L* 12/02/19 20:59 VBG HCO3 19.3 mmol/L (20-32) L 12/02/19 20:59 VBG Base Excess 0.1 mmol/L 12/02/19 20:59 FiO2 28% 12/03/19 03:30 Sodium 132.5 mmol/L (137-145) L 12/07/19 05:05 Potassium 3.8 mmol/L (3.6-5.0) 12/07/19 05:05 Chloride 108 mmol/L (98-107) H 12/07/19 05:05 Carbon Dioxide 17 mmol/L (22-30) L 12/07/19 05:05 Anion Gap 8 (5-19) 12/07/19 05:05 BUN 16 mg/dL (7-20) 12/07/19 05:05 Creatinine 1.22 mg/dL (0.52-1.25) 12/07/19 05:05 Est GFR ( Amer) > 60 (>60) 12/07/19 05:05 Est GFR (Non-Af Amer) Cancelled 12/03/19 16:15 Est GFR (MDRD) Non-Af 57 (>60) L 12/07/19 05:05 Glucose 115 mg/dL (75-110) H 12/07/19 05:05 Lactic Acid 1.3 mmol/L (0.7-2.1) 12/03/19 09:10 Calcium 7.8 mg/dL (8.4-10.2) L 12/07/19 05:05 Magnesium 2.2 mg/dL (1.6-2.3) 12/04/19 19:05 Iron < 10.1 ug/dL (49-181) L 12/04/19 05:22 TIBC 126 ug/dL (250-450) L 12/04/19 05:22 Iron Saturation UNABLE TO CALCULATE % (20% - 50%) 12/04/19 05:22 Ferritin 845.00 ng/mL (17.9-464.0) H 12/04/19 05:22 Total Bilirubin 1.5 mg/dL (0.2-1.3) H 12/04/19 19:05 Direct Bilirubin 0.6 mg/dL (0.0-0.4) H 12/04/19 19:05 Neonat Total Bilirubin Not Reportable 12/04/19 19:05 Neonat Direct Bilirubin Not Reportable 12/04/19 19:05 Neonat Indirect Bili Not Reportable 12/04/19 19:05 AST 31 U/L (17-59) 12/04/19 19:05 ALT 20 U/L (<50) 12/04/19 19:05 Alkaline Phosphatase 192 U/L (38-126) H 12/04/19 19:05 Creatine Kinase 30 U/L (55-170) L 12/05/19 07:44 CK-MB (CK-2) 1.02 ng/mL (<4.55) 12/05/19 07:44 Troponin I 0.053 ng/mL 12/05/19 07:44 Total Protein 4.9 g/dL (6.3-8.2) L 12/04/19 19:05 Albumin 2.1 g/dL (3.5-5.0) L 12/04/19 19:05 EGFR Cancelled 12/03/19 16:15 Vitamin B12 > 1000.0 pg/mL (239-931) H 12/04/19 05:22 Folate 6.01 ng/mL (>2.76) 12/04/19 05:22 Urine Color YELLOW 12/02/19 20:10 Urine Appearance CLOUDY 12/02/19 20:10 Urine pH 8.0 (5.0-9.0) 12/02/19 20:10 Ur Specific [place] 1.015 12/02/19 20:10 Urine Protein 100 mg/dL (NEGATIVE) H 12/02/19 20:10 Urine Glucose (UA) NEGATIVE mg/dL (NEGATIVE) 12/02/19 20:10 Urine Ketones NEGATIVE mg/dL (NEGATIVE) 12/02/19 20:10 Urine Blood LARGE (NEGATIVE) H 12/02/19 20:10 Urine Nitrite (Reflex) NEGATIVE (NEGATIVE) 12/02/19 20:10 Urine Bilirubin NEGATIVE (NEGATIVE) 12/02/19 20:10 Urine Urobilinogen NEGATIVE mg/dL (<2.0) 12/02/19 20:10 Leukocyte Esterase Rfl LARGE (NEGATIVE) H 12/02/19 20:10 Urine RBC (Auto) >182 /HPF 12/02/19 20:10 U Hyaline Cast (Auto) 6 /LPF 12/02/19 20:10 Urine Bacteria (Auto) TRACE /HPF 12/02/19 20:10 Urine WBC (Reflex) > 182 /HPF 12/02/19 20:10 U Non-Squamous Epis Auto 1 /HPF 12/02/19 20:10 Urine Yeast (Budding) PRESENT /HPF 12/02/19 20:10 Urine Ascorbic Acid NEGATIVE (NEGATIVE) 12/02/19 20:10 Stl C. Difficile GDH Ag NEGATIVE (NEGATIVE) 12/06/19 12:30 Stl C.difficile Tox A&B NEGATIVE (NEGATIVE) 12/06/19 12:30 Blood Type A NEGATIVE 12/04/19 08:28 Blood Type Confirm A NEGATIVE 12/04/19 08:34 Antibody Screen NEGATIVE 12/04/19 08:28 Crossmatch See Detail 12/04/19 08:28 12/02/19 12/04/19 12/05/19 20:59 19:05 00:46 CK-MB (CK-2) 1.28 1.02 Troponin I 0.037 0.032 0.042 12/05/19 07:44 CK-MB (CK-2) 1.02 Troponin I 0.053 Impressions: Head CT 12/02/19 19:34 IMPRESSION: 1. No acute intracranial abnormalities. Nonspecific white matter change most likely small vessel ischemic disease, age indeterminate. 2. CT is insensitive for early evaluation of acute stroke. If there is clinical concern for acute ischemia, an MRI may be considered. Chest X-Ray 12/02/19 19:35 IMPRESSION: No evidence of acute cardiopulmonary disease. Abdomen/Pelvis CT 12/02/19 20:06 IMPRESSION: Right renal soft tissue mass is suspected, newly developed from prior CT abdomen dated 06/19/2019. Correlate clinically. Previously noted right hydronephrosis has resolved recommend follow-up renal ultrasound for further evaluation and follow-up CT with IV contrast with functioning IV. Chest X-Ray 12/04/19 00:00 IMPRESSION: NO ACUTE RADIOGRAPHIC FINDING IN THE CHEST. Renal Ultrasound 12/04/19 00:00 IMPRESSION: Solid-appearing mass arising off the upper to mid pole the right kidney. This could represent infectious or inflammatory process. Neoplasm cannot be excluded. Mild dilatation of the right collecting system. Chest X-Ray 12/07/19 00:00 IMPRESSION: NO ACUTE RADIOGRAPHIC FINDING IN THE CHEST. Plan Time Spent: Greater than 30 Minutes Stroke Is this a Stroke Patient?: No Acute Heart Failure - Is this a Heart Failure Patient?: No
[2019-12-07 13:17] VITALS: BP 143/72
== END 2019-12-07 15:00 | disposition home health service (06) | DRG 871 ==
LOC: ER 19:31 → EH 12-03 00:21 → 5 12-03 02:15
PROVIDERS: ADMIT Family Medicine; ATTEND Family Medicine
PROC: 30233N1 Transfusion of Nonautologous Red Blood Cells into Peripheral Vein, Percutaneous Approach (ICD-10-PCS; principal; 2019-12-04)
DX: A41.9 Sepsis, unspecified organism (principal); G93.41 Metabolic encephalopathy; N17.9 Acute kidney failure, unspecified; K57.92 Diverticulitis of intestine, part unspecified, without perforation or abscess without bleeding; E87.1 Hypo-osmolality and hyponatremia; E87.2 Acidosis; C78.5 Secondary malignant neoplasm of large intestine and rectum; I47.1 Supraventricular tachycardia; D63.1 Anemia in chronic kidney disease; I12.9 Hypertensive chronic kidney disease with stage 1 through stage 4 chronic kidney disease, or unspecified chronic kidney disease; R01.1 Cardiac murmur, unspecified; N18.3 Chronic kidney disease, stage 3 (moderate); C67.9 Malignant neoplasm of bladder, unspecified; Z85.46 Personal history of malignant neoplasm of prostate; Z88.7 Allergy status to serum and vaccine; E78.5 Hyperlipidemia, unspecified; Z79.84 Long term (current) use of oral hypoglycemic drugs; Z93.3 Colostomy status; Z90.49 Acquired absence of other specified parts of digestive tract
CPT/HCPCS: 36415; 36430; 36600; 51701; 70450; 71045; 74177; 76770; 80048; 80053; 81001; 82550; 82553; 82607; 82728; 82746; 82803; 83540; 83550; 83605; 83735; 84484; 85025; 85045; 85610; 86850; 86900; 86901; 86920; 87040; 87070; 87086; 87324; 87449; 93005; 93010; 96361; 96365; 96375; 96376; 99291; J1170; J1644; J1940; J2543; J3490; J7030; J7050; P9016

== ENCOUNTER 2019-12-19 15:04 | Inpatient (IN) | payer MEDICARE ==
[2019-12-19 15:37] LABS: HEMATOCRIT 28.4 % (37.9-51.0); HEMOGLOBIN 9.2 g/dL (13.5-17.0); MEAN CORPUSCULAR HEMOGLOBIN 26.8 pg (27.0-33.4); MEAN CORPUSCULAR HGB CONC 32.5 g/dL (32.0-36.0); MEAN CORPUSCULAR VOLUME 83 fl (80-97); PLATELET COUNT 302 10^3/uL (150-450); RED BLOOD COUNT 3.44 10^6/uL (4.35-5.55); RED CELL DISTRIBUTION WIDTH 20.2 % (11.5-14.0); WHITE BLOOD COUNT 23.1 10^3/uL (4.0-10.5)
[2019-12-19] MEDS ORDERED: NORMAL SALINE 1000 ML 1,000 ML IV ONE (15:52)
[2019-12-19 15:59] LABS: BLOOD UREA NITROGEN 43 mg/dL (7-20); CALCIUM 7.6 mg/dL (8.4-10.2); GLUCOSE 84 mg/dL (75-110)
[2019-12-19 16:00] LABS: ALBUMIN 2.1 g/dL (3.5-5.0); ALKALINE PHOSPHATASE 314 U/L (38-126); ANION GAP 11 (5-19); ASPARTATE AMINO TRANSFERASE 59 U/L (17-59); BILIRUBIN,TOTAL 2.8 mg/dL (0.2-1.3); CARBON DIOXIDE 24 mmol/L (22-30); CHLORIDE 100 mmol/L (98-107); CREATINE KINASE 69 U/L (55-170); POTASSIUM 4.7 mmol/L (3.6-5.0); TOTAL PROTEIN 5.2 g/dL (6.3-8.2)
--- NOTE | 2019-12-19 16:00 | ER Document Report ---
ED General - General Chief Complaint: General Weakness Stated Complaint: BODY ACHES Time Seen by Provider: 12/19/19 15:32 Primary Care Provider: LUPE ESPINOZA PA-C [Primary Care Provider] - Follow up as needed Mode of Arrival: Medic Information source: Patient Notes: Patient is an 84-year-old male was brought in by EMS with complaint of generalized weakness. Patient has a pertinent past medical history and recent hospitalization was discharged on 12/07/2019 with a diagnosis of sepsis and acute diverticulitis. Patient was sent home on Cipro and Flagyl. According to patient he has not had energy to get out of bed and is just sitting in a position. Patient is complaining of but pain as well. But denies any shortness of breath or chest discomfort. Patient has a colostomy in the states that is working well. He states he is drinking at least 2 glasses of water a day. Patient also has a past medical history that is pertinent for acute kidney inju ry, anemia, hyponatremia, metabolic encephalopathy, right renal mass, sepsis, and urethral carcinoma. TRAVEL OUTSIDE OF THE [place] IN LAST 30 DAYS: No - HPI Onset: Other - Past couple days. Onset/Duration: Gradual, Worse Quality of pain: Achy Severity: Moderate - Related Data Allergies/Adverse Reactions: Tetanus Vaccines and Toxoid [Tetanus] Allergy (Severe, Verified 12/19/19 15:22) reaction in Past Medical History - Social History Smoking Status: Former Smoker Frequency of alcohol use: None Drug Abuse: None Lives with: Family, Spouse/Significant other Family History: Reviewed & Not Pertinent, Other - Mother-Pacemaker - Past Medical History Cardiac Medical History: Reports: Hx Hypercholesterolemia, Hx Hypertension - meds x 20 yrs Denies: Hx Coronary Artery Disease, Hx Heart Attack Pulmonary Medical History: Reports: Hx Pneumonia - as child Denies: Hx Asthma, Hx Bronchitis, Hx COPD Neurological Medical History: Denies: Hx Cerebrovascular Accident, Hx Seizures Malignancy Medical History: Reports Hx Colorectal Cancer, Reports Hx Prostate Cancer Musculoskeletal Medical History: Denies Hx Arthritis Psychiatric Medical History: Denies: Hx Depression Past Surgical History: Reports: Hx Appendectomy, Hx Colostomy, Hx Urinary Tract Surgery. Denies: Hx Pacemaker - Immunizations Hx Diphtheria, Pertussis, Tetanus Vaccination: Yes Hx Pneumococcal Vaccination: 03/04/15 Review of Systems - Review of Systems Constitutional: See HPI, Malaise, Weakness. denies: Chills, Fever EENT: No symptoms reported Cardiovascular: No symptoms reported Respiratory: No symptoms reported Gastrointestinal: No symptoms reported, Poor appetite, Poor fluid intake. denies: Abdominal pain Genitourinary: No symptoms reported, Dysuria Male Genitourinary: No symptoms reported Musculoskeletal: No symptoms reported Skin: No symptoms reported Hematologic/Lymphatic: No symptoms reported Neurological/Psychological: No symptoms reported Physical Exam - Vital signs Vitals: Resp Pulse Ox 24 H 93 12/19/19 15:04 12/19/19 15:04 Interpretation: Hypotensive, Tachycardic. No: Febrile - Notes Notes: PHYSICAL EXAMINATION: GENERAL: Patient is a frail-appearing 84-year-old male who is in no apparent distress but does appear weak. HEAD: Atraumatic, normocephalic. EYES: Pupils equal round and reactive to light, extraocular movements intact, sclera anicteric, conjunctiva are normal. ENT: Examination patient's oral cavity shows dry mucosa of the tongue is not fissured at this time. NECK: Normal range of motion, supple without lymphadenopathy LUNGS: Auscultation patient's lungs show bilateral breath sounds decreased throughout patient is inspiratory and expiratory wheeze with expiratory rhonchi noted. Deep breath also causes severe coughing fits. HEART: Tachycardic rhythm without murmurs ABDOMEN: Examination patient's abdomen shows bowel sounds to be markedly decreased throughout. Examination externally shows a well intact colostomy with brown stool observed in the bag. There is no sign of infection around the ostomy itself. There is diffuse tenderness to palpation in the generalized area of all 4 quads. Musculoskeletal: Patient does not want to move much but has ability to move all extremities when he chooses to do so. NEUROLOGICAL:. Normal speech, normal gait. Normal sensory, motor exams PSYCH: Normal mood, normal affect. SKIN: Examination shows patient to be forming a stage I decubitus ulcer in the gluteal fold area extending down into bilateral buttocks. Currently is only stage I with dark reddening and sensation loss. Examination patient's area of concern is the rectal area/buttock. Course - Re-evaluation Re-evalutation: 12/19/19 18:39 I discussed the case with patient's PCP Dr.Swetang Cox. he requested meto get a CT of the abdomen and pelvis to make sure there was no obstructions. I did so and it showed ascites/right-sided hydronephrosis mild with hydroureter without any obstructions seen. With a large right-sided pleural effusion. Given those findings I have covered him with Rocephin he wants him placed in MICU and he will follow - Vital Signs Vital signs: Temp Pulse Resp BP Pulse Ox 99.5 F 19 102/68 94 12/19/19 18:06 12/19/19 17:42 12/19/19 17:42 12/19/19 17:42 - Laboratory Result Diagrams: 12/19/19 15:05 12/19/19 15:05 Laboratory results interpreted by me: 12/19/19 12/19/19 12/19/19 15:05 15:05 15:05 WBC 23.1 H RBC 3.44 L Hgb 9.2 L Hct 28.4 L MCH 26.8 L RDW 20.2 H Seg Neuts % (Manual) 96 H Lymphocytes % (Manual) 1 L Abs Neuts (Manual) 22.2 H Abs Lymphs (Manual) 0.2 L PT 17.1 H Sodium 134.6 L BUN 43 H Creatinine 1.87 H Est GFR ( Amer) 42 L Est GFR (MDRD) Non-Af 35 L Lactic Acid Calcium 7.6 L Total Bilirubin 2.8 H Direct Bilirubin 2.0 H Alkaline Phosphatase 314 H Total Protein 5.2 L Albumin 2.1 L Urine Protein Urine Blood Ur Leukocyte Esterase 12/19/19 12/19/19 12/19/19 15:05 17:15 18:10 WBC RBC Hgb Hct MCH RDW Seg Neuts % (Manual) Lymphocytes % (Manual) Abs Neuts (Manual) Abs Lymphs (Manual) PT Sodium BUN Creatinine Est GFR ( Amer) Est GFR (MDRD) Non-Af Lactic Acid 3.1 H 2.3 H Calcium Total Bilirubin Direct Bilirubin Alkaline Phosphatase Total Protein Albumin Urine Protein 100 H Urine Blood MODERATE H Ur Leukocyte Esterase SMALL H Discharge - Discharge Clinical Impression: Pleural effusion, right, Hydronephrosis, right Right lower lobe pneumonia Qualifiers: Pneumonia type: due to unspecified organism Qualified Code(s): J18.9 - Pneumonia, unspecified organism Condition: Stable Disposition: ADMITTED INPATIENT Admitting Provider: [facility] Unit Admitted: I[facility]U Referrals: LUPE ESPINOZA PA-C [Primary Care Provider] - Follow up as needed
[2019-12-19 16:09] LABS: ABSOLUTE LYMPHOCYTES# (MANUAL) 0.2 10^3/uL (0.5-4.7); ABSOLUTE MONOCYTES # (MANUAL) 0.7 10^3/uL (0.1-1.4); BASOPHILS % (MANUAL) 0 % (0-2); EOSINOPHILS % (MANUAL) 0 % (0-6); LYMPHOCYTES % (MANUAL) 1 % (13-45); MONOCYTES % (MANUAL) 3 % (3-13); SEGMENTED NEUTROPHILS % (MAN) 96 % (42-78); TOTAL CELLS COUNTED 100
[2019-12-19 16:10] LABS: ANISOCYTOSIS 2+; OVALOCYTES SLIGHT; PLATELET COMMENT ADEQUATE; POIKILOCYTOSIS SLIGHT; TOXIC GRANULATION SLIGHT
[2019-12-19 16:11] LABS: CREATINE KINASE MB 0.89 ng/mL (<4.55)
[2019-12-19 16:19] LABS: TROPONIN I 0.05 ng/mL
[2019-12-19] MEDS ORDERED: IPRATROPIUM/ALBUTEROL 0.5-2.5 MG/3 ML AMPUL NEB ONE (16:26)
--- NOTE | 2019-12-19 16:26 | RADIOLOGY REPORT (SQ) ---
EXAM DESCRIPTION: CHEST SINGLE VIEW IMAGES COMPLETED DATE/TIME: 12/19/2019 4:14 pm REASON FOR STUDY: S OB COMPARISON: 12/07/2019 EXAM PARAMETERS: NUMBER OF VIEWS: One view. TECHNIQUE: Single frontal radiographic view of the chest acquired. RADIATION DOSE: NA LIMITATIONS: None. FINDINGS: LUNGS AND PLEURA: There is patchy opacification in the medial right base. MEDIASTINUM AND HILAR STRUCTURES: No masses. Contour normal. HEART AND VASCULAR STRUCTURES: Heart normal in size. Normal vasculature. BONES: No acute findings. HARDWARE: None in the chest. OTHER: No other significant finding. IMPRESSION: Cannot exclude limited right lower lobe pneumonia. TECHNICAL DOCUMENTATION: JOB ID: [id number] 2010 [employer]- All Rights Reserved Reading location - IP/workstation name: [email or web address]
[2019-12-19] MEDS ORDERED: CEFTRIAXONE 1 GM/D5W RTU 1 GM/50 ML RTUPB IV ONE (16:27)
[2019-12-19 17:00] LABS: INTERNATIONAL RATION (INR) 1.38; PROTHROMBIN TIME 17.1 SEC (11.4-15.4)
[2019-12-19 18:03] LABS: AMORPHOUS SEDIMENT,URINE 2+ /HPF; APPEARANCE,URINE CLOUDY; BILIRUBIN,URINE NEGATIVE (NEGATIVE); GLUCOSE, URINE NEGATIVE (NEGATIVE); KETONES,URINE NEGATIVE (NEGATIVE); LEUKOCYTE ESTERASE,URINE SMALL (NEGATIVE); NITRITE,URINE NEGATIVE (NEGATIVE); PROTEIN,URINE 100 mg/dL (NEGATIVE); URINE SPECIFIC GRAVITY 1.016; UROBILINOGEN,URINE NEGATIVE mg/dL (<2.0)
[2019-12-19 18:08] LABS: COLOR,URINE DARK YELLOW
--- NOTE | 2019-12-19 18:32 | RADIOLOGY REPORT (SQ) ---
EXAM DESCRIPTION: CT ABD/PELVIS NO ORAL OR IV IMAGES COMPLETED DATE/TIME: 12/19/2019 6:03 pm REASON FOR STUDY: Urtinary obstruction COMPARISON: 06/19/2019 TECHNIQUE: CT scan of the abdomen and pelvis performed without intravenous or oral contrast. Images reviewed with lung, soft tissue, and bone windows. Reconstructed coronal and sagittal MPR images revi ewed. All images stored on PACS. All CT scanners at this facility use dose modulation, iterative reconstruction, and/or weight based d osing when appropriate to reduce radiation dose to as low as reasonably achievable (ALARA). [facility]: Dose Right [facility]: CareDose [facility]: Dose Right [facility]: Teradose 4D [facility]: [employer] RADIATION DOSE: CT Rad equipment meets quality standard of care and radiation dose reduction techniq ues were employed. CTDIvol: 17.3 mGy. DLP: 1062 mGy-cm.mGy. LIMITATIONS: None. FINDINGS: LOWER CHEST: Moderate right pleural effusion with associated lower lobe atelectasis. NON-CONTRASTED LIVER, SPLEEN, ADRENALS: The liver is markedly heterogeneous with ill-defined low-dens ity areas throughout the liver. Other, well-defined hepatic cysts are present. The spleen and adren al glands are normal. PANCREAS: No masses. No peripancreatic inflammatory changes. GALLBLADDER: Distended. No gallstones. RIGHT KIDNEY AND URETER: No suspicious masses. Assessment limited by lack of IV contrast. No signif icant calcifications. There is mild right hydronephrosis. There is ureteral dilatation down to the crossing of the iliac vessels. No ureteral calculus is seen. LEFT KIDNEY AND URETER: No suspicious masses. Assessment limited by lack of IV contrast. No signifi cant calcifications. No hydronephrosis or hydroureter. AORTA AND RETROPERITONEUM: No aneurysm. No retroperitoneal masses or adenopathy. BOWEL AND PERITONEAL CAVITY: Sigmoid diverticulosis with no acute inflammation. No obvious bowel mas s. Moderate ascites. APPENDIX: Not identified. PELVIS, BLADDER, AND ABDOMINAL WALL:A Wasserman catheter is in the bladder. No pelvic mass is seen. Min imal free fluid is seen in the pelvis. Uncomplicated inguinal hernias are present. Umbilical hernia contains only fat. BONES: No significant findings. OTHER: No other significant finding. IMPRESSION: 1. The liver is markedly heterogeneous suggesting extensive metastatic disease to the l iver. 2. There is mild right hydronephrosis/hydroureter into the pelvis. No obstructing calculus is seen. 3. Diverticulosis coli. 4. Ascites. 5. Uncomplicated inguinal hernias. Umbilical hernia contains only fat. 6. Moderate right pleural effusion with associated lower lobe atelectasis. COMMENT: Quality ID # [id number]: Final reports with documentation of one or more dose reduction techniques (e.g., Automated exposure control, adjustment of the mA and/or kV according to patient size, use of iterative reconstruction technique) TECHNICAL DOCUMENTATION: JOB ID: [id number] 2010 [employer]- All Rights Reserved Reading location - IP/workstation name: [email or web address]
[2019-12-19] MEDS ORDERED: ONDANSETRON HCL INJ/PF 4 MG/2 ML SDV IV PRN (18:51)
[2019-12-19] MEDS ORDERED: ACETAMINOPHEN 325 MG TABLET PO PRN (18:51)
[2019-12-19] MEDS ORDERED: IPRATROPIUM/ALBUTEROL 0.5-2.5 MG/3 ML AMPUL NEB PRN (18:51)
[2019-12-19] MEDS ORDERED: NORMAL SALINE 1000 ML 1,000 ML IV PRN (18:51)
--- NOTE | 2019-12-19 19:33 | EKG REPORT ---
SEVERITY:- ABNORMAL ECG - SINUS OR ECTOPIC ATRIAL TACHYCARDIA RIGHT BUNDLE BRANCH BLOCK PROBABLE ANTEROSEPTAL INFARCT, AGE INDETERM : Confirmed by: Liliana Cat 19-Dec-2019 19:32:32
--- NOTE | 2019-12-19 19:33 | EKG REPORT ---
SEVERITY:- ABNORMAL ECG - WANDERING ATRIAL PACEMAKER RIGHT BUNDLE BRANCH BLOCK PROBABLE ANTEROSEPTAL INFARCT, AGE INDETERM : Confirmed by: Liliana Cat 19-Dec-2019 19:32:09
[2019-12-20] MEDS ORDERED: DILTIAZEM HCL 30 MG TABLET PO ONE (00:45)
[2019-12-20] MEDS ORDERED: DILTIAZEM HCL INJ 25 MG/5 ML VIAL ONE (01:13)
[2019-12-20] MEDS ORDERED: DILTIAZEM HCL INJ 25 MG/5 ML VIAL IV ONE (01:30)
[2019-12-20] MEDS ORDERED: DILTIAZEM HCL/D5W 125 MG/125 ML RTUINJ IV PRN (01:41)
--- NOTE | 2019-12-20 02:27 | Progress Note ---
Provider Note Provider Note: Critical CARE note: 12/20/2019 Critical care start time: 01:06 Critical care issue: Hypotension A rapid response was called as the patient had both a paroxysmal episode of atrial fibrillation with a rapid ventricular response and concomitant hypotension. Blood pressure was 77/41 and the patient was symptomatic with weakness and severe lethargy/poor responsiveness to verbal stimuli. Patient's heart rate was in the 160s and he was treated with IV diltiazem 25 mg as a single bolus dose. He responded well to this treatment with his heart rate dropping in the 60-90 range and his blood pressure improving to a systolic of 111 with a diastolic of 47 and a MAP of 62. The patient's physician (Dr. Cox) was contacted by his nurse to report the incident and treatment. I observed the patient initially during the rapid response and he was revisited on an ongoing basis throughout the remainder of my shift. Critical care end time: 02:26 Total critical care time: 19 minutes
[2019-12-20] MEDS ORDERED: NORMAL SALINE 1000 ML 1,000 ML IV PRN ×2 (02:43→06:36)
[2019-12-20] MEDS ORDERED: METOPROLOL TARTRATE PF/INJ 5 MG/5 ML SDV IV ONE ×2 (04:46→04:49)
[2019-12-20] MEDS: ALBUMIN HUMAN 12.5 GM/50 ML RTUINJ IV SCH ×4 (04:56→06:12)
[2019-12-20] MEDS: CEFEPIME 1 GM/D5W RTU 1 GM/50 ML RTUPB IV SCH ×2 (05:24→18:28)
--- NOTE | 2019-12-20 05:24 | CRITICAL CARE ADMISSION REPORT ---
HPI Date:: 12/20/19 Time:: 05:01 Reason for ICU Reason:: SVT, hypotension Admission Date/Time & PCP: Admission Date/Time: 12/19/19 19:51 Primary Care Provider: LUPE GARDUNO PA-C Patient transfered from medical floor to ICU due to hypotension and svt Dr. Rojas attending. HPI: 84 year old white male whom was admitted yesterday by his primary care provider, Dr. Cox, for weakness. The patient was found to have right lower lobe pneumonia. The patient developed SVT while on the floor and a rapid response was called due to the SVT and hypotension. The hospitalist service respnded and gave 25mg IV cardizem and started him on a cardizem gtt and the patient did have intermittent response to this treatment. Later in the evening I received a call from Dr. Cox requesting ICU admit due to continued hypotension and SVT.The patient has an extensive medical history including colon cancer and does have a colostomy and has hx of renal, prostate and uretheral cancer. Recent CT scan of abdomen suggest mets to the liver as well. The patient arrived in ICU and had a heart rate of 160 and a BP in the 70's. I called and spoke with his Elvia regarding the code status of the patient. She informed me that there should be DNR code status in his chart and I assured her i would place the order in the chart. - Diagnosis/Plan (1) Right lower lobe pneumonia Qualifiers: Pneumonia type: due to unspecified organism Qualified Code(s): J18.9 - Pneumonia, unspecified organism Is this a current diagnosis for this admission?: Yes (2) Acute kidney injury Is this a current diagnosis for this admission?: Yes (3) Hyponatremia Is this a current diagnosis for this admission?: Yes (4) Pleural effusion, right Is this a current diagnosis for this admission?: Yes (5) Anemia Qualifiers: Anemia type: due to chronic kidney disease Chronic kidney disease stage: stage 3 (moderate) Qualified Code(s): N18.3 - Chronic kidney disease, stage 3 (moderate); D63.1 - Anemia in chronic kidney disease Is this a current diagnosis for this admission?: Yes Past Medical History Cardiac Medical History: Reports: Atrial Fibrillation, Hyperlipidema, Hypertension - meds x 20 yrs Denies: Coronary Artery Disease, Myocardial Infarction Pulmonary Medical History: Reports: Pneumonia - as child Denies: Asthma, Bronchitis, Chronic Obstructive Pulmonary Disease (COPD) Neurological Medical History: Denies: Seizures Renal/ Medical History: Reports: Other - acute on chronic kidney disease Malignancy Medical History: Reports: Colorectal Cancer, Liver Cancer, Renal (Kidney) Cancer Musculoskeltal Medical History: Denies: Arthritis Psychiatric Medical History: Denies: Depression Hematology: Denies: Anemia Past Surgical History Past Surgical History: Reports: Appendectomy, Colostomy Denies: Pacemaker Social/Family History - Social History Lives with: Family, Spouse/Significant other Smoking Status: Former Smoker Frequency of Alcohol Use: None Hx Recreational Drug Use: No Drugs: None Hx Prescription Drug Abuse: No - Family History Family History: None - Medication/Allergies Home Medications: Atorvastatin Calcium 40 mg PO DAILY 04/17/16 Gabapentin [Neurontin 100 mg Capsule] 100 mg PO TID 12/03/19 Hydrocodone/Acetaminophen [Lorcet 5-325 mg Tablet] 1 each PO Q6HP PRN 12/03/19 Megestrol Acetate 400 mg PO DAILY 12/03/19 Omeprazole 20 mg PO DAILY 12/03/19 Oxycodone HCl [Oxy-Ir 5 mg Tablet] 10 mg PO Q6HP PRN 12/03/19 Paroxetine HCl [Paxil 20 mg Tablet] 20 mg PO DAILY 12/03/19 Ciprofloxacin HCl [Cipro 500 mg Tablet] 500 mg PO BID #20 tablet 12/07/19 Diltiazem HCl [Cardizem 30 mg Tablet] 30 mg PO Q8 #90 tablet 12/07/19 Metronidazole [Flagyl 500 mg Tablet] 500 mg PO BID #10 tablet 12/07/19 Sodium Bicarbonate [Sodium Bicarbonate 650 mg Tablet] 1,300 mg PO Q12 #60 tablet 12/07/19 Allergies/Adverse Reactions: Tetanus Vaccines and Toxoid [Tetanus] Allergy (Severe, Verified 12/19/19 15:22) reaction in Review of Systems Constitutional: PRESENT: as per HPI Respiratory: PRESENT: cough, dyspnea, sputum Gastrointestinal: PRESENT: abdominal pain Physical Exam Vital Signs: Temp Pulse Resp BP Pulse Ox 98.1 F 80 18 111/51 L 97 12/19/19 22:27 12/20/19 01:17 12/19/19 22:27 12/20/19 01:17 12/19/19 22:27 Intake & Output 12/18/19 12/19/19 12/20/19 06:59 06:59 06:59 Intake Total 1061 Balance 1061 Weight 89.1 kg Weight/Height Weight 89.1 kg Height 6 ft General appearance: PRESENT: mild distress, well-developed Head exam: PRESENT: atraumatic, normocephalic Eye exam: PRESENT: PERRLA Ear exam: PRESENT: normal external ear exam Mouth exam: PRESENT: dry mucosa Neck exam: PRESENT: full ROM Respiratory exam: PRESENT: crackles, decreased breath sounds, symmetrical, tachypnea Cardiovascular exam: PRESENT: irregular rhythm, +S1, +S2, tachycardia Pulses: PRESENT: normal radial pulses, +1 pedal pulses bilateral GI/Abdominal exam: PRESENT: tenderness Rectal exam: PRESENT: deferred Gentrourinary exam: PRESENT: indwelling catheter Extremities exam: PRESENT: +1 edema Musculoskeletal exam: PRESENT: full ROM Neurological exam: PRESENT: alert, oriented to person Skin exam: PRESENT: dry, pallor Laboratory/Radiographs Laboratory Results: 12/19/19 15:05 12/19/19 15:05 12/19/19 12/19/19 12/19/19 15:05 15:05 15:05 WBC 23.1 H RBC 3.44 L Hgb 9.2 L Hct 28.4 L MCV 83 MCH 26.8 L MCHC 32.5 RDW 20.2 H Plt Count 302 Seg Neutrophils % Not Reportable Sodium 134.6 L Potassium 4.7 Chloride 100 Carbon Dioxide 24 Anion Gap 11 BUN 43 H Creatinine 1.87 H Est GFR ( Amer) 42 L Glucose 84 Lactic Acid 3.1 H Calcium 7.6 L Total Bilirubin 2.8 H AST 59 Alkaline Phosphatase 314 H Total Protein 5.2 L Albumin 2.1 L Urine Color Urine Appearance Urine pH Ur Specific [place] Urine Protein Urine Glucose (UA) Urine Ketones Urine Blood Urine Nitrite Ur Leukocyte Esterase Urine WBC (Auto) Urine RBC (Auto) 12/19/19 12/19/19 12/19/19 17:15 18:10 22:00 WBC RBC Hgb Hct MCV MCH MCHC RDW Plt Count Seg Neutrophils % Sodium Potassium Chloride Carbon Dioxide Anion Gap BUN Creatinine Est GFR ( Amer) Glucose Lactic Acid 2.3 H 2.7 H Calcium Total Bilirubin AST Alkaline Phosphatase Total Protein Albumin Urine Color DARK YELLOW Urine Appearance CLOUDY Urine pH 5.0 Ur Specific [place] 1.016 Urine Protein 100 H Urine Glucose (UA) NEGATIVE Urine Ketones NEGATIVE Urine Blood MODERATE H Urine Nitrite NEGATIVE Ur Leukocyte Esterase SMALL H Urine WBC (Auto) 32 Urine RBC (Auto) 38 12/19/19 12/19/19 12/19/19 15:05 15:05 20:22 Creatine Kinase 69 CK-MB (CK-2) 0.89 Troponin I 0.050 0.055 Impressions: Chest X-Ray 12/19/19 15:51 IMPRESSION: Cannot exclude limited right lower lobe pneumonia. Abdomen/Pelvis CT 12/19/19 17:26 IMPRESSION: 1. The liver is markedly heterogeneous suggesting extensive metastatic disease to the liver. 2. There is mild right hydronephrosis/hydroureter into the pelvis. No obstructing calculus is seen. 3. Diverticulosis coli. 4. Ascites. 5. Uncomplicated inguinal hernias. Umbilical hernia contains only fat. 6. Moderate right pleural effusion with associated lower lobe atelectasis. All labs, radiographs, diagnostic studies and EKGs were personally reviewed: Yes In addition, reports of radiographic and diagnostic studies were read: Yes Critical Time Critical Time (minutes): 55 -: The care of a critically ill patient is dynamic. This note represents a static moment in the admission process. Orders and treatments may be given simultaneously and urgently, and time is not reimbursement representative of the treatment process. This patient requires Critical Care secondary to life threatening organ or limb dysfunction. Without Critical Care services, the patient is at risk for increa sed mortality and morbidity.
[2019-12-20] MEDS ORDERED: PANTOPRAZOLE SODIUM 40 MG TABLET.DR PO SCH (06:00)
[2019-12-20] MEDS ORDERED: DILTIAZEM HCL 30 MG TABLET PO SCH (06:00)
[2019-12-20] MEDS ORDERED: DILTIAZEM HCL 60 MG TABLET PO SCH (06:00)
--- NOTE | 2019-12-20 07:43 | PDOC CRITICAL CARE PROG REPORT ---
General Date:: 12/20/19 ICU Day:: 1 Hospital Day:: 1 Resuscitation Status: Do Not Resuscitate Events in the past 12 to 24 Hours:: HR converted, BP better Review of systems relevant to events:: CV Reason for ICU Addmission:: SVT, hypotension - Medications: Medications reviewed and adjusted accordingly: Yes Vasopressors:: None Sedation:: None Physical Exam Vital Signs: Temp Pulse Resp BP Pulse Ox 99.0 F 168 H 19 85/61 L 98 12/20/19 03:22 12/20/19 03:22 12/20/19 05:27 12/20/19 05:27 12/20/19 05:27 Intake & Output 12/19/19 12/20/19 12/21/19 06:59 06:59 06:59 Intake Total 1175 156 Output Total 125 Balance 1050 156 Weight 86.8 kg Weight/Height Weight 86.8 kg Height 6 ft General appearance: PRESENT: no acute distress, cooperative Head exam: PRESENT: atraumatic, normocephalic Eye exam: PRESENT: conjunctiva pink, EOMI, PERRLA. ABSENT: scleral icterus Ear exam: PRESENT: normal external ear exam Mouth exam: PRESENT: dry mucosa Respiratory exam: PRESENT: clear to auscultation enmanuel. ABSENT: rales, rhonchi, wheezes Cardiovascular exam: PRESENT: RRR. ABSENT: diastolic murmur, rubs, systolic murmur GI/Abdominal exam: PRESENT: normal bowel sounds, soft. ABSENT: distended, guarding, mass, organolmegaly, rebound, tenderness Rectal exam: PRESENT: deferred Gentrourinary exam: PRESENT: indwelling catheter Extremities exam: PRESENT: full ROM. ABSENT: calf tenderness, clubbing, pedal edema Musculoskeletal exam: PRESENT: normal inspection Neurological exam: PRESENT: alert, awake, oriented to person, oriented to place, oriented to time, oriented to situation, CN II-XII grossly intact. ABSENT: motor sensory deficit Skin exam: PRESENT: pallor Laboratory/Radiographs Laboratory Results: 12/19/19 15:05 12/19/19 15:05 12/19/19 12/19/19 12/19/19 15:05 15:05 15:05 WBC 23.1 H RBC 3.44 L Hgb 9.2 L Hct 28.4 L MCV 83 MCH 26.8 L MCHC 32.5 RDW 20.2 H Plt Count 302 Seg Neutrophils % Not Reportable Sodium 134.6 L Potassium 4.7 Chloride 100 Carbon Dioxide 24 Anion Gap 11 BUN 43 H Creatinine 1.87 H Est GFR ( Amer) 42 L Glucose 84 Lactic Acid 3.1 H Calcium 7.6 L Total Bilirubin 2.8 H AST 59 Alkaline Phosphatase 314 H Total Protein 5.2 L Albumin 2.1 L Urine Color Urine Appearance Urine pH Ur Specific [place] Urine Protein Urine Glucose (UA) Urine Ketones Urine Blood Urine Nitrite Ur Leukocyte Esterase Urine WBC (Auto) Urine RBC (Auto) 12/19/19 12/19/19 12/19/19 17:15 18:10 22:00 WBC RBC Hgb Hct MCV MCH MCHC RDW Plt Count Seg Neutrophils % Sodium Potassium Chloride Carbon Dioxide Anion Gap BUN Creatinine Est GFR ( Amer) Glucose Lactic Acid 2.3 H 2.7 H Calcium Total Bilirubin AST Alkaline Phosphatase Total Protein Albumin Urine Color DARK YELLOW Urine Appearance CLOUDY Urine pH 5.0 Ur Specific [place] 1.016 Urine Protein 100 H Urine Glucose (UA) NEGATIVE Urine Ketones NEGATIVE Urine Blood MODERATE H Urine Nitrite NEGATIVE Ur Leukocyte Esterase SMALL H Urine WBC (Auto) 32 Urine RBC (Auto) 38 12/19/19 12/19/19 12/19/19 15:05 15:05 20:22 Creatine Kinase 69 CK-MB (CK-2) 0.89 Troponin I 0.050 0.055 Impressions: Chest X-Ray 12/19/19 15:51 IMPRESSION: Cannot exclude limited right lower lobe pneumonia. Abdomen/Pelvis CT 12/19/19 17:26 IMPRESSION: 1. The liver is markedly heterogeneous suggesting extensive metastatic disease to the liver. 2. There is mild right hydronephrosis/hydroureter into the pelvis. No obstructing calculus is seen. 3. Diverticulosis coli. 4. Ascites. 5. Uncomplicated inguinal hernias. Umbilical hernia contains only fat. 6. Moderate right pleural effusion with associated lower lobe atelectasis. All labs, radiographs, diagnostic studies and EKGs were personally reviewed: Yes In addition, reports of radiographic and diagnostic studies were read: Yes Assessment and Plan - Diagnosis (1) Atrial fibrillation with rapid ventricular response Is this a current diagnosis for this admission?: Yes Plan: This is the reason for his ICU placement. He has converted to NSR at a rate of 80 with one dose on IV lopressor suggesting a ctacholamine surge from illness. Dehydration, PNA, possible aspiration and his malignant diseases contributing. He is now a DNR status per his . If he remains stable he will be downgraded to the [facility] in case IV rate control needs to be given. (2) Right lower lobe pneumonia Qualifiers: Pneumonia type: due to unspecified organism Qualified Code(s): J18.9 - Pneumonia, unspecified organism Is this a current diagnosis for this admission?: Yes Plan: This has the characteristics of an aspiration but without a definite event we will treat like a bacterial PNA with antibiotics. (3) Right renal mass Is this a current diagnosis for this admission?: Yes Plan: Not new (4) Urothelial carcinoma Is this a current diagnosis for this admission?: Yes Plan: Known disease likely contributing to his status. (5) Acute kidney injury Is this a current diagnosis for this admission?: Yes Plan: Baseline CR 1.2 current 1.9. His only request is for water. His teeth are dry. there is an element of dehydration probably contributing to this picture. Continue IVF Plan Summary: Continue IVF, PRN IV lopressor for rate control. If he remains stable he will be downgraded. Critical Time Critical Time (minutes): 35 Level of Care: ICU Anticipated discharge: Home with Homehealth Anticipated DC Timeframe: Other -: 1. The care of a critical patient is a dynamic process. This note is a auto service representative synopsis but static in nature. The timeframe for treatments given in order is not necessarily the actual time these treatments may have been done. 2. This patient requires critical care secondary to ongoing requirements for therapy not offered or safe outside the critical care environment. Transfer to a lower level of care will result in altered life or limb morbidity and mortality. 3. Multidisciplinary rounds completed. 4. ABCDE bundle addressed.
[2019-12-20 07:46] LABS: HEMATOCRIT 25.3 % (37.9-51.0); MEAN CORPUSCULAR HEMOGLOBIN 26.3 pg (27.0-33.4); MEAN CORPUSCULAR HGB CONC 31.7 g/dL (32.0-36.0); MEAN CORPUSCULAR VOLUME 83 fl (80-97); PLATELET COUNT 219 10^3/uL (150-450); RED BLOOD COUNT 3.05 10^6/uL (4.35-5.55); RED CELL DISTRIBUTION WIDTH 20.2 % (11.5-14.0); WHITE BLOOD COUNT 17.2 10^3/uL (4.0-10.5)
[2019-12-20 08:03] LABS: ALBUMIN 2.2 g/dL (3.5-5.0); ALKALINE PHOSPHATASE 269 U/L (38-126); ANION GAP 13 (5-19); ASPARTATE AMINO TRANSFERASE 69 U/L (17-59); BILIRUBIN,DIRECT 2.3 mg/dL (0.0-0.4); BLOOD UREA NITROGEN 48 mg/dL (7-20); CALCIUM 7.2 mg/dL (8.4-10.2); CARBON DIOXIDE 21 mmol/L (22-30); CHLORIDE 103 mmol/L (98-107); GLUCOSE 104 mg/dL (75-110); POTASSIUM 4.4 mmol/L (3.6-5.0)
[2019-12-20 08:17] LABS: ABSOLUTE LYMPHOCYTES# (MANUAL) 0.3 10^3/uL (0.5-4.7); ABSOLUTE MONOCYTES # (MANUAL) 0.5 10^3/uL (0.1-1.4); BASOPHILS % (MANUAL) 0 % (0-2); EOSINOPHILS % (MANUAL) 0 % (0-6); LYMPHOCYTES % (MANUAL) 2 % (13-45); MONOCYTES % (MANUAL) 3 % (3-13); SEGMENTED NEUTROPHILS % (MAN) 95 % (42-78); TOTAL CELLS COUNTED 100
[2019-12-20 08:18] LABS: ANISOCYTOSIS 2+; OVALOCYTES 1+; PLATELET COMMENT ADEQUATE; TOXIC GRANULATION SLIGHT
--- NOTE | 2019-12-20 08:47 | PDOC H&P ---
History of Present Illness Admission Date/PCP: 12/19/19 19:51 LUPE GARDUNO PA-C Patient complains of: Altered mental status and weakness and hypoxia History of Present Illness: ANJALI SABA is a 84 year old male This is a 84-year-old male's with a history of the bladder cancers with the mets in the colon in the kidney and the liver and the patient recently admitting in the hospital for the same problems with altered mental status came by the EMS because patient's noticed that patient was hypoxic and altered mental status In the emergency department patient O2 sat was 89%'s but patient's lactic acid was elevated and white count was 23,000Which consistence with the sepsis Patient CT abdomen and pelvis was all stable nothing new change but patient was hypotensive received IV fluid Patient was admitting in the IMCU start on IV antibiotic and IV fluid Patient is otherwise denied any chest pain no short of breath in the ER patient denied any abdominal pain patient's mental status is on and off as usual Overnight patient's also have a SVT with the 160 which patient have a history of the SVT seen by the Dr. Murcia in the past and patient's blood pressure was low patient was transferred to the ICU at that point With advanced disease discussed with the patient's son and the regarding the patient's current conditions and discussed with the oncology and agree with the home hospiceSome extra help due to the patient's advanced age and patient's son pretty much work outside the town Past Medical History Cardiac Medical History: Reports: Atrial Fibrillation, Hyperlipidema, Hypertension - meds x 20 yrs Denies: Coronary Artery Disease, Myocardial Infarction Pulmonary Medical History: Reports: Pneumonia - as child Denies: Asthma, Bronchitis, Chronic Obstructive Pulmonary Disease (COPD) Neurological Medical History: Denies: Seizures Renal/ Medical History: Reports: Chronic Kidney Disease, Other - acute on chronic kidney disease Malignancy Medical History: Reports: Colorectal Cancer, Liver Cancer, Renal (Kidney) Cancer Malignancy History Note: Bladder cancer Musculoskeltal Medical History: Denies: Arthritis Psychiatric Medical History: Denies: Depression Hematology: Denies: Anemia Past Surgical History Past Surgical History: Reports: Appendectomy, Colostomy Denies: Pacemaker Social History Information Source: Relative Lives with: Family, Spouse/Significant other Smoking Status: Former Smoker Frequency of Alcohol Use: None Hx Recreational Drug Use: No Drugs: None Hx Prescription Drug Abuse: No - Advance Directive Resuscitation Status: Do Not Resuscitate Family History Family History: None Parental Family History Reviewed: Yes Children Family History Reviewed: Yes Sibling(s) Family History Reviewed.: Yes Medication/Allergy Home Medications: Atorvastatin Calcium 40 mg PO DAILY 04/17/16 Gabapentin [Neurontin 100 mg Capsule] 100 mg PO TID 12/03/19 Hydrocodone/Acetaminophen [Lorcet 5-325 mg Tablet] 1 each PO Q6HP PRN 12/03/19 Megestrol Acetate 400 mg PO DAILY 12/03/19 Omeprazole 20 mg PO DAILY 12/03/19 Oxycodone HCl [Oxy-Ir 5 mg Tablet] 10 mg PO Q6HP PRN 12/03/19 Paroxetine HCl [Paxil 20 mg Tablet] 20 mg PO DAILY 12/03/19 Ciprofloxacin HCl [Cipro 500 mg Tablet] 500 mg PO BID #20 tablet 12/07/19 Diltiazem HCl [Cardizem 30 mg Tablet] 30 mg PO Q8 #90 tablet 12/07/19 Metronidazole [Flagyl 500 mg Tablet] 500 mg PO BID #10 tablet 12/07/19 Sodium Bicarbonate [Sodium Bicarbonate 650 mg Tablet] 1,300 mg PO Q12 #60 tablet 12/07/19 Allergies/Adverse Reactions: Tetanus Vaccines and Toxoid [Tetanus] Allergy (Severe, Verified 12/19/19 15:22) reaction in Review of Systems ROS unobtainable: Due to mental status All systems: reviewed and no additional remarkable complaints except as stated Physical Exam Vital Signs: Temp Pulse Resp BP Pulse Ox 99.0 F 93 19 85/61 L 98 12/20/19 03:22 12/20/19 07:46 12/20/19 05:27 12/20/19 05:27 12/20/19 05:27 Intake & Output 12/19/19 12/20/19 12/21/19 06:59 06:59 06:59 Intake Total 1175 156 Output Total 125 Balance 1050 156 Weight 86.8 kg General appearance: PRESENT: no acute distress, well-developed, well-nourished Head exam: PRESENT: atraumatic, normocephalic Eye exam: PRESENT: conjunctiva pink, EOMI, PERRLA. ABSENT: scleral icterus Ear exam: PRESENT: normal external ear exam Mouth exam: PRESENT: moist, tongue midline Neck exam: PRESENT: full ROM. ABSENT: carotid bruit, JVD, lymphadenopathy, thyromegaly Respiratory exam: PRESENT: decreased breath sounds Cardiovascular exam: PRESENT: tachycardia. ABSENT: diastolic murmur, rubs, systolic murmur Vascular exam: PRESENT: normal capillary refill GI/Abdominal exam: PRESENT: normal bowel sounds, soft. ABSENT: distended, guarding, mass, organolmegaly, rebound, tenderness Rectal exam: PRESENT: deferred Neurological exam: PRESENT: alert, altered, awake. ABSENT: motor sensory deficit Psychiatric exam: PRESENT: appropriate affect, normal mood. ABSENT: homicidal ideation, suicidal ideation Skin exam: PRESENT: dry, intact, warm. ABSENT: cyanosis, rash Results Laboratory Results: 12/20/19 07:33 12/20/19 07:33 12/19/19 12/19/19 12/19/19 15:05 15:05 15:05 WBC 23.1 H RBC 3.44 L Hgb 9.2 L Hct 28.4 L MCV 83 MCH 26.8 L MCHC 32.5 RDW 20.2 H Plt Count 302 Seg Neutrophils % Not Reportable Sodium 134.6 L Potassium 4.7 Chloride 100 Carbon Dioxide 24 Anion Gap 11 BUN 43 H Creatinine 1.87 H Est GFR ( Amer) 42 L Glucose 84 Lactic Acid 3.1 H Calcium 7.6 L Magnesium Total Bilirubin 2.8 H AST 59 Alkaline Phosphatase 314 H Total Protein 5.2 L Albumin 2.1 L Urine Color Urine Appearance Urine pH Ur Specific [place] Urine Protein Urine Glucose (UA) Urine Ketones Urine Blood Urine Nitrite Ur Leukocyte Esterase Urine WBC (Auto) Urine RBC (Auto) 12/19/19 12/19/19 12/19/19 17:15 18:10 22:00 WBC RBC Hgb Hct MCV MCH MCHC RDW Plt Count Seg Neutrophils % Sodium Potassium Chloride Carbon Dioxide Anion Gap BUN Creatinine Est GFR ( Amer) Glucose Lactic Acid 2.3 H 2.7 H Calcium Magnesium Total Bilirubin AST Alkaline Phosphatase Total Protein Albumin Urine Color DARK YELLOW Urine Appearance CLOUDY Urine pH 5.0 Ur Specific [place] 1.016 Urine Protein 100 H Urine Glucose (UA) NEGATIVE Urine Ketones NEGATIVE Urine Blood MODERATE H Urine Nitrite NEGATIVE Ur Leukocyte Esterase SMALL H Urine WBC (Auto) 32 Urine RBC (Auto) 38 12/20/19 12/20/19 12/20/19 07:33 07:33 07:33 WBC 17.2 H RBC 3.05 L Hgb 8.0 L Hct 25.3 L MCV 83 MCH 26.3 L MCHC 31.7 L RDW 20.2 H Plt Count 219 Seg Neutrophils % Not Reportable Sodium 136.7 L Potassium 4.4 Chloride 103 Carbon Dioxide 21 L Anion Gap 13 BUN 48 H Creatinine 1.99 H Est GFR ( Amer) 39 L Glucose 104 Lactic Acid 2.2 H Calcium 7.2 L Magnesium 2.5 H Total Bilirubin 3.0 H AST 69 H Alkaline Phosphatase 269 H Total Protein 5.0 L Albumin 2.2 L Urine Color Urine Appearance Urine pH Ur Specific [place] Urine Protein Urine Glucose (UA) Urine Ketones Urine Blood Urine Nitrite Ur Leukocyte Esterase Urine WBC (Auto) Urine RBC (Auto) 12/19/19 12/19/19 12/19/19 15:05 15:05 20:22 Creatine Kinase 69 CK-MB (CK-2) 0.89 Troponin I 0.050 0.055 Impressions: Chest X-Ray 12/19/19 15:51 IMPRESSION: Cannot exclude limited right lower lobe pneumonia. Abdomen/Pelvis CT 12/19/19 17:26 IMPRESSION: 1. The liver is markedly heterogeneous suggesting extensive me tastatic disease to the liver. 2. There is mild right hydronephrosis/hydroureter into the pelvis. No obstructing calculus is seen. 3. Diverticulosis coli. 4. Ascites. 5. Uncomplicated inguinal hernias. Umbilical hernia contains only fat. 6. Moderate right pleural effusion with associated lower lobe atelectasis. Assessment & Plan - Diagnosis (1) Sepsis Qualifiers: Sepsis type: sepsis due to unspecified organism Sepsis acute organ dysfunction status: with acute organ dysfunction Severe sepsis acute organ dysfunction type: encephalopathy Severe sepsis shock status: without septic shock Qualified Code(s): A41.9 - Sepsis, unspecified organism; R65.20 - Severe sepsis without septic shock; G93.40 - Encephalopathy, unspecified Is this a current diagnosis for this admission?: Yes Plan: Start on IV fluid and IV antibiotic most likely source is from the lung and the urine will get the all the cultures (2) Pleural effusion, right Is this a current diagnosis for this admission?: Yes Plan: Continues IV antibiotic (3) Right lower lobe pneumonia Qualifiers: Pneumonia type: due to unspecified organism Qualified Code(s): J18.9 - Pneumonia, unspecified organism Is this a current diagnosis for this admission?: Yes Plan: Continues IV antibiotic (4) Anemia Qualifiers: Anemia type: due to chronic kidney disease Chronic kidney disease stage: stage 3 (moderate) Qualified Code(s): N18.3 - Chronic kidney disease, stage 3 (moderate); D63.1 - Anemia in chronic kidney disease Is this a current diagnosis for this admission?: Yes (5) Metabolic encephalopathy Is this a current diagnosis for this admission?: Yes Plan: Due to the multiple conditions including the infections with electrolyte imbalance with the advanced stage of the cancers (6) Urothelial carcinoma Is this a current diagnosis for this admission?: Yes Plan: Patient having metastatic diseaseAnd patient is not a candidate for any chemotherapy and at this point discussed with oncology agree with the hospice care and very extensive discussed with the patient's son and the and agree with the home hospice with some extra help overall patient's prognosis is very poor and life expectancy is less than 6-month (7) Supraventricular tachycardia Is this a current diagnosis for this admission?: Yes Plan: Continues to Cardizem currently put on beta-keren - Time Time Spent: 50 to 70 Minutes Critical Time spent with patient: 25-34 minutes Medications reviewed and adjusted accordingly: Yes Anticipated Discharge Disposition: Home with Hospice Anticipated Discharge Timeframe: within 24 hours - Inpatient Certification Based on my medical assessment, after consideration of the patient's comorbidities, presenting symptoms, or acuity I expect that the services needed warrant INPATIENT care.: Yes I certify that my determination is in accordance with my understanding of Medicare's requirements for reasonable and necessary INPATIENT services [42 CFR 412.3e].: Yes Medical Necessity: Significant Comorbidiites Make Outpatient Treatment Too Risky, Need Close Monitoring Due to Risk of Patient Decompensation, Need For IV Fluids, Need for IV Antibiotics Post Hospital Care: D/C Buffing Wheel Former Automatic Documentation - Admit the patient in IMCU Very extensive discussed with oncology and Discussed with the patient's son and the with the patient overall prognosis is very poor Discussed with the patient And the family about inpatient hospice versus outpatient Patient's son agreed with the outpatient hospice with some extra help With the advanced bladder cancer with the metastatic disease patient's life expectancy is less than 6- month
[2019-12-20] MEDS: ENOXAPARIN SODIUM INJ 30 MG/0.3 ML DISP.SYRIN SUBCUT SCH (09:57)
[2019-12-20] MEDS ORDERED: METOPROLOL TARTRATE PF/INJ 5 MG/5 ML SDV IV SCH (10:00)
--- NOTE | 2019-12-20 12:21 | PDOC CONSULTATION ---
Consultation Consult Date: 12/20/19 Provider Consulted: DORA PULIDO Consult reason:: Hematology/Oncology consultation was requested for patient with stage IV bladder cancer and new liver lesions and mental status changes. History of Present Illness Admission Date/PCP: 12/19/19 19:51 LUPE GARDUNO PA-C History of Present Illness: ANJALI SABA is a 84 year old male currently undergoing treatment with Atezeloizumab for stage IV bladder cancer. Most recent dose was 11/16/2019. He has also been receiving EPO support. According to patient's , she believes he is trying to pass and he has been progressively worsening over the past few days. He has been lethargic, dyspnic, and overall declining. She states that his wishes were to at home, and she does not believe any further treatment is going to help at this point. Currently, patent is able to open eyes and look at me, but does not respond otherwise. Past Medical History Cardiac Medical History: Reports: Atrial Fibrillation, Hyperlipidema, Hypertension - meds x 20 yrs Denies: Coronary Artery Disease, Myocardial Infarction Pulmonary Medical History: Reports: Pneumonia - as child Denies: Asthma, Bronchitis, Chronic Obstructive Pulmonary Disease (COPD) Neurological Medical History: Denies: Seizures Renal/ Medical History: Reports: Chronic Kidney Disease, Other - acute on chronic kidney disease Malignancy Medical History: Reports: Colorectal Cancer, Liver Cancer, Renal (Kidney) Cancer Musculoskeltal Medical History: Denies: Arthritis Psychiatric Medical History: Denies: Depression Hematology: Denies: Anemia Past Surgical History Past Surgical History: Reports: Appendectomy, Colostomy Denies: Pacemaker Social History Lives with: Family, Spouse/Significant other Smoking Status: Former Smoker Frequency of Alcohol Use: None Hx Recreational Drug Use: No Drugs: None Hx Prescription Drug Abuse: No - Advance Directive Resuscitation Status: Do Not Resuscitate Family History Family History: None Parental Family History Reviewed: Yes Children Family History Reviewed: No Sibling(s) Family History Reviewed.: No Medication/Allergy Home Medications: Atorvastatin Calcium 40 mg PO DAILY 04/17/16 Gabapentin [Neurontin 100 mg Capsule] 100 mg PO TID 12/03/19 Hydrocodone/Acetaminophen [Lorcet 5-325 mg Tablet] 1 each PO Q6HP PRN 12/03/19 Megestrol Acetate 400 mg PO DAILY 08/02/20 Omeprazole 20 mg PO DAILY 12/03/19 Oxycodone HCl [Oxy-Ir 5 mg Tablet] 10 mg PO Q6HP PRN 12/03/19 Paroxetine HCl [Paxil 20 mg Tablet] 20 mg PO DAILY 12/03/19 Ciprofloxacin HCl [Cipro 500 mg Tablet] 500 mg PO BID #20 tablet 12/07/19 Diltiazem HCl [Cardizem 30 mg Tablet] 30 mg PO Q8 #90 tablet 12/07/19 Metronidazole [Flagyl 500 mg Tablet] 500 mg PO BID #10 tablet 12/07/19 Sodium Bicarbonate [Sodium Bicarbonate 650 mg Tablet] 1,300 mg PO Q12 #60 tablet 12/07/19 Allergies/Adverse Reactions: Tetanus Vaccines and Toxoid [Tetanus] Allergy (Severe, Verified 12/19/19 15:22) reaction in Review of Systems ROS unobtainable: Due to mental status Physical Exam Vital Signs: Temp Pulse Resp BP Pulse Ox 99.3 F 80 16 107/59 L 95 12/20/19 10:00 12/20/19 08:00 12/20/19 08:47 12/20/19 08:47 12/20/19 08:47 Intake & Output 12/19/19 12/20/19 12/21/19 06:59 06:59 06:59 Intake Total 1175 339 Output Total 125 75 Balance 1050 264 Weight 86.8 kg General appearance: PRESENT: severe distress Head exam: PRESENT: normocephalic Mouth exam: PRESENT: dry mucosa Neck exam: ABSENT: lymphadenopathy Respiratory exam: PRESENT: tachypnea, other - rattle heard throughout. Cardiovascular exam: PRESENT: RRR, tachycardia GI/Abdominal exam: PRESENT: soft. ABSENT: tenderness Extremities exam: ABSENT: pedal edema Neurological exam: PRESENT: altered Psychiatric exam: PRESENT: other - barely responsive. Skin exam: PRESENT: pallor, other - extremities are cold to touch. Results Laboratory Results: 12/20/19 07:33 12/20/19 07:33 12/19/19 12/19/19 12/19/19 15:05 15:05 15:05 WBC 23.1 H RBC 3.44 L Hgb 9.2 L Hct 28.4 L MCV 83 MCH 26.8 L MCHC 32.5 RDW 20.2 H Plt Count 302 Seg Neutrophils % Not Reportable Sodium 134.6 L Potassium 4.7 Chloride 100 Carbon Dioxide 24 Anion Gap 11 BUN 43 H Creatinine 1.87 H Est GFR ( Amer) 42 L Glucose 84 Lactic Acid 3.1 H Calcium 7.6 L Magnesium Total Bilirubin 2.8 H AST 59 Alkaline Phosphatase 314 H Total Protein 5.2 L Albumin 2.1 L Urine Color Urine Appearance Urine pH Ur Specific [place] Urine Protein Urine Glucose (UA) Urine Ketones Urine Blood Urine Nitrite Ur Leukocyte Esterase Urine WBC (Auto) Urine RBC (Auto) 12/19/19 12/19/19 12/19/19 17:15 18:10 22:00 WBC RBC Hgb Hct MCV MCH MCHC RDW Plt Count Seg Neutrophils % Sodium Potassium Chloride Carbon Dioxide Anion Gap BUN Creatinine Est GFR ( Amer) Glucose Lactic Acid 2.3 H 2.7 H Calcium Magnesium Total Bilirubin AST Alkaline Phosphatase Total Protein Albumin Urine Color DARK YELLOW Urine Appearance CLOUDY Urine pH 5.0 Ur Specific [place] 1.016 Urine Protein 100 H Urine Glucose (UA) NEGATIVE Urine Ketones NEGATIVE Urine Blood MODERATE H Urine Nitrite NEGATIVE Ur Leukocyte Esterase SMALL H Urine WBC (Auto) 32 Urine RBC (Auto) 38 12/20/19 12/20/19 12/20/19 07:33 07:33 07:33 WBC 17.2 H RBC 3.05 L Hgb 8.0 L Hct 25.3 L MCV 83 MCH 26.3 L MCHC 31.7 L RDW 20.2 H Plt Count 219 Seg Neutrophils % Not Reportable Sodium 136.7 L Potassium 4.4 Chloride 103 Carbon Dioxide 21 L Anion Gap 13 BUN 48 H Creatinine 1.99 H Est GFR ( Amer) 39 L Glucose 104 Lactic Acid 2.2 H Calcium 7.2 L Magnesium 2.5 H Total Bilirubin 3.0 H AST 69 H Alkaline Phosphatase 269 H Total Protein 5.0 L Albumin 2.2 L Urine Color Urine Appearance Urine pH Ur Specific [place] Urine Protein Urine Glucose (UA) Urine Ketones Urine Blood Urine Nitrite Ur Leukocyte Esterase Urine WBC (Auto) Urine RBC (Auto) 12/19/19 12/19/19 12/19/19 15:05 15:05 20:22 Creatine Kinase 69 CK-MB (CK-2) 0.89 Troponin I 0.050 0.055 Impressions: Chest X-Ray 12/19/19 15:51 IMPRESSION: Cannot exclude limited right lower lobe pneumonia. Abdomen/Pelvis CT 12/19/19 17:26 IMPRESSION: 1. The liver is markedly heterogeneous suggesting extensive metastatic disease to the liver. 2. There is mild right hydronephrosis/hydroureter into the pelvis. No obstructing calculus is seen. 3. Diverticulosis coli. 4. Ascites. 5. Uncomplicated inguinal hernias. Umbilical hernia contains only fat. 6. Moderate right pleural effusion with associated lower lobe atelectasis. Status: Image reviewed by me Assessment & Plan - Diagnosis (1) Atrial fibrillation with rapid ventricular response Is this a current diagnosis for this admission?: Yes Plan: Patient converted with diltiazem. (2) Urothelial carcinoma Is this a current diagnosis for this admission?: Yes Plan: After discussion with patient's , Dr. Cox, and Dr. Cid, all are in agreement for comfort measures only. would like for him to come home with Hospice, but does not believe she will be able to care for him at home. No other family members to help. She is considering having him stay in the hospital, as I believe it is possible that he will not survive the trip to the house. He is DNR. I have placed order for comfort meds only. - Plan Summary Plan Summary: Please call me with any concerns.
[2019-12-21 04:16] LABS: HEMOGLOBIN 8.5 g/dL (13.5-17.0); MEAN CORPUSCULAR HEMOGLOBIN 25.9 pg (27.0-33.4); MEAN CORPUSCULAR HGB CONC 31.6 g/dL (32.0-36.0); MEAN CORPUSCULAR VOLUME 82 fl (80-97); PLATELET COUNT 175 10^3/uL (150-450); RED CELL DISTRIBUTION WIDTH 20.3 % (11.5-14.0); WHITE BLOOD COUNT 16.5 10^3/uL (4.0-10.5)
[2019-12-21 04:34] LABS: ABSOLUTE MONOCYTES # (MANUAL) 0.2 10^3/uL (0.1-1.4); BASOPHILS % (MANUAL) 0 % (0-2); EOSINOPHILS % (MANUAL) 0 % (0-6); LYMPHOCYTES % (MANUAL) 0 % (13-45); MONOCYTES % (MANUAL) 1 % (3-13); SEGMENTED NEUTROPHILS % (MAN) 99 % (42-78); TOTAL CELLS COUNTED 100
[2019-12-21 04:35] LABS: ANISOCYTOSIS 2+; PLATELET COMMENT ADEQUATE; POLYCHROMASIA 1+; TOXIC GRANULATION 1+; TOXIC VACUOLATION PRESENT
[2019-12-21] MEDS: CEFEPIME 1 GM/D5W RTU 1 GM/50 ML RTUPB IV SCH (05:44)
[2019-12-21 08:45] VITALS: BP 116/65
[2019-12-21] MEDS: ENOXAPARIN SODIUM INJ 30 MG/0.3 ML DISP.SYRIN SUBCUT SCH (10:33)
--- NOTE | 2019-12-21 11:51 | PDOC PROGRESS REPORT ---
Subjective Progress Note for:: 12/21/19 Subjective:: Patient is much more talkative today. He wants to go home as soon as possible. I understand from his nurses that Hospice is making all arrangements in the home with his and plans are for discharge later today. He tells me that it is now 7:03 am and he would like to go home as soon as possible. Reason For Visit: HYPOTENSION WITH ATRIAL FIBRILLATION, RVR Physical Exam Vital Signs: Temp Pulse Resp BP Pulse Ox 98.4 F 88 20 116/65 96 12/21/19 08:46 12/21/19 08:44 12/21/19 10:00 12/21/19 08:44 12/21/19 10:00 Intake & Output 12/20/19 12/21/19 12/22/19 06:59 06:59 06:59 Intake Total 1175 339 Output Total 125 675 115 Balance 1050 -336 -115 Weight 86.8 kg 87.2 kg General appearance: PRESENT: well-developed, well-nourished Head exam: PRESENT: normocephalic Respiratory exam: PRESENT: other - rattles continue. Mild respiratory distress. Cardiovascular exam: PRESENT: RRR Extremities exam: ABSENT: pedal edema Neurological exam: PRESENT: alert, awake, oriented to person, oriented to place, oriented to time, oriented to situation Psychiatric exam: PRESENT: appropriate affect Skin exam: PRESENT: normal color Results Laboratory Results: 12/21/19 04:00 12/20/19 07:33 12/21/19 12/21/19 04:00 04:00 WBC 16.5 H RBC 3.30 L Hgb 8.5 L Hct 27.0 L MCV 82 MCH 25.9 L MCHC 31.6 L RDW 20.3 H Plt Count 175 Seg Neutrophils % Not Reportable Magnesium 2.5 H 12/19/19 17:15 Catheterized Urine Urine Culture - Final NO GROWTH 2 DAYS 12/19/19 12/19/19 12/19/19 15:05 15:05 20:22 Creatine Kinase 69 CK-MB (CK-2) 0.89 Troponin I 0.050 0.055 Impressions: Chest X-Ray 12/19/19 15:51 IMPRESSION: Cannot exclude limited right lower lobe pneumonia. Abdomen/Pelvis CT 12/19/19 17:26 IMPRESSION: 1. The liver is markedly heterogeneous suggesting extensive metastatic disease to the liver. 2. There is mild right hydronephrosis/hydroureter into the pelvis. No obstructing calculus is seen. 3. Diverticulosis coli. 4. Ascites. 5. Uncomplicated inguinal hernias. Umbilical hernia contains only fat. 6. Moderate right pleural effusion with associated lower lobe atelectasis. Assessment & Plan - Diagnosis (1) Atrial fibrillation with rapid ventricular response Is this a current diagnosis for this admission?: Yes Plan: Now resolved. (2) Urothelial carcinoma Is this a current diagnosis for this admission?: Yes Plan: Arrangements being made for patient to go home with Hospice. No further aggressive treatment planned. - Time Time Spent with patient: Less than 15 minutes
--- NOTE | 2019-12-21 12:57 | PDOC DISCHARGE SUMMARY ---
Impression - Admit/DC Date/PCP Admission Date/Primary Care Provider: 12/19/19 19:51 LUPE GARDUNO PA-C Discharge Date: 12/21/19 - Discharge Diagnosis (1) Atrial fibrillation with rapid ventricular response Is this a current diagnosis for this admission?: Yes (2) Right lower lobe pneumonia Is this a current diagnosis for this admission?: Yes (3) Right renal mass Is this a current diagnosis for this admission?: Yes (4) Urothelial carcinoma Is this a current diagnosis for this admission?: Yes (5) Acute kidney injury Is this a current diagnosis for this admission?: Yes - Assessment Summary: This patient is an 84 yo man with a RLL infiltrate. Probable aspiration. He developed an SVT to 160s and was started on a cardizem drip. He came to the ICU for continued rate issues and hypotension which resolved with one dose of IV lopressor. He has had colon cancer and a resection, has prostate and urothelial cancer as well. He wants to go home on hospice. Since this decision he has been in much better spirits. - Additional Information Resuscitation Status: Do Not Resuscitate Discharge Diet: As Tolerated Discharge Activity: Activity As Tolerated Referrals: LUPE ESPINOZA PA-C [Primary Care Provider] - Follow up as needed Home Medications: Atorvastatin Calcium 40 mg PO DAILY 04/17/16 Gabapentin [Neurontin 100 mg Capsule] 100 mg PO Q8 12/03/19 Megestrol Acetate 10 ml PO DAILY 12/03/19 Oxycodone HCl [Oxy-Ir 5 mg Tablet] 10 mg PO Q6HP PRN 12/03/19 Diltiazem HCl [Cardizem 30 mg Tablet] 30 mg PO Q8 #90 tablet 12/07/19 Sodium Bicarbonate [Sodium Bicarbonate 650 mg Tablet] 1,300 mg PO Q12 #60 tablet 12/07/19 History of Present Illiness History of Present Illness: ANJALI SABA is a 84 year old male with an admission diagnosis of SVT, hypotension. This has resolved. But he has urothelial and prostate cancers. He is reaching end stage, confirmed by his oncologist Dr. Mortensen. He is ready to go home on home hospice to comfortably live out the rest of his days. Hospital Course Hospital Course: His course has been rather short with a conversion to NSR and resolving of hypotension with one dose of lopressor and he is very anxious to get home. Physical Exam Vital Signs: Temp Pulse Resp BP Pulse Ox 98.4 F 88 20 116/65 96 12/21/19 08:46 12/21/19 08:44 12/21/19 08:44 12/21/19 08:44 12/21/19 08:44 Intake & Output 12/20/19 12/21/19 12/22/19 06:59 06:59 06:59 Intake Total 1175 339 Output Total 125 675 Balance 1050 -336 Weight 86.8 kg 87.2 kg General appearance: PRESENT: no acute distress, thin Head exam: PRESENT: atraumatic, normocephalic Eye exam: PRESENT: conjunctiva pink, EOMI, PERRLA. ABSENT: scleral icterus Ear exam: PRESENT: normal external ear exam Mouth exam: PRESENT: moist, tongue midline Respiratory exam: PRESENT: clear to auscultation enmanuel. ABSENT: rales, rhonchi, wheezes Cardiovascular exam: PRESENT: RRR. ABSENT: diastolic murmur, rubs, systolic murmur GI/Abdominal exam: PRESENT: normal bowel sounds, soft. ABSENT: distended, guarding, mass, organolmegaly, rebound, tenderness Rectal exam: PRESENT: deferred Extremities exam: PRESENT: full ROM. ABSENT: calf tenderness, clubbing, pedal edema Musculoskeletal exam: PRESENT: normal inspection Neurological exam: PRESENT: alert, awake, oriented to person, oriented to place, oriented to time, oriented to situation, CN II-XII grossly intact. ABSENT: motor sensory deficit Psychiatric exam: PRESENT: appropriate affect, normal mood. ABSENT: homicidal ideation, suicidal ideation Skin exam: PRESENT: pallor Results Laboratory Results: WBC 16.5 10^3/uL (4.0-10.5) H 12/21/19 04:00 RBC 3.30 10^6/uL (4.35-5.55) L 12/21/19 04:00 Hgb 8.5 g/dL (13.5-17.0) L 12/21/19 04:00 Hct 27.0 % (37.9-51.0) L 12/21/19 04:00 MCV 82 fl (80-97) 12/21/19 04:00 MCH 25.9 pg (27.0-33.4) L 12/21/19 04:00 MCHC 31.6 g/dL (32.0-36.0) L 12/21/19 04:00 RDW 20.3 % (11.5-14.0) H 12/21/19 04:00 Plt Count 175 10^3/uL (150-450) 12/21/19 04:00 Lymph % (Auto) Not Reportable 12/21/19 04:00 [place] % (Auto) Not Reportable 12/21/19 04:00 Eos % (Auto) Not Reportable 12/21/19 04:00 Baso % (Auto) Not Reportable 12/21/19 04:00 Absolute Neuts (auto) Not Reportable 12/21/19 04:00 Absolute Lymphs (auto) Not Reportable 12/21/19 04:00 Absolute Monos (auto) Not Reportable 12/21/19 04:00 Absolute Eos (auto) Not Reportable 12/21/19 04:00 Absolute Basos (auto) Not Reportable 12/21/19 04:00 Total Counted 100 12/21/19 04:00 Seg Neutrophils % Not Reportable 12/21/19 04:00 Seg Neuts % (Manual) 99 % (42-78) H 12/21/19 04:00 Lymphocytes % (Manual) 0 % (13-45) L 12/21/19 04:00 Monocytes % (Manual) 1 % (3-13) L 12/21/19 04:00 Eosinophils % (Manual) 0 % (0-6) 12/21/19 04:00 Basophils % (Manual) 0 % (0-2) 12/21/19 04:00 Abs Neuts (Manual) 16.3 10^3/uL (1.7-8.2) H 12/21/19 04:00 Abs Lymphs (Manual) 0.0 10^3/uL (0.5-4.7) L 12/21/19 04:00 Abs Monocytes (Manual) 0.2 10^3/uL (0.1-1.4) 12/21/19 04:00 Absolute Eos (Manual) 0.0 10^3/uL (0.0-0.6) 12/21/19 04:00 Abs Basophils (Manual) 0.0 10^3/uL (0.0-0.2) 12/21/19 04:00 Toxic Granulation 1+ 12/21/19 04:00 Toxic Vacuolation PRESENT 12/21/19 04:00 Platelet Comment ADEQUATE 12/21/19 04:00 Polychromasia 1+ 12/21/19 04:00 Poikilocytosis SLIGHT 12/19/19 15:05 Anisocytosis 2+ 12/21/19 04:00 Ovalocytes 1+ 12/20/19 07:33 PT 17.1 SEC (11.4-15.4) H 12/19/19 15:05 INR 1.38 12/19/19 15:05 Sodium 136.7 mmol/L (137-145) L 12/20/19 07:33 Potassium 4.4 mmol/L (3.6-5.0) 12/20/19 07:33 Chloride 103 mmol/L (98-107) 12/20/19 07:33 Carbon Dioxide 21 mmol/L (22-30) L 12/20/19 07:33 Anion Gap 13 (5-19) 12/20/19 07:33 BUN 48 mg/dL (7-20) H 12/20/19 07:33 Creatinine 1.99 mg/dL (0.52-1.25) H 12/20/19 07:33 Est GFR ( Amer) 39 (>60) L 12/20/19 07:33 Est GFR (MDRD) Non-Af 32 (>60) L 12/20/19 07:33 Glucose 104 mg/dL (75-110) 12/20/19 07:33 POC Glucose 144 mg/dL (70-110) H 12/20/19 01:07 Lactic Acid 2.2 mmol/L (0.7-2.1) H 12/20/19 07:33 Calcium 7.2 mg/dL (8.4-10.2) L 12/20/19 07:33 Magnesium 2.5 mg/dL (1.6-2.3) H 12/21/19 04:00 Total Bilirubin 3.0 mg/dL (0.2-1.3) H 12/20/19 07:33 Direct Bilirubin 2.3 mg/dL (0.0-0.4) H 12/20/19 07:33 Neonat Total Bilirubin Not Reportable 12/20/19 07:33 Neonat Direct Bilirubin Not Reportable 12/20/19 07:33 Neonat Indirect Bili Not Reportable 12/20/19 07:33 AST 69 U/L (17-59) H 12/20/19 07:33 ALT 17 U/L (<50) 12/20/19 07:33 Alkaline Phosphatase 269 U/L (38-126) H 12/20/19 07:33 Creatine Kinase 69 U/L (55-170) 12/19/19 15:05 CK-MB (CK-2) 0.89 ng/mL (<4.55) 12/19/19 15:05 Troponin I 0.055 ng/mL 12/19/19 20:22 Total Protein 5.0 g/dL (6.3-8.2) L 12/20/19 07:33 Albumin 2.2 g/dL (3.5-5.0) L 12/20/19 07:33 Urine Color DARK YELLOW 12/19/19 17:15 Urine Appearance CLOUDY 12/19/19 17:15 Urine pH 5.0 (5.0-9.0) 12/19/19 17:15 Ur Specific [place] 1.016 12/19/19 17:15 Urine Protein 100 mg/dL (NEGATIVE) H 12/19/19 17:15 Urine Glucose (UA) NEGATIVE mg/dL (NEGATIVE) 12/19/19 17:15 Urine Ketones NEGATIVE mg/dL (NEGATIVE) 12/19/19 17:15 Urine Blood MODERATE (NEGATIVE) H 12/19/19 17:15 Urine Nitrite NEGATIVE (NEGATIVE) 12/19/19 17:15 Urine Bilirubin NEGATIVE (NEGATIVE) 12/19/19 17:15 Urine Urobilinogen NEGATIVE mg/dL (<2.0) 12/19/19 17:15 Ur Leukocyte Esterase SMALL (NEGATIVE) H 12/19/19 17:15 Urine WBC (Auto) 32 /HPF 12/19/19 17:15 Urine RBC (Auto) 38 /HPF 12/19/19 17:15 Urine Bacteria (Auto) TRACE /HPF 12/19/19 17:15 Urine WBC Clumps FEW /HPF 12/19/19 17:15 Squamous Epi Cells Auto <1 /HPF 12/19/19 17:15 Amorphous Sediment Auto 2+ /HPF 12/19/19 17:15 Urine Mucus (Auto) RARE /LPF 12/19/19 17:15 Urine Ascorbic Acid NEGATIVE (NEGATIVE) 12/19/19 17:15 12/19/19 12/19/19 15:05 20:22 CK-MB (CK-2) 0.89 Troponin I 0.050 0.055 Impressions: Chest X-Ray 12/19/19 15:51 IMPRESSION: Cannot exclude limited right lower lobe pneumonia. Abdomen/Pelvis CT 12/19/19 17:26 IMPRESSION: 1. The liver is markedly heterogeneous suggesting extensive metastatic disease to the liver. 2. There is mild right hydronephrosis/hydroureter into the pelvis. No obstructing calculus is seen. 3. Diverticulosis coli. 4. Ascites. 5. Uncomplicated inguinal hernias. Umbilical hernia contains only fat. 6. Moderate right pleural effusion with associated lower lobe atelectasis. Plan Health Concerns: Comfort at end of life. Plan of Treatment: Home hospice. Goals: [facility] for remainder of life. Critical Time: 30 Level of Care: MEDICAL Stroke Is this a Stroke Patient?: No Acute Heart Failure - Is this a Heart Failure Patient?: No
== END 2019-12-21 13:22 | disposition hospice, home (50) | DRG 871 ==
LOC: ER 15:04 → EH 19:51 → 3S 22:07 → ICU 12-20 04:30
PROVIDERS: ADMIT Anesthesiology; ATTEND Anesthesiology
DX: A41.9 Sepsis, unspecified organism (principal); J18.9 Pneumonia, unspecified organism; G93.41 Metabolic encephalopathy; N17.9 Acute kidney failure, unspecified; I47.1 Supraventricular tachycardia; C22.9 Malignant neoplasm of liver, not specified as primary or secondary; E87.1 Hypo-osmolality and hyponatremia; Z66 Do not resuscitate; N28.89 Other specified disorders of kidney and ureter; C61 Malignant neoplasm of prostate; C67.9 Malignant neoplasm of bladder, unspecified; E78.5 Hyperlipidemia, unspecified; I12.9 Hypertensive chronic kidney disease with stage 1 through stage 4 chronic kidney disease, or unspecified chronic kidney disease; R65.20 Severe sepsis without septic shock; N18.3 Chronic kidney disease, stage 3 (moderate); D63.1 Anemia in chronic kidney disease; I95.9 Hypotension, unspecified; I48.0 Paroxysmal atrial fibrillation; E78.00 Pure hypercholesterolemia, unspecified; E86.0 Dehydration; Z85.038 Personal history of other malignant neoplasm of large intestine; Z90.49 Acquired absence of other specified parts of digestive tract; Z87.891 Personal history of nicotine dependence; Z79.899 Other long term (current) drug therapy; Z88.7 Allergy status to serum and vaccine; Z79.891 Long term (current) use of opiate analgesic
CPT/HCPCS: 36415; 71045; 74176; 80053; 81001; 82550; 82553; 82962; 83605; 83735; 84484; 85025; 85610; 87040; 87086; 93005; 93010; 94640; 96361; 96365; 99238; 99285; 99291; 99292; J0692; J0696; J3490; J7030; P9047